=== PATIENT | female | born 1930 | race Caucasian/White ===

== ENCOUNTER 2017-03-05 11:02 | Observation (INO) | payer MEDICARE, OTHER ==
[2017-03-05 11:49] LABS: Hematocrit 38 % (35-47); Hemoglobin 12.8 g/dl (12.0-16.0); Mean Corpuscular HGB Conc 34 g/dl (31-36); Mean Corpuscular Hemoglobin 33 pg (27-31); Mean Corpuscular Volume 97 fL (80-97); Mean Platelet Volume 9 um3 (7.4-10.4); Red Cell Distribution Width 13 % (10.5-15); White Blood Count 5.8 10^3/ul (3.5-10.8)
[2017-03-05] MEDS ORDERED: NS 0.9% 1000 ML* 1,000 ML IV ONE (12:00)
--- NOTE | 2017-03-05 12:00 | RAD ---
HISTORY: Syncope COMPARISONS: October 19, 2009 VIEWS: 2: Frontal and lateral views of the chest. FINDINGS: CARDIOMEDIASTINAL SILHOUETTE: The aorta is tortuous. The cardiomediastinal silhouette is otherwise unremarkable. LISA: The lisa are normal. PLEURA: The costophrenic angles are sharp. No pleural abnormalities are noted. LUNG PARENCHYMA: The lungs are clear. ABDOMEN: The upper abdomen is clear. There is no subphrenic gas. BONES AND SOFT TISSUES: No bone or soft tissue abnormalities are noted. OTHER: None. IMPRESSION: NO ACTIVE CARDIOPULMONARY DISEASE.
[2017-03-05 12:03] LABS: Albumin 3.1 g/dL (3.2-5.2); EGFR African American 67.8 (>60); EGFR Non-African American 52.7 (>60); Globulin 2.2 g/dL (2-4); Magnesium 2.3 mg/dL (1.9-2.7); Potassium 4.2 mmol/L (3.5-5.0); Total Bilirubin 0.7 mg/dL (0.2-1.0); Total Protein 5.3 g/dL (6.4-8.9)
[2017-03-05 13:36] LABS: Urine Bacteria Absent (Absent); Urine Bilirubin Negative (Negative); Urine Glucose Negative (Negative); Urine Nitrite Negative (Negative)
[2017-03-05 13:43] LABS: TSH (Thyroid Stimulating Horm) 4.64 mcIU/mL (0.34-5.60)
--- NOTE | 2017-03-05 17:00 | HP ---
CC: Dr. Carrillo; Dr. Sanon * [facility] MEDICINE HISTORY AND PHYSICAL: DATE OF ADMISSION: 03/05/17 PRIMARY CARE PHYSICIAN: Dr. Carrillo. INFORMATION SYSTEMS SECURITY ANALYST: Dr. Sanon. ATTENDING PHYSICIAN: Dr. Corey Hughes * (dictation provided by Preet Kaiser NP ). CHIEF COMPLAINT: Syncope. HISTORY OF PRESENT ILLNESS: Ms. Hickey is an 86-year-old female with a past medical history of dementia, coronary artery disease, cardiomyopathy with ejection fraction 30% to 35%, left bundle branch block, and hypertension, who presents to the hospital today with concern for syncopal episode. Ms. Hickey does have memory issues and much of the HPI is obtained from her who is at the bedside. Per the report, Ms. Hickey has been doing well in normal state of health with no complaints. She went this morning for a anabaptism breakfast. She ate pancakes and shortly thereafter, she passed out. She has no real clear recollection of the events. EMS was immediately called and she was brought to the hospital for evaluation. EMS noted that the patient had a sinus bradycardia with a heart rate running in the 40s. There was no report of loss of bowel or bladder control and no evidence that she bit her tongue. In the emergency room, Ms. Hickey was confirmed to be in a sinus bradycardia with a heart rate running in the 40s. Blood pressure was transiently low into the 70s, but has otherwise been running systolically in the 130s and I questioned whether or not this one time low blood pressure was accurate. Her labs are unremarkable. Her electrolytes are normal. EKG shows no acute process. PAST MEDICAL HISTORY: 1. Dementia. 2. Coronary artery disease, which is nonobstructive on last cardiac catheterization from 2009. 3. Cardiomyopathy with an ejection fraction 30% to 35% via last echo from 2014. 4. History of syncopal episodes, but none in the past 4 to 5 years. 5. History of PACs 6. History of PVCs. 7. History of paroxysmal SVT. 8. Left bundle branch block. 9. Hypertension. 10. Hypothyroidism. 11. Systemic lupus erythematosus. MEDICATIONS: As outpatient are: 1. Carvedilol 6.25 mg p.o. at 12 and at bedtime. 2. Donepezil 10 mg p.o. at noon. 3. Raloxifene 60 mg p.o. daily. 4. Aspirin 81 mg p.o. daily. 5. Cyanocobalamin 1000 mcg daily. 6. Levothyroxine 75 mcg p.o. daily. 7. Losartan 100 mg p.o. at noon. 8. Namenda XR 28 mg p.o. at bedtime. 9. Simvastatin 20 mg p.o. daily. ALLERGIES: To PROPOXYPHENE. FAMILY HISTORY: Father at 88 of old age. Mother at 97 of old age, but she also had a history of breast cancer. SOCIAL HISTORY: No report of alcohol, tobacco, or drug use. She lives with her who is her healthcare proxy. REVIEW OF SYSTEMS: A 14-point review of systems was completed with the patient and because of her memory loss, I also reviewed this with her who noted no acute complaints for her recently. PHYSICAL EXAMINATION GENERAL: Ms. Hickey is lying on the bed. She is in no acute distress. VITAL SIGNS: Temperature 96.8, heart rate 46, respiratory rate 15, O2 saturation 93% on room air, blood pressure 102/69. LUNGS: Clear to auscultation bilaterally with no accessory muscle use and good aeration. HEART: S1 and S2. No murmur, rub, or gallop, and regular. ABDOMEN: Soft and nontender with bowel sounds positive x4. EXTREMITIES: No cyanosis or edema. NEURO: She is alert, she is oriented x3, although she is forgetful, she is aware of where she is, and interacts appropriately. She moves all extremities equally. There is no facial asymmetry or focal weakness. Extraocular movements are intact. SKIN: Intact. DIAGNOSTIC STUDIES/LAB DATA: Sodium 140, potassium 4.2, chloride 107, serum bicarbonate 30, BUN 13, creatinine 1.00, glucose 100, lactic acid 1.0. TSH 4.64. WBC 5.8, hemoglobin 12.8, hematocrit 38, and platelet count 113. INR 1.01. Urine shows only trace leuk esterase. Chest x-ray shows no acute process. EKG shows sinus bradycardia with no evidence of ischemia with a heart rate of about 45. ASSESSMENT AND PLAN: Ms. Hickey is an 86-year-old female with past medical history of cardiomyopathy with an ejection fraction 30% to 35%, coronary artery disease, dementia, hypertension, who presents to the hospital today after syncopal episode at a anabaptism breakfast. Our plans are for observation in the hospital for the followin. Syncope: I question whether or not her syncope is related to her bradycardia. However, when I look back previous EKGs, her heart rate has been running in the 40s to 60s since 2007. Plan to hold carvedilol and Aricept, which is also shown to slow heart rate, tonight. The patient has no other symptoms to suggest infection or other etiology for her syncope. I will note that she has had episodes of syncope in the past, although it has been about 5 years since her last one. Those episodes were also worked up per the family's report and no known clear etiology was determined. The patient will be monitored on the telemetry unit. She will have orthostatic vital signs. 2. History of hypertension. Continue losartan. Plan to hold carvedilol tonight. 3. History of dementia. Plan to continue Namenda, but hold Aricept. 4. Hyperlipidemia. Continue simvastatin. 5. DVT prophylaxis with heparin subcu in this patient high risk for DVT. 6. Code status is full code. This was reviewed with the patient and at the bedside. 7. Disposition to telemetry. TIME SPENT: Approximately 60 minutes was spent in the admission of this patient , more than half time spent with the patient at the bedside reviewing the events leading up to this hospitalization, performing the physical examination, and reviewing my plan of care. PREET KAISER NP [id number]/[facility] #: [id number] ODILIA
[2017-03-05] MEDS ORDERED: Memantine XR CAP* 28 MG CAP.XR PO SCH (21:00)
[2017-03-05] MEDS: Heparin VIAL(*) 5000 UNITS/ML VIAL (FIVE THOUSAND) SUBCUT SCH (21:40)
[2017-03-06] MEDS ORDERED: Levothyroxine TAB* 75 MCG TAB PO SCH (06:00)
[2017-03-06] MEDS: Heparin VIAL(*) 5000 UNITS/ML VIAL (FIVE THOUSAND) SUBCUT SCH (08:54)
[2017-03-06] MEDS ORDERED: Carvedilol TAB* 6.25 MG PO SCH (09:00)
[2017-03-06] MEDS ORDERED: Aspirin Low Dose CHEW TAB* 81 MG PO SCH (09:00)
[2017-03-06] MEDS ORDERED: Cyanocobalamin TAB* 500 MCG PO SCH (09:00)
[2017-03-06] MEDS ORDERED: Atorvastatin* 10 MG TAB PO SCH (12:00)
[2017-03-06] MEDS ORDERED: Losartan TAB* 25 MG PO SCH (12:00)
[2017-03-06 12:50] VITALS: BP 123/60
--- NOTE | 2017-03-07 05:40 | DS ---
CC: Dr. Carrillo; Dr. Sanon DISCHARGE SUMMARY: DATE OF ADMISSION: 03/05/17 DATE OF DISCHARGE: 03/06/17 PRIMARY CARE PROVIDER: Dr. Carrillo. BUILDING CONSTRUCTION ESTIMATOR: Dr. Sanon. DISCHARGE DIAGNOSIS: Syncopal episode. SECONDARY DIAGNOSES: 1. Dementia. 2. Coronary artery disease. 3. Cardiomyopathy with ejection fraction of 30% to 35%. 4. History of prior syncopal episodes. 5. History of paroxysmal supraventricular tachycardia. 6. Left bundle-branch block. 7. Hypertension. 8. Hypothyroidism. 9. Systemic lupus erythematosus. MEDICATION LIST: 1. Aspirin 81 mg p.o. daily. 2. Carvedilol 6.25 mg p.o. at noon and 9 p.m. 3. Vitamin B12 300 mcg p.o. daily. 4. Levothyroxine 75 mcg p.o. daily. 5. Losartan 100 mg p.o. daily. 6. Raloxifene 60 mg p.o. daily. 7. Simvastatin 20 mg p.o. daily. Aricept and Namenda XR were discontinued. HOSPITAL COURSE: Mrs. Hickey is an 86-year-old lady with a past medical history as stated above that presented to the emergency room after a syncopal episode. The patient has dementia, is pleasantly c onfused at baseline and yesterday she went to a Taoism breakfast that included pancakes and after ea ting when they were on their way out, the patient passed out. She is unable to provide any details about her symptoms. The patient was monitored on telemetry where she had no significant arrhythmias. Troponin was negati ve. She had no signs of infection. She was mildly orthostatic and I did discuss with the patient and her son at bedside that Aricept an d Namenda, especially the extended release formulation can be associated with orthostasis and syncop al episodes. The son was in agreement with stopping those medications for now. The patient was fou nd to be mildly bradycardic in the high 50s, but this appears to be asymptomatic and her carvedilol was not changed. The patient has a systolic murmur on physical examination and the initial plan was for her to have a n echocardiogram done today and depending on the result be discharged home. Arrangements were made for the test, but when the bioprocessing manufacturing technician arrived to the bedside, the patient and her son refused t he test and states that they need to go home right now and would have the echocardiogram done as out patient. An echocardiogram done in 2007 had shown some aortic sclerosis and I suspect her murmur no w probably represents aortic stenosis. So, I believe she would benefit of an echocardiogram as outp atient for further evaluation of this syncopal episode. At this point, the patient is asymptomatic. She will be discharged home. She will follow up with Chad Carrillo as outpatient. PHYSICAL EXAMINATION: Vital Signs: Temperature 98.6, heart rate is 64, respiratory rate is 16, oxy gen saturation is 93% on room air, and blood pressure is 123/60. General: The patient is a pleasan tly confused elderly lady, sitting up in recliner, in no acute distress. CVS: Normal S1, S2. Regu lar rate and rhythm with a systolic murmur. Chest: Breath sounds present bilaterally with no added sounds. Neuro: She is alert, awake, oriented to self and place. Able to move all 4 extremities. DIET: Heart healthy diet. ACTIVITIES: As tolerated. DISPOSITION: To home. STATUS WHILE IN THE HOSPITAL: Observation. Please keep in mind that this is a summarized version of this patient's hospital stay. If you need m ore information, please feel free to call me at [phone] or please obtain the full medical recor ds. TIME SPENT: Approximately 45 minutes were spent to complete this discharge. [id number]/[facility] #: [id number]
--- NOTE | 2017-03-11 12:34 | ED ---
Alissa Branch SooYoung, scribed for Keenan Bowens MD on 03/05/17 at 1335 . Syncope/Near Syncope - HPI Summary HPI Summary: An 86 y/o F presents to ED after syncopal episode this AM. Pt was standing and talking to friends at onset of episode. Associated sx: vomiting. Denies neck pain, head trauma, CP. She ate and finished breakfast without problem. States she's been eating normally, although she is a light eater. Denies recent illness. PMHx: low ejection fraction. is positive that the pt didn't double her dose of meds. Denies prev ID. - History Of Current Complaint Chief Complaint: EDSyncope Time Seen by Provider: 03/05/17 12:00 Hx Obtained From: Patient, Family/Medical Manager Onset/Duration: Sudden Onset, Resolved - spontaneous Timing: Frequency Of Episodes - 1x Context: Witnessed Activity At Onset: At Rest - standing, talking Associated Head Trauma: No Associated Signs And Symptoms: Vomiting - Allergies/Home Medications Allergies/Adverse Reactions: Allergies Allergy/AdvReac Type Severity Reaction Status Date / Time Propoxyphene [From Darvon] Allergy Unknown Unknown Verified 04/20/15 15:28 Reaction Details PMH/Surg Hx/FS Hx/Imm Hx Previously Healthy: No Cardiovascular History: Reports: Other Cardiovascular Problems/Disorders - low ejection fraction Denies: Hx Myocardial Infarction, Hx Pacemaker/ICD Sensory History: Denies: Hx Hearing Aid Psychiatric History: Denies: Hx Panic Disorder - Surgical History Surgery Procedure, Year, and Place: TONSILS, RIGHT KNEE 1982, CATARACTS 2002, SPOKE WITH ODILON MICHAUD Infectious Disease History: No Infectious Disease History: Denies: Traveled Outside the [place] in Last 30 Days - Family History Known Family History: Positive: Other - Breast CA -mom - Social History Occupation: Retired Lives: With Family Alcohol Use: None Alcohol Amount: RECOVERING ALCOHOLIC SINCE 1981 Hx Substance Use: No Substance Use Type: Reports: None Hx Tobacco Use: Yes Smoking Status (MU): Former Smoker Review of Systems Negative: Fever, Chills Negative: Erythema Negative: Sore Throat Negative: Chest Pain Negative: Shortness Of Breath, Cough Positive: Vomiting. Negative: Abdominal Pain, Nausea Negative: dysuria, hematuria Negative: Myalgia, Edema, Other - neg:neck pain, head trauma Negative: Rash Neurological: Other - neg: dizziness Positive: Syncope All Other Systems Reviewed And Are Negative: Yes Physical Exam - Summary Physical Exam Summary: Constitutional: Well-developed, Well-nourished, Alert. (-) Distressed Skin: Warm, Dry HENT: Normocephalic; Atraumatic Eyes: Conjunctiva normal Neck: Musculoskeletal ROM normal neck. (-) JVD, (-) Stridor, (-) Tracheal deviation Cardio: Rhythm regular, rate normal, Heart sounds normal; Intact distal pulses; The pedal pulses are 2+ and symmetric. Radial pulses are 2+ and symmetric. (-) Murmur Pulmonary/Chest wall: Effort normal. (-) Respiratory distress, (-) Wheezes, (-) Rales Abd: Soft, (-) Tenderness, (-) Distension, (-) Guarding, (-) Rebound Musculoskeletal: (-) Edema Lymph: (-) Cervical adenopathy Neuro: Alert, Oriented x3 Psych: Mood and affect Normal Triage Information Reviewed: Yes Vital Signs On Initial Exam: Initial Vitals Temp Pulse Resp BP Pulse Ox 96.8 F 47 12 134/57 95 03/05/17 11:16 03/05/17 11:16 03/05/17 11:16 03/05/17 11:16 03/05/17 11:16 Vital Signs Reviewed: Yes - [place] Coma Scale Coma Scale Total: 14 Diagnostics - Vital Signs Vital Signs Temp Pulse Resp BP Pulse Ox 03/05/17 13:00 44 15 93 03/05/17 12:55 45 12 133/58 98 03/05/17 12:30 46 14 79/57 94 03/05/17 12:15 47 14 101/89 94 03/05/17 12:00 44 15 141/55 92 03/05/17 11:55 105/59 03/05/17 11:34 45 15 97 03/05/17 11:31 45 15 137/61 97 03/05/17 11:23 46 96 03/05/17 11:22 134/57 03/05/17 11:16 96.8 F 47 12 134/57 95 - Laboratory Lab Results: Lab Results 03/05/17 03/05/17 03/05/17 Range/Units 11:33 11:33 11:33 WBC 5.8 (3.5-10.8) 10^3/ul RBC 3.90 L (4.0-5.4) 10^6/ul Hgb 12.8 (12.0-16.0) g/dl Hct 38 (35-47) % MCV 97 (80-97) fL MCH 33 H (27-31) pg MCHC 34 (31-36) g/dl RDW 13 (10.5-15) % Plt Count 113 L (150-450) 10^3/ul MPV 9 (7.4-10.4) um3 Neut % (Auto) 54.4 (38-83) % Lymph % (Auto) 36.4 (25-47) % [place] % (Auto) 5.6 (1-9) % Eos % (Auto) 2.3 (0-6) % Baso % (Auto) 1.3 (0-2) % Absolute Neuts (auto) 3.2 (1.5-7.7) 10^3/ul Absolute Lymphs (auto) 2.1 (1.0-4.8) 10^3/ul Absolute Monos (auto) 0.3 (0-0.8) 10^3/ul Absolute Eos (auto) 0.1 (0-0.6) 10^3/ul Absolute Basos (auto) 0.1 (0-0.2) 10^3/ul Absolute Nucleated RBC 0 10^3/ul Nucleated RBC % 0 INR (Anticoag Therapy) 1.01 (0.89-1.11) APTT 22.8 L (26.0-36.3) seconds Sodium 140 (133-145) mmol/L Potassium 4.2 (3.5-5.0) mmol/L Chloride 107 (101-111) mmol/L Carbon Dioxide 30 (22-32) mmol/L Anion Gap 3 (2-11) mmol/L BUN 13 (6-24) mg/dL Creatinine 1.00 H (0.51-0.95) mg/dL Est GFR ( Amer) 67.8 (>60) Est GFR (Non-Af Amer) 52.7 (>60) BUN/Creatinine Ratio 13.0 (8-20) Glucose 100 (70-100) mg/dL Lactic Acid (0.5-2.0) mmol/L Calcium 8.0 L (8.6-10.3) mg/dL Magnesium 2.3 (1.9-2.7) mg/dL Total Bilirubin 0.70 (0.2-1.0) mg/dL AST 16 (13-39) U/L ALT 8 (7-52) U/L Alkaline Phosphatase 45 (34-104) U/L Ammonia (16-53) mol/L Total Creatine Kinase 35 (10-223) U/L Troponin I 0.00 (<0.04) ng/mL Total Protein 5.3 L (6.4-8.9) g/dL Albumin 3.1 L (3.2-5.2) g/dL Globulin 2.2 (2-4) g/dL Albumin/Globulin Ratio 1.4 (1-3) TSH Pending 03/05/17 03/05/17 Range/Units 11:33 11:33 WBC (3.5-10.8) 10^3/ul RBC (4.0-5.4) 10^6/ul Hgb (12.0-16.0) g/dl Hct (35-47) % MCV (80-97) fL MCH (27-31) pg MCHC (31-36) g/dl RDW (10.5-15) % Plt Count (150-450) 10^3/ul MPV (7.4-10.4) um3 Neut % (Auto) (38-83) % Lymph % (Auto) (25-47) % [place] % (Auto) (1-9) % Eos % (Auto) (0-6) % Baso % (Auto) (0-2) % Absolute Neuts (auto) (1.5-7.7) 10^3/ul Absolute Lymphs (auto) (1.0-4.8) 10^3/ul Absolute Monos (auto) (0-0.8) 10^3/ul Absolute Eos (auto) (0-0.6) 10^3/ul Absolute Basos (auto) (0-0.2) 10^3/ul Absolute Nucleated RBC 10^3/ul Nucleated RBC % INR (Anticoag Therapy) (0.89-1.11) APTT (26.0-36.3) seconds Sodium (133-145) mmol/L Potassium (3.5-5.0) mmol/L Chloride (101-111) mmol/L Carbon Dioxide (22-32) mmol/L Anion Gap (2-11) mmol/L BUN (6-24) mg/dL Creatinine (0.51-0.95) mg/dL Est GFR ( Amer) (>60) Est GFR (Non-Af Amer) (>60) BUN/Creatinine Ratio (8-20) Glucose (70-100) mg/dL Lactic Acid 1.0 (0.5-2.0) mmol/L Calcium (8.6-10.3) mg/dL Magnesium (1.9-2.7) mg/dL Total Bilirubin (0.2-1.0) mg/dL AST (13-39) U/L ALT (7-52) U/L Alkaline Phosphatase (34-104) U/L Ammonia 29 (16-53) mol/L Total Creatine Kinase (10-223) U/L Troponin I (<0.04) ng/mL Total Protein (6.4-8.9) g/dL Albumin (3.2-5.2) g/dL Globulin (2-4) g/dL Albumin/Globulin Ratio (1-3) TSH Result Diagrams: 03/05/17 11:33 03/05/17 11:33 Lab Statement: Any lab studies that have been ordered have been reviewed, and results considered in the medical decision making process. - Radiology CXR Xray Interpretation: No Acute Changes - IMPRESSION: No active cardiopulmonary dz. ED physician has reviewed this radiology report and agrees. Radiology Interpretation Completed By: Radiologist - EKG 1 Cardiac Rate: Bradycardia - 45bpm EKG Rhythm: Sinus Bradycardia EKG Interpretation: LBBB with frequent PVCs not perfusing Re-Evaluation - Re-Evaluation 1 Re-Evaluation Time: 15:15 Comment: Discussing results with pt and family, plan to admit. They voiced understanding. Course/Dx Course Of Treatment: An 86 y/o F presents to ED after syncopal episode this AM. Pt was standing and talking to friends at onset of episode. Associated sx: vomiting. Denies neck pain, head trauma, CP. She ate and finished breakfast without problem. States she's been eating normally, although she is a light eater. Denies recent illness. PMHx: low ejection fraction. is positive that the pt didn't double her dose of meds. Denies prev ID. Pt given fluids in ED. Bloodwork is without significant abnormalities. UA results are 1+ ketones, 1 + blood, trace leukocyte esterase. - Diagnoses Provider Diagnoses: Syncope - Physician Notifications Discussed Care of Patient With: Corey Hughes - hospitalist Time Discussed With Above Provider: 13:45 Instructed by Provider To: Admit As Inpatient Discharge - Discharge Plan Condition: Fair Disposition: ADMITTED TO [facility] The documentation as recorded by the Alissa ervin SooYoung accurately reflects the service I personally performed and the decisions made by me, Keenan Bowens MD.
== END 2017-03-06 13:17 | disposition home or self-care (01) ==
LOC: ED 11:02 → MEDTELE 14:16
PROVIDERS: ADMIT Internal Medicine; ATTEND Internal Medicine
DX: R55 Syncope and collapse (principal); F03.90 Unspecified dementia, unspecified severity, without behavioral disturbance, psychotic disturbance, mood disturbance, and anxiety; I25.10 Atherosclerotic heart disease of native coronary artery without angina pectoris; I10 Essential (primary) hypertension; I42.9 Cardiomyopathy, unspecified; I44.7 Left bundle-branch block, unspecified; E03.9 Hypothyroidism, unspecified; M32.9 Systemic lupus erythematosus, unspecified; R00.1 Bradycardia, unspecified; Z79.899 Other long term (current) drug therapy; Z88.8 Allergy status to other drugs, medicaments and biological substances
CPT/HCPCS: 36415; 71020; 80053; 81003; 81015; 82140; 82550; 83605; 83735; 84443; 84484; 85025; 85610; 85730; 87086; 93005; 96360; 96372; 99284; A9270-GY; G0378; J1644

== ENCOUNTER 2019-04-26 06:36 | Inpatient (IN) | payer MEDICARE ==
[2019-04-26] MEDS ORDERED: NS 0.9% 1000 ML** 1,000 ML IV ONE (06:39)
--- NOTE | 2019-04-26 06:42 | ED ---
Neurological HPI - HPI Summary HPI Summary: 88 year old female presents to the ED by EMS with slurred speech starting at 0550 per EMS. CODE JORGE CALLED AT 0636. THIS IS A LEVEL 5 CAVEAT, PATIENT IS UNABLE TO GIVE HISTORY. Last known well at 0550. Patient was at baseline when she suddenly began slurring speech while ambulating to the shower, per EMS. Per EMS, no other outward symptoms. Per [place], patient is freely ambulatory at baseline and speaks to her . PMHx of cardiomyopathy, hypothyroidism, HTN , HLD, and osteoporosis. No Hx of CVA. Lives at [facility]. - History of Current Complaint Stated Complaint: POSS STROKE PER EMS Hx Obtained From: EMS Hx From Patient Unobtainable Due To: Altered Mental Status Onset/Duration: Sudden Onset, Started minutes ago Neurological Deficit Location: Generalized Character: Impaired Speech Alleviating: Unknown Associated Signs and Symptoms: Positive: Impaired Speech TPA Considered: Yes - Allergy/Home Medications Allergies/Adverse Reactions: Allergies Allergy/AdvReac Type Severity Reaction Status Date / Time propoxyphene [From Darvon] Allergy Unknown Unknown Verified 04/26/19 07:01 Reaction Details PMH/Surg Hx/FS Hx/Imm Hx Cardiovascular History: Reports: Other Cardiovascular Problems/Disorders - low ejection fraction Denies: Hx Myocardial Infarction, Hx Pacemaker/ICD Sensory History: Denies: Hx Contacts or Glasses, Hx Hearing Aid Opthamlomology History: Denies: Hx Contacts or Glasses Psychiatric History: Denies: Hx Panic Disorder - Surgical History Surgery Procedure, Year, and Place: TONSILS, RIGHT KNEE 1982, CATARACTS 2002, SPOKE WITH ODILON MICHAUD - Family History Known Family History: Positive: Other - Breast CA -mom - Social History Alcohol Use: None Alcohol Amount: RECOVERING ALCOHOLIC SINCE 1981 Hx Substance Use: No Substance Use Type: Reports: None Hx Tobacco Use: Yes Smoking Status (MU): Former Smoker Review of Systems - ROS Summary Review of Systems Summary: THIS IS A LEVEL 5 CAVEAT Home Medications Medication Instructions Recorded Confirmed Type Aspirin 81 mg CHEW TAB* 81 mg PO DAILY 04/20/15 03/05/17 History Carvedilol TAB* [Coreg TAB*] 6.25 mg PO 1200,2100 04/20/15 03/05/17 History Cyanocobalamin TAB* [Vitamin B12 1,000 mcg PO DAILY 04/20/15 03/05/17 History TAB*] Levothyroxine Sodium [Synthroid] 75 mcg PO DAILY 04/20/15 03/05/17 History Losartan Potassium 100 mg PO 1200 04/20/15 03/05/17 History Raloxifene (NF) [Evista(NF)] 60 mg PO 1200 04/20/15 03/05/17 History Simvastatin TAB(NF) [Zocor 20 MG 20 mg PO 1200 04/20/15 03/05/17 History (NF)] Vitamin B 12 300 mcg PO DAILY 03/06/17 03/06/17 History Negative: Fever Positive: Slurred Speech All Other Systems Reviewed And Are Negative: No Physical Exam - Summary Physical Exam Summary: THIS IS A LEVEL 5 CAVEAT General: Well-developed, Well-nourished , Elderly female. No apparent distress. Intermittently follows commands. HEENT: Normocephalic, Atraumatic. Eyes: Conjuctiva normal, PERRL. Ears: TMs within normal limits. Nares: (-) discharge, (-) erythema. Oropharynx: Clear, mucous membranes moist, (-) exudates. Neck: Soft, FROM, (-) lymphadenopathy, (-) thyromegaly, (-) JVD. Cardiovascular: Normal sinus rhythm, (-) murmur. Lungs: Clear to auscultation bilaterally (-) wheezes, (-) rales, (-) rhonchi. Abdomen: Soft, non-tender, non-distended, (-) organomegaly, normal bowel sounds. Back: (-) CVA tenderness Extremities: No edema. Skin: Warm, dry, (-) rash. Neuro: Alert, not oriented. Speech is jumbled. Psychiatric: Mood normal, affect is mildly agitated. Triage Information Reviewed: Yes Vital Signs Reviewed: Yes Completion Of Physical Exam Limited Due To: Level 5 - [place] Coma Scale Best Eye Response: 4 - Spontaneous Best Motor Response: 5 - Purposeful Movement Best Verbal Response: 2 - Incomprehensible Words Coma Scale Total: 11 Procedures - Sedation Patient Received Moderate/Deep Sedation with Procedure: No Diagnostics - Laboratory Result Diagrams: 04/26/19 06:56 04/26/19 06:56 Lab Statement: Any lab studies that have been ordered have been reviewed, and results considered in the medical decision making process. - CT Brain CT CT Interpretation Completed By: Radiologist Summary of CT Findings: IMPRESSION: There is significant motion noted limiting evaluation of the brain base. There is no acute intracranial hemorrhage or significant mass effect visualized. Recommend repeat imaging. - EKG 0656 Cardiac Rate: NL Summary of EKG Findings: EKG at 0656 shows sinus rhythm at 61 bpm. LBBB. No acute changes. No STEMI. Dr. Sanders reviewed and interpreted this EKG. NIH Scale - NIH Scale Level of Consciousness: Alert/Keenly Responsive Ask Patient the Month and His/Her Age: Neither Correct/Aphasic Ask Pt to Open/Close Eyes and Cafe Associate/Release Non-Paretic Hand: Neither Correctly Best Gaze (Only Horizontal Eye Movement): Normal Visual Field Testing: No Visual Loss Facial Paresis-Pt to Smile & Close Eyes or Grimace Symmetry: Normal/Symmetrical Motor Function - Right Arm: No Drift-Holds 10 Seconds Motor Function - Left Arm: No Drift-Holds 10 Seconds Motor Function - Right Leg: No Drift-Holds 10 Seconds Motor Function - Left Leg: No Drift-Holds 10 Seconds Limb Ataxia-Must be out of Proportion to Weakness Present: Absent Sensory (Use Pinprick to Test Arms/Legs/Trunk/Face): Normal Best Language (Describe Picture, Name Items): Mute/Global Aphasia Dysarthria (Read Several Words): Unintelligible or Mute Extinction and Inattention: No Abnormality Total Score: 9 Re-Evaluation - Re-Evaluation First Eval Re-Evaluation Time: 07:15 Comment: Entered the room with the pt after receiving sign-out from Dr. Sanders and spoke initially with Dr. Fagan over the telestroke. Last well known was 549 this date. Second Eval Re-Evaluation Time: 07:26 Comment: Spoke again with Dr. Fagan on the telestroke from [place]. After assessment of the patient he recommends TPA and requests for us to contact family to see if they want to go through with it. I spoke with Odilon Michaud, the patient's son, and he reports that he is unable to give consent now. He needs to talk to other family members and will call back in 10 minutes. Third Eval Re-Evaluation Time: 07:38 Comment: Spoke again with Odilon Michaud, the pt's son. He requested that we give TPA to the pt. Dr. Fagan does not recommend CTA. At 0742 TPA was administered to the pt. Fourth Eval Re-Evaluation Time: 08:11 Comment: Consulted Dr. Adam regarding the pt's case. Course/Dx - Course Course Of Treatment: Signing out patient from Dr. Sanders to Dr. Ozuna at change of shift 0700 on 04/26/19, pending repeat CT, workup, and disposition. - Diagnoses Provider Diagnoses: CVA (cerebral vascular accident) During the Visit The Following Alert/Code Occurred: Code Sosa Is Visit Related: No Discharge ED - Sign-Out/Discharge Documenting (check all that apply): Sign-Out Patient Signing out patient TO: Alli Ozuna - Signing out patient from Dr. Sanders to Dr. Ozuna at change of shift 0700 on 04/26/19. - Discharge Plan Condition: Stable Disposition: ADMITTED TO [facility] - Billing Disposition and Condition Condition: STABLE Disposition: Admitted to [facility] - Attestation Statements Document Initiated by Scribe: Yes Documenting Scribe: Andres Peck Provider For Whom Vijaya is Documenting (Include Credential): Citlali Sanders MD Scribe Attestation: Andres Branch, scribed for Citlali Sanders MD on 04/26/19 at 1958. Scribe Documentation Reviewed: Yes Provider Attestation: The documentation as recorded by the Andres ervin accurately reflects the service I personally performed and the decisions made by Citlali marcos MD Status of Scribe Document: Viewed
--- NOTE | 2019-04-26 07:12 | ED ---
Progress - Progress Note Progress Note: The pt is a sign-out from Dr. Sanders at the 0700 04/26/2019 shift change pending repeat Brain CT, work up, and disposition. Re-Evaluation - Re-Evaluation First Eval Re-Evaluation Time: 07:15 Comment: Entered the room with the pt after receiving sign-out from Dr. Sanders and spoke initially with Dr. Fagan over the telestroke. Last well known was 0550 this date. Second Eval Re-Evaluation Time: 07:26 Comment: Spoke again with Dr. Fagan on the telestroke from [facility]. After assessment of the patient he recommends TPA and requests for us to contact family to see if they want to go through with it. I spoke with Jareth Hickey, the patient's son, and he reports that he is unable to give consent now. He needs to talk to other family members and will call back in 10 minutes. Third Eval Re-Evaluation Time: 07:38 Comment: Spoke again with Jareth Hickey, the pt's son. He requested that we give TPA to the pt. Dr. Fagan does not recommend CTA. At 0742 TPA was administered to the pt. Fourth Eval Re-Evaluation Time: 08:11 Comment: Consulted Dr. Adam regarding the pt's case. Course/Dx - Course Course Of Treatment: This patient was signed out by Dr. Sanders at shift change. She reports that the patient is an 88-year-old female who presents to the emergency department from [facility] with a chief complaint of slurred speech and unable to follow commands. She called a mika barrios sensitivities that the patient had another stroke. initial NIH score is equal to 9. Dr. Sanders and spoke with Dr. Fagan from [facility] and currently he is going to Telestroke. After Dr. Fagans assessment he recommends TPA. I did speak with Jareth Hickey the patients son and after he discussed the benefits and risk with the family members they decided to give the TPA. Therefore Dr. Fagan recommended TPA. He does not recommend as CTA at this point due to the severity of the Alzheimers disease. She recommends for the patient to be admitted to the hospital services. I discussed the findings and test results with Dr. Dennis from the intensive care and she accepted patient for admission. Patient seems to be getting better since the patient is able to speak in full sentences. - Diagnoses Provider Diagnoses: CVA (cerebral vascular accident) During the Visit The Following Alert/Code Occurred: Code Sosa Is Visit Related: No - Provider Notifications Discussed Care Of Patient With: Mine Gomez - Dr. Gomez will admit the pt to [facility]. Time Discussed With Above Provider: 08:30 Instructed by Provider To: Admit As Inpatient Discharge ED - Sign-Out/Discharge Documenting (check all that apply): Patient Departure - admit, Receiving Sign- Out Receiving patient FROM: Citlali Sanders - Discharge Plan Condition: Stable Disposition: ADMITTED TO [facility] - Billing Disposition and Condition Condition: STABLE Disposition: Admitted to [facility] - Attestation Statements Document Initiated by Scribe: Yes Documenting Scribe: Jeevan Panda Provider For Whom Vijaya is Documenting (Include Credential): Alli Ozuna MD Scribe Attestation: Jeevan Branch, scribed for Alli Ozuna MD on 04/26/19 at 1850. Scribe Documentation Reviewed: Yes Provider Attestation: The documentation as recorded by the miguelibJeevan khan accurately reflects the service I personally performed and the decisions made by Alli marcos MD Status of Scribe Document: Viewed
[2019-04-26 07:18] LABS: Activated Partial Thrombo Time 19.7 seconds (26.0-38.0); INR 1.06 (0.82-1.09)
[2019-04-26 07:19] LABS: ABS Basophils 0.1 10^3/ul (0-0.2); ABS Eosinophils 0.2 10^3/ul (0-0.6); ABS Lymphocytes 2.5 10^3/ul (1.0-4.8); ABS Monocytes 0.6 10^3/ul (0-0.8); ABS Neutrophils 3.1 10^3/ul (1.5-7.7); Eosinophil % 2.8 %; Hematocrit 36 % (35-47); Lymphocyte % 39.2 %; Mean Corpuscular HGB Conc 34 g/dL (31-36); Mean Corpuscular Hemoglobin 33 pg (27-31); Mean Corpuscular Volume 98 fL (80-97); Mean Platelet Volume 10.2 fL (7.4-10.4); Platelet Count 119 10^3/uL (150-450); Red Blood Count 3.65 10^6 /uL (3.70-4.87); Red Cell Distribution Width 13 % (10-15); White Blood Count 6.3 10^3/uL (3.5-10.8)
[2019-04-26 07:29] LABS: Albumin 3.2 g/dL (3.2-5.2); Albumin/Globulin Ratio 1.6 (1-3); BUN/Creatinine Ratio 19.4 (8-20); Calcium 8.5 mg/dL (8.6-10.3); EGFR African American 49.5 (>60); EGFR Non-African American 40.9 (>60); HDL Cholesterol 58.2 mg/dL; Potassium 3.9 mmol/L (3.5-5.0); Total Bilirubin 0.7 mg/dL (0.2-1.0); Total Protein 5.2 g/dL (6.4-8.9)
[2019-04-26 07:30] LABS: Troponin I 0.02 ng/mL (<0.03)
[2019-04-26] MEDS ORDERED: Iodixanol* (CONTRAST) 320 MG/ML 100 ML SDV IV ONE (07:32)
[2019-04-26] MEDS ORDERED: Alteplase* 100 MG VIAL ONE (07:42)
[2019-04-26] MEDS ORDERED: ALTEPLASE IV ONE ×2 (07:42)
[2019-04-26 08:20] LABS: Urine Appearance Clear; Urine Bilirubin Negative (Negative); Urine Blood 2+ (Negative); Urine Color Yellow; Urine Glucose Negative (Negative); Urine Ketones Negative (Negative); Urine Nitrite Negative (Negative); Urine Protein Negative (Negative); Urine Specific Gravity 1.008 (1.010-1.030); Urine Urobilinogen Negative (Negative)
[2019-04-26 08:39] LABS: Urine Bacteria Absent (Absent); Urine Red Blood Cell 2+(6-10/hpf) (Absent); Urine White Blood Cell Absent (Absent)
[2019-04-26 09:30] LABS: TSH (Thyroid Stimulating Horm) 3.44 mcIU/mL (0.34-5.60)
--- NOTE | 2019-04-26 10:51 | HP ---
HISTORY AND PHYSICAL: DATE OF ADMISSION: 04/26/19 PRIMARY CARE PROVIDER: Outside of hospital, Dr. Carrillo. CONTINUITY PERSON: Dr. Sanon. CHIEF COMPLAINT: Expressive aphasia, confusion. HISTORY OF PRESENT ILLNESS: The patient is an 88-year-old female with a history of dementia, coronary artery disease, cardiomyopathy with ejection fraction 30% to 35%, left bundle-branch block, history of syncopal episodes in the past. The patient was brought in by EMS from [facility] for evaluation of new onset expressive aphasia, noticed this morning at 5:50 a.m. The patient is unable to provide any history. History obtained from review of emergency department documentation and speaking with emergency room provider. The patient was at her normal self, was noted to be having slurred speech starting at 5:50 a.m. this morning. The patient was brought in to the ED by EMS around 6 :36 and mika barrios was called. The patient started having slurred speech while ambulating to the shower per EMS. No other symptoms were reported. Per [place], the patient is freely ambulatory at baseline and speaks to her . There was a change in status this morning. Code denis was called. The patient had CT of the brain, which showed a lot of motion artifact; however , did not show any acute findings. Telestroke team at [facility] was contacted, TPA was recommended. The patient's family was contacted, and the patient's son Jareth Hickey gave consent for TPA, which was administered at 7:40 a.m. The patient had significant improvement in her mental status, post TPA. She was able to put a comprehensible sentence together post TPA. She appeared more confused and was more aphasic when she came in as per ED documentation. The patient was seen and examined at bedside. The patient appeared drowsy; however , wakes up to verbal stimuli. She was oriented to place, person, and date. She was able to name the year, however, was not able to say correct date and week. The patient becomes drowsy and falls asleep during the interview. The patient was asking why she was here. She did not remember anything that has happened since this morning. The patient admitted that she is in the hospital currently. She has been requesting to be able to go home. Denies any pain or any other issues currently. The patient states that she has to use rest room. The patient otherwise was able to follow commands. PAST MEDICAL HISTORY: 1. Dementia. 2. Coronary artery disease, nonobstructive and last cardiac cath from 2009. 3. Cardiomyopathy with ejection fraction 30% to 35%. 4. History of syncopal episodes. 5. History of PACs. 6. History of PVCs. 7. History of paroxysmal SVT. 8. Left bundle-branch block. 9. Hypertension. 10. Hypothyroidism. 11. SLE. MEDICATIONS: 1. Carvedilol. 2. Donepezil. 3. Raloxifene. 4. Aspirin. 5. Cyanocobalamin. 6. Levothyroxine. 7. Losartan. 8. Namenda. 9. Simvastatin. ALLERGIES: PROPOXYPHENE. FAMILY HISTORY: Father at age 88 due to old age. Mother at 97. History of breast cancer in the family. SOCIAL HISTORY: She was a prior alcoholic, has been sober since the 80s. No drug abuse or tobacco abuse. She lives in nursing facility with her who is her healthcare proxy. The patient is DNR. The patient's son also makes decisions for her. REVIEW OF SYSTEMS: Limited given the patient's condition. PHYSICAL EXAMINATION GENERAL: The patient in bed, in no apparent distress, drowsy but arousable to verbal stimuli and able to follow commands. VITAL SIGNS: Temperature 98, pulse 58 beats per minute, respiratory rate 18 per minute, O2 sat 98% on room air, blood pressure 122/56. HEENT: Pupils are equal. Surgical pupils noted. Mucous membranes are moist. NECK: Normal range of motion. No JVD. LUNGS: Clear to auscultation. No wheezing or rhonchi. CARDIOVASCULAR: S1, S2 present. Regular, normal audible murmurs. ABDOMEN: Soft, nontender, nondistended. Bowel sounds present. EXTREMITIES: Normal range of motion. SKIN: No rash. NEUROLOGIC: Alert and oriented to place and person. Speech is a still little bit slurred. The patient is able to spontaneously move all the extremities. No sensory deficits are noted. Cranial nerve exam is limited given the patient' s drowsiness. She was able to stick the tongue out, able to close the eyes shut. She was able to squeeze the fingers tight. PSYCHIATRIC: Slightly anxious. DIAGNOSTIC STUDIES/LAB DATA: WBC count 6.3, hemoglobin 12, hematocrit 36, platelet count 119. Sodium 143, potassium 3.9, chloride 110, bicarb 29, BUN 24 , creatinine 1.24. Glucose was 84 on BMP. Repeat glucose of 42 with point of care, repeat glucose ordered. Calcium 8.5, lactate within normal limits. AST slightly elevated at 45, T-bili 0.7, ALT 20, alk phos 45, total protein 5.2. LDL 61, total cholesterol of 133. UA showed 2+ blood and 2+ rbc's, likely traumatic from Delacruz insertion. CT of the brain as described above in HPI. Chest x-ray was personally reviewed. No acute cardiopulmonary disease noted. EKG showed sinus rhythm with ventricular rate around 65 and evidence of left bundle- branch block. ASSESSMENT AND PLAN: 88-year-old female with a history of dementia, coronary artery disease with systolic congestive heart failure, history of left bundle- branch block, lupus, hypothyroidism, and hypertension, admitted with slurred speech. Pt was also noted to have low blood glucose on point of care, however normal levels on BMP The patient was found to be having NIH stroke scale of 9. The patient received TPA around 7:40 a.m. on 04/26/19. The patient had quick neurological improvement post TPA. The patient will be admitted to ICU for close monitoring post TPA. She is not hypertensive at this time. Frequent neuro checks ordered. Will order f/u CT in am. Will avoid medications that could cause bleeding, monitor closely for any bleeding events. Monitor blood pressures closely. Neurology was consulted. Telestroke was consulted this morning by ED. Will continue with frequent neuro checks. Continue with IV fluids at low rate to avoid hypotension. TIME SPENT: Total time spent on admission is 45 minutes. [id number]/[facility] #: [id number] [facility]
[2019-04-26] MEDS: NS 0.9% 1000 ML** 1,000 ML IV SCH (11:00)
--- NOTE | 2019-04-26 13:43 | PN ---
Subjective Date of Service: 04/26/19 Length of Stay: 1 Days Neurology is following for sudden onset of word-finding difficulty. Interval History: Review of the history, Mrs. Hickey is an 88-year-old demented woman who lives at [facility] for the past one week who presented with an episode of aphasia. She was evaluated by Dr. Fagan via teleneurology. She had severe expressive aphasia and was given an NIHSS of 9. She had sudden onset of aphasia witnessed by staff. Witnessed onset of symptoms at 550 a.m. The patient was seen once transferred to the ICU. She had significant improvement in her speech and language. She was having conversations. She was asking the examiner to stay in the room with her and not leave her alone. She wanted to "go home." Family arrived at bedside. History was obtained and the patient unfortunately has dementia of 10+ years. She was wondering in the streets few weeks ago that led to the admission to a [facility]. Please note that the patient had hypoglycemia of blood glucose in the 40's, but reported blood glucose of 80's by EMS. It's unclear if the tPA or improvement in hypoglycemia improved her speech. She denied any headaches. Her BP is within a good range. She was crying every time the BP cuff turned on. Review of Systems: Denied CP, SOB, or palpitations. Objective Active Medications: Sodium Chloride (Ns 0.9% 1000 Ml) 1,000 mls @ 75 mls/hr IV PER RATE GERRI Vital Signs 04/26/19 04/26/19 04/26/19 06:39 06:49 06:52 Temperature 97.4 F Pulse Rate 52 66 Respiratory 12 Rate Blood Pressure 120/88 115/65 122/56 (mmHg) O2 Sat by Pulse 94 95 Oximetry 04/26/19 04/26/19 04/26/19 06:53 07:00 07:31 Temperature 98.0 F Pulse Rate 58 59 74 Respiratory 18 97 18 Rate Blood Pressure 122/56 120/88 (mmHg) O2 Sat by Pulse 98 96 93 Oximetry 04/26/19 04/26/19 04/26/19 08:00 08:54 09:00 Temperature Pulse Rate 54 48 49 Respiratory 13 17 17 Rate Blood Pressure 93/59 (mmHg) O2 Sat by Pulse 95 94 94 Oximetry 04/26/19 04/26/19 04/26/19 09:12 09:21 09:22 Temperature 97.4 F 97.4 F Pulse Rate 50 55 Respiratory 23 42 Rate Blood Pressure 93/59 119/77 (mmHg) O2 Sat by Pulse 94 95 Oximetry 04/26/19 04/26/19 04/26/19 09:29 09:31 09:46 Temperature 97.4 F Pulse Rate 49 55 57 Respiratory 14 21 22 Rate Blood Pressure 109/48 109/68 109/43 (mmHg) O2 Sat by Pulse 95 95 94 Oximetry 04/26/19 04/26/19 04/26/19 10:00 10:01 10:16 Temperature Pulse Rate 50 49 55 Respiratory 9 7 16 Rate Blood Pressure 109/48 86/53 (mmHg) O2 Sat by Pulse 96 94 Oximetry 04/26/19 04/26/19 04/26/19 10:21 10:32 10:46 Temperature Pulse Rate 45 65 54 Respiratory 11 24 45 Rate Blood Pressure 103/49 119/61 121/62 (mmHg) O2 Sat by Pulse 96 94 93 Oximetry 04/26/19 04/26/19 04/26/19 11:00 11:01 11:31 Temperature Pulse Rate 50 55 59 Respiratory 17 29 17 Rate Blood Pressure 103/76 107/90 (mmHg) O2 Sat by Pulse 97 98 96 Oximetry 04/26/19 04/26/19 12:00 12:30 Temperature 97.2 F Pulse Rate 49 59 Respiratory 10 19 Rate Blood Pressure 100/48 105/61 (mmHg) O2 Sat by Pulse 98 97 Oximetry Intake and Output Last 24 Hours 04/24/19 04/25/19 04/26/19 04/27/19 06:59 06:59 06:59 06:59 Intake Total 50 Output Total 0 Balance 50 Weight 107 lb 8 oz 107 lb Intake: Oral 50 Output: Delacruz 0 Oxygen Devices in Use Now: None Neurology Exam: General: Well nourished, well developed, and in no acute distress, frail female. HEENT: Normocephelic/atraumatic, sclera anicteric, mucous membranes moist Neck: Supple Chest: Clear to auscultation bilaterally Cardiovascular: Regular rate and rhythm without murmurs, rubs, gallops Extremities: No clubbing, cyanosis, or edema Neurological Findings: Awake, alert to self but not place or time. She is crying and feels scared. Reassurance was provided. Speech: fluent without dysarthria, repetition intact Cranial Nerve: PERRL, EOM intact, VFF, no nystagmus, face symmetric bilaterally , facial sensation intact Motor: moves all extremities antigravity and to command symmetrically. Sensation: intact to LT/PP bilaterally upper and lower extremities Deep Tendon Reflex: 1 symmetric in the upper/lower extremities, Babinski - down going. 0 at the ankles Finger to nose, rapid alternating movements intact without tremor, no dysdiadochokinesia Gait: wide based antalgic gait due to knee pain ont he right Result Diagrams: 04/26/19 06:56 04/26/19 06:56 Microbiology and Other Data: Microbiology 04/26/19 09:20 Nasal Screen MRSA (PCR) - Final Nasal Mrsa Not Detected Assessment/Plan Mrs. Vane Hickey is an 88-year-old female who has advanced dementia 10+ years, dyslipidemia, and hypertension who presented to [facility] for sudden onset word finding difficulty. The patient's neurological exam was notable for severe aphasia. She had an elevated NIHSS of 9. After family verbal consent, she received IV tPA. Few hours later, the patient is able to ambulate and speak without any difficulties. Her blood glucose had improved to the 100's. 1. Sudden onset aphasia. Differential diagnosis includes left MCA stroke vs. hypoglycemia. Symptoms resolved. Continue post-tPA care and monitoring. Recommendations: Please repeat a CT head without contrast 24 hours post tPA. Full consultation note was completed by Dr. Fagan from . Critical care time: 35 minutes discussing post-tPA care with the patient and family.
[2019-04-26] MEDS ORDERED: Haloperidol INJ IV/IM* 5 MG/ML AMP ONE (14:27)
[2019-04-26] MEDS ORDERED: Haloperidol INJ IV/IM* 5 MG/ML AMP IV SLOW PU ONE (14:47)
[2019-04-26] MEDS: Haloperidol INJ IV/IM* 5 MG/ML AMP IV SLOW PU PRN (20:11)
[2019-04-27] MEDS: NS 0.9% 1000 ML** 1,000 ML IV SCH (01:42)
[2019-04-27] MEDS: Haloperidol INJ IV/IM* 5 MG/ML AMP IV SLOW PU PRN (01:50)
[2019-04-27 10:49] VITALS: BP 133/71
[2019-04-27] MEDS ORDERED: Cyanocobalamin TAB* 500 MCG PO SCH (11:00)
[2019-04-27] MEDS ORDERED: Levothyroxine TAB* 75 MCG TAB PO SCH (11:00)
[2019-04-27] MEDS ORDERED: Aspirin 81 mg CHEW TAB* 81 MG TAB.CHEW PO SCH (11:00)
--- NOTE | 2019-04-27 11:51 | PN ---
Progress Note - Progress Note Date of Service: 04/27/19 - Progress note Note: Pt seen and examined at bedside this amorning. Pts son at bedside. O/n events noted. Pt required small dose of haldol last night, has been calm this am Active Medications Generic Name Dose Route Start Last Admin Trade Name Freq PRN Reason Stop Dose Admin Aspirin 81 mg 04/27/19 11:00 Aspirin 81 Mg Chew Tab* PO DAILY GERRI Carvedilol 6.25 mg 04/27/19 12:00 Coreg Tab* PO 1200,2100 GERRI Cyanocobalamin 1,000 mcg 04/27/19 11:00 Vitamin B12 Tab* PO DAILY GERRI Haloperidol Lactate 5 mg 04/26/19 19:58 04/27/19 01:50 Haldol Inj Iv/Im* IV SLOW PU 5 mg Q6H PRN Administration AGITATION Levothyroxine Sodium 75 mcg 04/27/19 11:00 Synthroid Tab* PO DAILY@0600 COUNT INCLUDES THE [facility] Vital Signs Temp Pulse Resp BP Pulse Ox 99 F 54 13 133/71 94 04/27/19 04:00 04/27/19 11:00 04/27/19 11:00 04/27/19 08:44 04/27/19 11:00 O/E: Elderly f in NAD HEENT: PERRLA, no JVD Lungs: Good a/e b/l CVS: S1, S2+ Abd: Soft, BS+ Ext: NOrmal ROM Neuro: Speech is fluent. No focal deficits Skin: No rash Laboratory Results - last 24 hr 04/26/19 13:06 POC Glucose (mg/dL) 118 H A/P: 88-year-old female who has advanced dementia 10+ years, dyslipidemia, and hypertension who presented to [facility] for sudden onset word finding difficulty, noted to have aphasia. She had an elevated NIHSS of 9. After verbal consent from family, she received IV tPA around 7:40 am 04/26/19. Her blood glucose had improved to the 100's. She has improved neurologically. Left MCA stroke vs. hypoglycemia. Pt s/p tPA, symptoms resolved. Rpt CT brain this am showed no acute changes/bleeding Pt doing well other than episodes of confusion last night Speech improved, no other focal neuro deficits Pt`s BP improved, hemodynamically stable Pt able to tolerate po Delacruz was removed, pt ambulated in [facility] Neuro f/u appreciated Pt to be d/c home Family at bedside
[2019-04-27] MEDS ORDERED: Carvedilol TAB* 6.25 MG PO SCH (12:00)
--- NOTE | 2019-04-27 12:01 | DS ---
DISCHARGE SUMMARY: DATE OF ADMISSION: 04/26/19 DATE OF DISCHARGE: 04/27/19 REASON FOR ADMISSION: Expressive aphasia, confusion. DISCHARGE DIAGNOSES: 1. Cerebrovascular accident 2. Hypoglycemia. 3. Confusion secondary to baseline dementia. OTHER SECONDARY DIAGNOSES: 1. Severe dementia 2. Coronary artery disease, nonobstructive from last cath. 3. Cardiomyopathy with ejection fraction 30% to 35%. 4. History of syncopal episodes in the past. 5. History of premature atrial contractions, premature ventricular contractions , paroxysmal supraventricular tachycardia. 6. Left bundle-branch block. MEDICATIONS AT THE TIME OF DISCHARGE: The patient being discharged with home medications, no new medications started on this hospitalization. 1. Vitamin B12 300 mcg daily. 2. Simvastatin 20 mg p.o. daily. 3. Evista. 4. Raloxifene 60 mg p.o. daily. 5. Losartan 100 mg p.o. daily. 6. Levothyroxine 75 mcg daily. 8. Vitamin B12 1000 mcg daily. 9. Carvedilol 6.25 mg at noon and 9 p.m. 10. Aspirin 81 mg daily. TESTING DONE DURING THIS HOSPITALIZATION: The patient with no significant anemia noted on the labs. Platelets were low, which is baseline for the patient. The patient noted to have creatinine at 1.24, slightly increased from her baseline, likely secondary to dehydration. The patient was noted to have low glucose; in ED, had 42, subsequently improved to 118. The patient had mildly low calcium at 8.5, total protein was low at 5.2, AST was slightly elevated at 45. CT brain on admission showed motion artifact, but did not reveal any evidence of acute changes. Repeat CT done this morning showed no bleeding post tPA. Chest x-ray on admission did not reveal any acute abnormality. BRIEF SUMMARY OF RECENT HOSPITALIZATION: 88-year-old female with history of dementia, cardiac history with systolic CHF, cardiac arrhythmia, admitted with slurred speech and confusion, was brought into the emergency room on 04/26/19 at 5:50 a.m. She was found to be her normal self prior to that, so it was thought to be an acute change for her. The patient was confused and agitated. She was also noted to have low blood sugar on arrival at 42. The patient's blood glucose improved after applesauce. The patient received tPA after ED consulted [facility]. The patient had quick improvement in speech and did not have any other neurological findings post tPA. The patient was monitored in the ICU post tPA for 24 hours. The patient had periods of confusion and agitation yesterday, which is likely secondary to baseline dementia and acute delirium from being in the hospital. She has had significant improvement with Haldol. The patient has been doing well and is at her baseline this morning. Family is at bedside. The patient's son is requesting to have the patient discharged home today. She lives in [facility]. The patient otherwise has been hemodynamically stable this morning. She had episodes of hypotension last night, which are likely secondary to dehydration and possibly from the Haldol effect. She has been saturating well on room air. She is bradycardic, which she is at her baseline. Delacruz catheter was discontinued. The patient was able to ambulate without any issues. Neurology, Dr. Adam has followed up on the patient. He is agreeable with discharging the patient. She will go home on home medications, which include aspirin and statin. Given significant dementia and concern for falls, she might not be a candidate for Plavix. No further testing will be done as inpatient for evaluation of her CVA. She will follow up with Neurology and primary care as outpatient for further testing. TIME SPENT: Total time spent in the discharge included 40 minutes. [id number]/[facility] #: [id number] ODILIA
--- NOTE | 2019-04-27 14:00 | PN ---
Subjective Date of Service: 04/27/19 Length of Stay: 1 Days Neurology is following for a transient episode of aphasia. Interval History: She looks marvelous today. She was relieved when the urinary catheter was removed. She walked around the hallway. She is pleasantly demented. She denied any headaches or visual disturbance. She asked her son at bedside to stay near her and not leave her alone. She was hypotensive overnight but asymptomatic. Repeat CT head without contrast completed on 04/27/2019: no acute intracranial abnormality. Review of Systems: Denied CP, SOB, or palpitations. Objective Active Medications: Aspirin (Aspirin 81 Mg Chew Tab*) 81 mg PO DAILY [facility] Last Admin: 04/27/19 12:01 Dose: 81 mg Carvedilol (Coreg Tab*) 6.25 mg PO 1200,2100 [facility] Last Admin: 04/27/19 12:01 Dose: 6.25 mg Cyanocobalamin (Vitamin B12 Tab*) 1,000 mcg PO DAILY [facility] Last Admin: 04/27/19 12:01 Dose: 1,000 mcg Haloperidol Lactate (Haldol Inj Iv/Im*) 5 mg IV SLOW PU Q6H PRN PRN Reason: AGITATION Last Admin: 04/27/19 01:50 Dose: 5 mg Levothyroxine Sodium (Synthroid Tab*) 75 mcg PO DAILY@0600 [facility] Last Admin: 04/27/19 12:01 Dose: 75 mcg Vital Signs 04/27/19 04/27/19 04/27/19 08:44 09:00 09:15 Temperature Pulse Rate 53 53 Respiratory 21 18 19 Rate Blood Pressure 133/71 (mmHg) O2 Sat by Pulse 94 87 Oximetry 04/27/19 04/27/19 10:00 11:00 Temperature Pulse Rate 59 54 Respiratory 12 13 Rate Blood Pressure (mmHg) O2 Sat by Pulse 93 94 Oximetry Intake and Output Last 24 Hours 04/25/19 04/26/19 04/27/19 04/28/19 06:59 06:59 06:59 06:59 Intake Total 1852 Output Total 1250 Balance 602 Weight 107 lb 8 oz 106 lb 3.075 oz Intake: IV Fluids 1602 NS (0.9%) 1602 Oral 250 Output: Delacruz 1250 Oxygen Devices in Use Now: None Neurology Exam: General: Well nourished, well developed, and in no acute distress. Frail and demented. HEENT: Normocephelic/atraumatic, sclera anicteric, mucous membranes moist Neck: Supple Chest: Clear to auscultation bilaterally Cardiovascular: Regular rate and rhythm without murmurs, rubs, gallops Extremities: No clubbing, cyanosis, or edema Neurological Findings: Awake, alert, and oriented to self and son but not place or time. Speech: fluent without dysarthria, repetition intact Cranial Nerve: PERRL, EOM intact, VFF, no nystagmus, face symmetric bilaterally , facial sensation intact Motor: s/s throughout, proximal and distal extremities x4 tone/bulk normal Sensation: intact to LT/PP bilaterally upper and lower extremities Finger to nose, rapid alternating movements intact without tremor, no dysdiadochokinesia Gait: not assessed as she walked minutes before my assessment Result Diagrams: 04/26/19 06:56 04/26/19 06:56 Microbiology and Other Data: Microbiology 04/26/19 09:20 Nasal Screen MRSA (PCR) - Final Nasal Mrsa Not Detected Assessment/Plan Mrs. Vane Hickey is an 88-year-old female who has advanced dementia 10+ years, dyslipidemia, and hypertension who [place] [facility] [place] onset word finding difficulty. The patient's neurological exam was notable for severe aphasia. She had an elevated NIHSS of 9. With the patient's family approval, she received IV tPA per the recommendation of Dr. Mcclure at . Few hours later , the patient was able to ambulate and speak without any difficulties. Her blood glucose was initially in the low 40's and had improved to the 100's after apple sauce. 1. Sudden onset aphasia that resolved within hours after her glucose was within normal range and following IV tPA therapy. Differential diagnosis includes left MCA TIA vs symptomatic hypoglycemia. I suspect the latter diagnosis. The family would like to minimize any further testing and would like the patient to be discharged to [facility] today. I informed them about getting an MRI of the brain and an ECHO, but they decline further testing appropriately trying to prevent the patient from developing hospital related delirium. I agree with their decision and she will be discharged from the ICU today. 2. Advanced dementia Recommendations: - Monitor her blood glucose and blood pressure regularly (daily). Keep her hydrated. Continue aspirin therapy. Continue simvastatin. Discussed fall precautions. No need for further neurological work-up as an inpatient. Follow- up with neurology as an outpatient in 6 weeks. Follow-up with your PCP in 4-5 days.
== END 2019-04-27 14:00 | disposition home or self-care (01) | DRG 62 ==
LOC: ED 06:36 → ICU 08:41
PROVIDERS: ADMIT Internal Medicine; ATTEND Internal Medicine
DX: I63.9 Cerebral infarction, unspecified (principal); I42.9 Cardiomyopathy, unspecified; I50.22 Chronic systolic (congestive) heart failure; F05 Delirium due to known physiological condition; E16.2 Hypoglycemia, unspecified; F03.90 Unspecified dementia, unspecified severity, without behavioral disturbance, psychotic disturbance, mood disturbance, and anxiety; I25.10 Atherosclerotic heart disease of native coronary artery without angina pectoris; I44.7 Left bundle-branch block, unspecified; E86.0 Dehydration; R47.81 Slurred speech; I95.9 Hypotension, unspecified; R00.1 Bradycardia, unspecified; R47.01 Aphasia; E03.9 Hypothyroidism, unspecified; I11.0 Hypertensive heart disease with heart failure; M32.9 Systemic lupus erythematosus, unspecified; Z66 Do not resuscitate; R29.709 NIHSS score 9; M81.0 Age-related osteoporosis without current pathological fracture; E78.5 Hyperlipidemia, unspecified; R40.2142 Coma scale, eyes open, spontaneous, at arrival to emergency department; R40.2352 Coma scale, best motor response, localizes pain, at arrival to emergency department; R40.2232 Coma scale, best verbal response, inappropriate words, at arrival to emergency department; Z79.82 Long term (current) use of aspirin; Z79.899 Other long term (current) drug therapy; Z79.890 Hormone replacement therapy; Z88.5 Allergy status to narcotic agent; Z87.891 Personal history of nicotine dependence
CPT/HCPCS: 36415; 70450; 71045; 80053; 80061; 81003; 81015; 83605; 84443; 84484; 85025; 85610; 85730; 87641; 93005; 99284; A9270-GY; J1630; J2997

== ENCOUNTER 2019-04-28 15:29 | Emergency (ER) | payer MEDICARE ==
[2019-04-28 15:47] VITALS: BP 125/72
== END 2019-04-28 16:30 | disposition left against medical advice (07) ==
LOC: ED 15:29
DX: M25.561 Pain in right knee (principal); Z53.21 Procedure and treatment not carried out due to patient leaving prior to being seen by health care provider

== ENCOUNTER 2019-06-06 20:59 | Emergency (ER) | payer MEDICARE ==
--- NOTE | 2019-06-06 21:22 | ED ---
Syncope/Near Syncope - HPI Summary HPI Summary: Patient is an 88 y/o F presenting to [facility] via EMS from nursing facility for reported syncopal episode. It is reported that the patient was using the bathroom when the episode occurred. Staff that was present was able to lower the patient to the ground. No injuries or illness reported. Patient denies pain in the room. She is unsure why she is in the hospital and states that she wants to go home. She is alert and oriented x1, level 5 caveat secondary to dementia. Home medications and allergies are reviewed. - History Of Current Complaint Chief Complaint: EDSyncope Time Seen by Provider: 06/06/19 21:08 Hx Obtained From: EMS Hx From Patient Unobtainable Due To: Dementia Onset/Duration: Resolved - not syncopal currently Timing: Intermittent Episode Lasting Context: Witnessed Activity At Onset: Other - using bathroom Associated Head Trauma: No Associated Signs And Symptoms: Negative - Allergies/Home Medications Allergies/Adverse Reactions: Allergies Allergy/AdvReac Type Severity Reaction Status Date / Time propoxyphene [From Darvon] Allergy Unknown Unknown Verified 06/06/19 21:03 Reaction Details Home Medications: Home Medications Cholecalciferol TAB* [Vitamin D TAB*] 2,000 units PO DAILY 06/06/19 [History Confirmed 06/06/19] Furosemide [Lasix] 20 mg PO DAILY 06/06/19 [History Confirmed 06/06/19] LORazepam [Ativan 0.5 MG TAB] 0.5 mg PO DAILY PRN 06/06/19 [History Confirmed ] Melatonin 5 mg PO DAILY 06/06/19 [History Confirmed 06/06/19] Quetiapine Fumarate [Seroquel 50 mg tab] 25 mg PO QPM 06/06/19 [History Confirmed 06/06/19] PMH/Surg Hx/FS Hx/Imm Hx Cardiovascular History: Reports: Hx Coronary Artery Disease, Other Cardiovascular Problems/Disorders - low ejection fraction Denies: Hx Myocardial Infarction, Hx Pacemaker/ICD Musculoskeletal History: Reports: Hx Osteoporosis Sensory History: Denies: Hx Contacts or Glasses, Hx Hearing Aid Opthamlomology History: Denies: Hx Contacts or Glasses Neurological History: Reports: Hx Dementia Psychiatric History: Reports: Other Psychiatric Issues/Disorders - Hx of dementia Denies: Hx Panic Disorder - Surgical History Surgery Procedure, Year, and Place: TONSILS, RIGHT KNEE 1982, CATARACTS 2002, SPOKE WITH ODILON MICHAUD Hx Anesthesia Reactions: No Infectious Disease History: No Infectious Disease History: Denies: Traveled Outside the [place] in Last 30 Days - Family History Known Family History: Positive: Other - Breast CA -mom - Social History Alcohol Use: None Alcohol Amount: RECOVERING ALCOHOLIC SINCE 1981 Hx Substance Use: No Substance Use Type: Reports: None Hx Tobacco Use: Yes Smoking Status (MU): Former Smoker Review of Systems - ROS Summary Review of Systems Summary: Home Medications Medication Instructions Recorded Confirmed Type Aspirin 81 mg CHEW TAB* 81 mg PO DAILY 04/20/15 03/05/17 History Carvedilol TAB* [Coreg TAB*] 6.25 mg PO 1200,2100 04/20/15 03/05/17 History Cyanocobalamin TAB* [Vitamin B12 1,000 mcg PO DAILY 04/20/15 03/05/17 History TAB*] Levothyroxine Sodium [Synthroid] 75 mcg PO DAILY 04/20/15 03/05/17 History Losartan Potassium 100 mg PO 1200 04/20/15 03/05/17 History Raloxifene (NF) [Evista(NF)] 60 mg PO 1200 04/20/15 03/05/17 History Simvastatin TAB(NF) [Zocor 20 MG 20 mg PO 1200 04/20/15 03/05/17 History (NF)] Vitamin B 12 300 mcg PO DAILY 03/06/17 03/06/17 History level 5 caveat secondary to dementia Constitutional: Other - negative - pain, injuries, illnesses Positive: Syncope All Other Systems Reviewed And Are Negative: No - Comments Additional Review of Systems Comments: level 5 caveat secondary to dementia Physical Exam - Summary Physical Exam Summary: General: Well-developed, Elderly and thin female. No acute distress. HEENT: Normocephalic, Atraumatic. Eyes: Conjuctiva normal, PERRL. Oropharynx: Clear, mucous membranes moist, (-) exudates. Neck: Soft, FROM, (-) lymphadenopathy, (-) thyromegaly, (-) JVD. Cardiovascular: Normal sinus rhythm, (-) murmur. Lungs: Clear to auscultation bilaterally (-) wheezes, (-) rales, (-) rhonchi. Abdomen: Soft, non-tender, non-distended, (-) organomegaly, normal bowel sounds. Back: (-) CVA tenderness Extremities: No edema. Skin: Warm, dry, (-) rash. Neuro: Alert and oriented x1, history is confused, poor memory level 5 caveat secondary to dementia, GCS 13. Psychiatric: Uncooperative, limited exam secondary to level 5 caveat Triage Information Reviewed: Yes Vital Signs On Initial Exam: Initial Vitals Temp Pulse Resp BP Pulse Ox 97.3 F 59 18 104/53 97 06/06/19 21:02 06/06/19 21:02 06/06/19 21:02 06/06/19 21:02 06/06/19 21:02 Vital Signs Reviewed: Yes - [place] Coma Scale Best Eye Response: 4 - Spontaneous Best Motor Response: 5 - Purposeful Movement Best Verbal Response: 4 - Confused Coma Scale Total: 13 Procedures - Sedation Patient Received Moderate/Deep Sedation with Procedure: No Diagnostics - Vital Signs Vital Signs Temp Pulse Resp BP Pulse Ox 06/06/19 21:02 97.3 F 59 18 104/53 97 - Laboratory Result Diagrams: 06/06/19 21:52 06/06/19 21:52 Lab Statement: Any lab studies that have been ordered have been reviewed, and results considered in the medical decision making process. - Radiology CXR Radiology Interpretation Completed By: ED Physician Summary of Radiographic Findings: No infiltrate or pleural effusion, pending official report. - CT BRAIN CT CT Interpretation Completed By: Radiologist Summary of CT Findings: IMPRESSION: No acute intracranial abnormality. THIS REPORT WAS REVIEWED BY ED PHYSICIAN. - EKG 2154 Cardiac Rate: NL - rate of 76 BPM EKG Rhythm: Sinus Rhythm Summary of EKG Findings: EKG showed NSR with rate of 76 BPM, no STEMI. EKG has been reviewed and interpreted by ED physician. Course/Dx Course Of Treatment: 88 year old female sent from [facility] by ambulance after near syncopal event. she was on the toilet and was standing up when suddnely she started falling and staff caught her. patient has known dementia and is oriented to one. no head trauma. exam WNL. workup essentially negative. patient received fluids, Seroquel 25 mg PO and Ativan 0.5 mg PO. patient discharged back to [facility]. follow up with PCP, follow up sooner for any worsening symptoms. - Diagnoses Provider Diagnoses: Near syncope Discharge ED - Sign-Out/Discharge Documenting (check all that apply): Patient Departure - discharge - Discharge Plan Condition: Stable Disposition: HOME Patient Education Materials: Near Syncope (ED) Referrals: Jony Carrillo MD [Primary Care Provider] - 3 Days Additional Instructions: PLEASE RETURN TO ED FOR ANY NEW OR WORSENING SYMPTOMS. PLEASE FOLLOW UP WITH YOUR PRIMARY CARE PHYSICIAN WITHIN THREE DAYS. - Billing Disposition and Condition Condition: STABLE Disposition: Home - Attestation Statements Document Initiated by Vijaya: Yes Documenting Scribe: GE NEVAREZ Provider For Whom Vijaya is Documenting (Include Credential): SANDRA BAI MD Scribe Attestation: GE Branch, scribed for SANDRA BAI MD on 06/07/19 at 0546. Scribe Documentation Reviewed: Yes Provider Attestation: The documentation as recorded by the GE ervin accurately reflects the service I personally performed and the decisions made by me, SANDRA BAI MD Status of Scribe Document: Viewed
[2019-06-06] MEDS: NS 0.9% 1000 ML** 1,000 ML IV ONE (21:47)
[2019-06-06 22:18] LABS: ABS Eosinophils 0.2 10^3/ul (0-0.6); ABS Lymphocytes 1.7 10^3/ul (1.0-4.8); ABS Monocytes 0.6 10^3/ul (0-0.8); ABS Neutrophils 2.8 10^3/ul (1.5-7.7); Eosinophil % 3.9 %; Hematocrit 31 % (35-47); Hemoglobin 10.2 g/dL (12.0-16.0); Lymphocyte % 32.1 %; Mean Corpuscular HGB Conc 33 g/dL (31-36); Mean Corpuscular Hemoglobin 33 pg (27-31); Mean Corpuscular Volume 100 fL (80-97); Mean Platelet Volume 8.7 fL (7.4-10.4); Nucleated Red Blood Cells % 0.1; Platelet Count 164 10^3/uL (150-450); Red Blood Count 3.08 10^6 /uL (3.70-4.87); Red Cell Distribution Width 15 % (10-15); White Blood Count 5.4 10^3/uL (3.5-10.8)
[2019-06-06 22:27] LABS: INR 1.16 (0.82-1.09)
[2019-06-06 22:30] LABS: Albumin 3.1 g/dL (3.2-5.2); Albumin/Globulin Ratio 1.6 (1-3); BUN/Creatinine Ratio 17.9 (8-20); EGFR African American 67.3 (>60); EGFR Non-African American 55.6 (>60); Globulin 1.9 g/dL (2-4); Magnesium 2.3 mg/dL (1.9-2.7); Total Bilirubin 0.4 mg/dL (0.2-1.0)
[2019-06-06 22:32] LABS: Troponin I 0.01 ng/mL (<0.03)
[2019-06-06 22:56] LABS: TSH (Thyroid Stimulating Horm) 6.42 mcIU/mL (0.34-5.60)
[2019-06-06 23:28] LABS: Urine Appearance Clear; Urine Bilirubin Negative (Negative); Urine Blood Negative (Negative); Urine Color Yellow; Urine Glucose Negative (Negative); Urine Ketones Negative (Negative); Urine Nitrite Negative (Negative); Urine Protein Negative (Negative); Urine Urobilinogen Negative (Negative)
[2019-06-07] MEDS: QUEtiapine TAB* 25 MG PO ONE (00:06)
[2019-06-07 00:50] VITALS: BP 109/91
[2019-06-07] MEDS: LORazepam TAB(*) 1 MG PO ONE (01:03)
== END 2019-06-07 00:25 | disposition home or self-care (01) ==
LOC: ED 20:59
DX: R55 Syncope and collapse (principal); I25.10 Atherosclerotic heart disease of native coronary artery without angina pectoris; Z87.891 Personal history of nicotine dependence; Z79.899 Other long term (current) drug therapy; Z88.5 Allergy status to narcotic agent
CPT/HCPCS: 36415; 70450; 71045; 80053; 81003; 83605; 83735; 84443; 84484; 85025; 85610; 93005; 96360; 96361; 99284; A9270-GY

== ENCOUNTER 2019-06-15 01:02 | Emergency (ER) | payer MEDICARE ==
[2019-06-15 01:45] LABS: ABS Lymphocytes 0.2 10^3/ul (1.0-4.8); ABS Monocytes 0.1 10^3/ul (0-0.8); Eosinophil % 0.3 %; Hematocrit 36 % (35-47); Hemoglobin 12.1 g/dL (12.0-16.0); Lymphocyte % 3.3 %; Mean Corpuscular HGB Conc 34 g/dL (31-36); Mean Corpuscular Hemoglobin 33 pg (27-31); Mean Corpuscular Volume 98 fL (80-97); Mean Platelet Volume 8.3 fL (7.4-10.4); Platelet Count 172 10^3/uL (150-450); Red Blood Count 3.68 10^6 /uL (3.70-4.87); Red Cell Distribution Width 14 % (10-15); White Blood Count 7.4 10^3/uL (3.5-10.8)
[2019-06-15 01:53] LABS: Activated Partial Thrombo Time 30.7 seconds (26.0-38.0); INR 1.06 (0.82-1.09)
--- NOTE | 2019-06-15 01:55 | ED ---
HPI Febrile Illness - HPI Summary HPI Summary: Pt is an 88 y/o F presenting to the ED with a chief complaint of a febrile illness. LEVEL 5 CAVEAT: Full hx and physical limited d/t dementia. Pt denies pain, nausea, abd pain, or shortness of breath. She reports shes cold. She was sent here because of her fever that has not broken. - History of Current Complaint Chief Complaint: EDNauseaVomitDiarrh Time Seen by Provider: 06/15/19 01:23 Hx Obtained From: Patient Hx From Patient Unobtainable Due To: Dementia Onset/Duration: Started Hours Ago, Still Present Timing: Constant, Lasting Hours Initial Severity: Mild Current Severity: None Pain Intensity: 0 Pain Scale Used: 0-10 Numeric Aggravating Factors: Nothing Alleviating Factors: Nothing Associated Signs and Symptoms: Chills - Additional Pertinent History Primary Care Physician: [id number] - Allergy/Home Medications Allergies/Adverse Reactions: Allergies Allergy/AdvReac Type Severity Reaction Status Date / Time propoxyphene [From Darvon] Allergy Unknown Unknown Verified 06/06/19 21:03 Reaction Details PMH/Surg Hx/FS Hx/Imm Hx Previously Healthy: Yes Cardiovascular History: Reports: Hx Coronary Artery Disease, Other Cardiovascular Problems/Disorders - low ejection fraction Denies: Hx Myocardial Infarction, Hx Pacemaker/ICD Musculoskeletal History: Reports: Hx Osteoporosis Sensory History: Denies: Hx Contacts or Glasses, Hx Hearing Aid Opthamlomology History: Denies: Hx Contacts or Glasses Neurological History: Reports: Hx Dementia Psychiatric History: Reports: Other Psychiatric Issues/Disorders - Hx of dementia Denies: Hx Panic Disorder - Surgical History Surgery Procedure, Year, and Place: TONSILS, RIGHT KNEE 1982, CATARACTS 2002, SPOKE WITH ODILON MICHAUD Hx Anesthesia Reactions: No Infectious Disease History: No Infectious Disease History: Denies: Traveled Outside the [place] in Last 30 Days - Family History Known Family History: Positive: Other - Breast CA -mom - Social History Alcohol Use: None Alcohol Amount: RECOVERING ALCOHOLIC SINCE 1981 Hx Substance Use: No Substance Use Type: Reports: None Hx Tobacco Use: Yes Smoking Status (MU): Former Smoker Review of Systems - ROS Summary Review of Systems Summary: LEVEL 5 CAVEAT: Full hx and physical limited d/t dementia Positive: Fever. Negative: Chills Negative: Shortness Of Breath Negative: Abdominal Pain, Nausea Negative: Myalgia All Other Systems Reviewed And Are Negative: No Physical Exam - Summary Physical Exam Summary: Appearance: Well-appearing, Well-nourished, lying in bed comfortably Skin: Warm, dry, no obvious rash Eyes: sclera anicteric, no conjunctival pallor ENT: mucous membranes moist, pharynx appears normal Neck: Supple, nontender Respiratory: Clear to auscultation, no signs of respiratory distress Cardiovascular: Normal S1, S2. No murmurs. Normal distal pulses in tibial and radial bilaterally. Abdomen: Soft, nontender, normal active bowel sounds present Musculoskeletal: Normal, Strength/ROM Intact Neurological: Awake and alert, mentation is somewhat confused, speech is fluent and appropriate Psychiatric: affect is normal, does not appear anxious or depressed Triage Information Reviewed: Yes Vital Signs On Initial Exam: Initial Vitals Temp Pulse Resp BP Pulse Ox 100 F 86 16 132/55 91 06/15/19 01:12 06/15/19 01:12 06/15/19 01:12 06/15/19 01:12 06/15/19 01:12 Vital Signs Reviewed: Yes Completion Of Physical Exam Limited Due To: Dementia, Level 5 Procedures - Sedation Patient Received Moderate/Deep Sedation with Procedure: No Diagnostics - Vital Signs Vital Signs Temp Pulse Resp BP Pulse Ox 06/15/19 01:43 82 14 121/61 92 06/15/19 01:13 86 132/55 92 06/15/19 01:12 100 F 86 16 132/55 94 - Laboratory Lab Results: Lab Results 06/15/19 Range/Units 01:36 WBC 7.4 (3.5-10.8) 10^3/uL RBC 3.68 L (3.70-4.87) 10^6 /uL Hgb 12.1 (12.0-16.0) g/dL Hct 36 (35-47) % MCV 98 H (80-97) fL MCH 33 H (27-31) pg MCHC 34 (31-36) g/dL RDW 14 (10-15) % Plt Count 172 (150-450) 10^3/uL MPV 8.3 (7.4-10.4) fL Neut % (Auto) 94.5 % Lymph % (Auto) 3.3 % Isabela % (Auto) 1.5 % Eos % (Auto) 0.3 % Baso % (Auto) 0.4 % Absolute Neuts (auto) 7.0 (1.5-7.7) 10^3/ul Absolute Lymphs (auto) 0.2 L (1.0-4.8) 10^3/ul Absolute Monos (auto) 0.1 (0-0.8) 10^3/ul Absolute Eos (auto) 0.0 (0-0.6) 10^3/ul Absolute Basos (auto) 0.0 (0-0.2) 10^3/ul Absolute Nucleated RBC 0.0 10^3/ul Nucleated RBC % 0.0 Result Diagrams: 06/15/19 01:36 06/15/19 01:36 Lab Statement: Any lab studies that have been ordered have been reviewed, and results considered in the medical decision making process. - Radiology CXR Radiology Interpretation Completed By: ED Physician Summary of Radiographic Findings: No acute process. Pending official radiology report. Course/Dx - Course Course Of Treatment: Pt is an 88 y/o F presenting to the ED with a chief complaint of a febrile illness. LEVEL 5 CAVEAT: Full hx and physical limited d/ t dementia. Pt denies pain, nausea, abd pain, or shortness of breath. She reports shes cold. She was sent here because of her fever that has not broken. On exam, pt is somewhat confused. CXR shows no acute process, pending official radiology report. Pt negative for Influenza A&B. Pt will be d/c'ed with dx of fever and vomiting. Pt agreeable with this plan. - Diagnoses Provider Diagnoses: Fever, Vomiting Discharge ED - Sign-Out/Discharge Documenting (check all that apply): Patient Departure - Discharge Plan Condition: Good Disposition: HOME Patient Education Materials: Fever in Adults (ED) Referrals: Jony Carrillo MD [Primary Care Provider] - Additional Instructions: Mrs. Michaud's workup here was negative for signs of sepsis or serious infection. Please keep watch on her for any further problems or deterioration. - Billing Disposition and Condition Condition: GOOD Disposition: Home - Attestation Statements Document Initiated by Scribe: Yes Documenting Scribe: Shelli Noriega Provider For Whom Scribe is Documenting (Include Credential): Bernardo Butts MD. Scribe Attestation: Shelli Branch, scribed for Bernardo Butts MD. on 06/19/19 at 0455. Scribe Documentation Reviewed: Yes Provider Attestation: The documentation as recorded by the scribe, Shelli Noriega accurately reflects the service I personally performed and the decisions made by me, Bernardo Butts MD. Status of Scribe Document: Viewed
[2019-06-15 02:02] LABS: Albumin 3.3 g/dL (3.2-5.2); Albumin/Globulin Ratio 1.4 (1-3); BUN/Creatinine Ratio 21.6 (8-20); EGFR African American 73.5 (>60); EGFR Non-African American 60.8 (>60); Globulin 2.4 g/dL (2-4); Total Bilirubin 0.8 mg/dL (0.2-1.0); Total Protein 5.7 g/dL (6.4-8.9)
[2019-06-15 02:04] LABS: Troponin I 0.01 ng/mL (<0.03)
[2019-06-15 02:25] LABS: Urine Appearance Clear; Urine Bilirubin Negative (Negative); Urine Blood Negative (Negative); Urine Color Yellow; Urine Glucose Negative (Negative); Urine Ketones Trace (Negative); Urine Nitrite Negative (Negative); Urine Protein Negative (Negative); Urine Specific Gravity 1.018 (1.010-1.030); Urine Urobilinogen Negative (Negative)
[2019-06-15 02:30] LABS: Influenza A Molecular NEGATIVE (Negative); Influenza B Molecular NEGATIVE (Negative)
[2019-06-15 05:04] VITALS: BP 131/72
== END 2019-06-15 05:04 | disposition home or self-care (01) ==
LOC: ED 01:02
DX: R50.9 Fever, unspecified (principal); R11.10 Vomiting, unspecified; I25.10 Atherosclerotic heart disease of native coronary artery without angina pectoris; Z87.891 Personal history of nicotine dependence
CPT/HCPCS: 36415; 71046; 80053; 81003; 83605; 84484; 85025; 85610; 85730; 87040; 99283

== ENCOUNTER 2019-07-02 18:42 | Emergency (ER) | payer MEDICARE ==
--- NOTE | 2019-07-02 19:19 | ED ---
Head Injury - HPI Summary HPI Summary: This pt is an 88 Y/O F brought to [facility] by ambulance for a fall that occurred after 1700. EMS states that the pt reportedly fell on her face and complained of visual issues. She has abrasions to her forehead and nose. She is currently a level 5 caveat due to her Hx of Alzheimer and dementia. She states no aggravating or alleviating factors. She has a SHx of previous smoking. - History Of Current Complaint Chief Complaint: EDFall Stated Complaint: FALL PER EMS Time Seen by Provider: 07/02/19 19:10 Hx Obtained From: EMS Hx From Patient Unobtainable Due To: Dementia Mechanism Of Injury: Fall From A Standing Position Onset/Duration: Started Hours Ago Severity Currently: None Pain Intensity: 0 Pain Scale Used: 0-10 Numeric Location of Head Injury: Frontal Location: Discrete At: - L side of her forehead and her cheek Aggravating Factor(s): Other: - nothing Alleviating Factor(s): Other: - nothing Associated Signs And Symptoms: Visual Changes - Allergies/Home Medications Allergies/Adverse Reactions: Allergies Allergy/AdvReac Type Severity Reaction Status Date / Time propoxyphene [From Darvon] Allergy Unknown Unknown Verified 06/29/19 07:35 Reaction Details PMH/Surg Hx/FS Hx/Imm Hx Previously Healthy: Yes Cardiovascular History: Reports: Hx Coronary Artery Disease, Other Cardiovascular Problems/Disorders - low ejection fraction Denies: Hx Myocardial Infarction, Hx Pacemaker/ICD Musculoskeletal History: Reports: Hx Osteoporosis Sensory History: Denies: Hx Contacts or Glasses, Hx Hearing Aid Opthamlomology History: Denies: Hx Contacts or Glasses Neurological History: Reports: Hx Dementia Psychiatric History: Reports: Other Psychiatric Issues/Disorders - Hx of dementia Denies: Hx Panic Disorder - Cancer History Hx Chemotherapy: No Hx Radiation Therapy: No - Surgical History Surgical History: Yes Surgery Procedure, Year, and Place: TONSILS, RIGHT KNEE 1982, CATARACTS 2002, SPOKE WITH ODILON MICHAUD Hx Anesthesia Reactions: No - Immunization History Immunizations Up to Date: Yes Infectious Disease History: No Infectious Disease History: Denies: Traveled Outside the [place] in Last 30 Days - Family History Known Family History: Positive: Other - Breast CA -mom - Social History Occupation: Retired Lives: At [facility] Alcohol Use: None Alcohol Amount: RECOVERING ALCOHOLIC SINCE 1981 Hx Substance Use: No Substance Use Type: Reports: None Hx Tobacco Use: Yes Smoking Status (MU): Former Smoker Review of Systems - ROS Summary Review of Systems Summary: A FULL ROS IS UNOBTAINABLE DUE TO THE PT'S HISTORY OF DEMENTIA. Positive: Other - states visual issues but did not elaborate All Other Systems Reviewed And Are Negative: No Physical Exam - Summary Physical Exam Summary: Appearance: Well-appearing, Well-nourished, lying in bed comfortably Skin: Warm, dry, no obvious rash, Fresh ecchymosis on the L side of her forehead and her cheek. Old contusions to her orbital and nose. Eyes: sclera anicteric, no conjunctival pallor ENT: mucous membranes moist, pharynx appears normal Neck: Supple, nontender Respiratory: Clear to auscultation, no signs of respiratory distress Cardiovascular: Normal S1, S2. No murmurs. Normal distal pulses in tibial and radial bilaterally. Abdomen: Soft, nontender, normal active bowel sounds present Musculoskeletal: Normal, Strength/ROM Intact Neurological: awake and alert, mentation is confused but otherwise normal, speech is fluent and appropriate Psychiatric: affect is normal, does not appear anxious or depressed GCS: 15 A FULL PE IS UNOBTAINABLE DUE TO THE PT'S HX OF DEMENTIA. Triage Information Reviewed: Yes Vital Signs On Initial Exam: Initial Vitals Temp Pulse Resp BP Pulse Ox 98.0 F 80 14 110/56 98 07/02/19 18:55 07/02/19 18:55 07/02/19 18:55 07/02/19 18:55 07/02/19 18:55 Vital Signs Reviewed: Yes Completion Of Physical Exam Limited Due To: Dementia - [place] Coma Scale Best Eye Response: 4 - Spontaneous Best Motor Response: 6 - Obeys Commands Best Verbal Response: 5 - Oriented Coma Scale Total: 15 Procedures - Sedation Patient Received Moderate/Deep Sedation with Procedure: No Diagnostics - Vital Signs Vital Signs Temp Pulse Resp BP Pulse Ox 07/02/19 18:55 98.0 F 80 14 110/56 98 - Laboratory Lab Statement: Any lab studies that have been ordered have been reviewed, and results considered in the medical decision making process. - CT Brain CT CT Interpretation Completed By: Radiologist Summary of CT Findings: 1. There has been little change from 06/29/2019. No acute interval intracranial. process is identified. 2. Moderate chronic ischemic white matter change and mild atrophy. 3. Minimal right maxillary sinus disease. ED physician has reviewed this report. Head Injury Course/Dx Course Of Treatment: This pt is an 88 Y/O F brought to [facility] by ambulance for a fall that occurred after 1700. EMS states that the pt reportedly fell on her face and complained of visual issues. She has abrasions to her forehead and nose. She is currently a level 5 caveat due to her Hx of alzheimers and dementia. Her PE found that she has fresh ecchymosis on the L side of her forehead and her cheek. Old contusions to her orbital and nose. Her GCS is a 15. Her Brain CT found the followin. There has been little change from . No acute interval intracranial. process is identified. 2. Moderate chronic ischemic white matter change and mild atrophy. 3. Minimal right maxillary sinus disease. She will be discharged home with a Dx of a fall and facial contusions. - Diagnoses Provider Diagnoses: Fall, Facial contusion Discharge ED - Sign-Out/Discharge Documenting (check all that apply): Patient Departure - discharge - Discharge Plan Condition: Fair Disposition: HOME Patient Education Materials: Head Injury (ED) Referrals: Jony Carrillo MD [Primary Care Provider] - If Needed Additional Instructions: PLEASE FOLLOW UP WITH YOUR PRIMARY CARE PHYSICIAN IF NEEDED. RETURN TO THE EMERGENCY DEPARTMENT FOR ANY NEW OR WORSENING SYMPTOMS. - Billing Disposition and Condition Condition: FAIR Disposition: Home - Attestation Statements Document Initiated by Vijaya: Yes Documenting Scribe: Mahendra Byers Provider For Whom Vijaya is Documenting (Include Credential): Bernardo Butts MD Scribe Attestation: Mahendra Branch, scribed for Bernardo Butts MD on 07/03/19 at 1846. Scribe Documentation Reviewed: Yes Provider Attestation: The documentation as recorded by the Mahendra ervin accurately reflects the service I personally performed and the decisions made by me, Bernardo Butts MD Status of Scribe Document: Viewed
[2019-07-02 21:09] VITALS: BP 107/58
== END 2019-07-02 21:08 | disposition home or self-care (01) ==
LOC: ED 18:42
DX: S00.83XA Contusion of other part of head, initial encounter (principal); S00.81XA Abrasion of other part of head, initial encounter; S00.31XA Abrasion of nose, initial encounter; W19.XXXA Unspecified fall, initial encounter; Y92.9 Unspecified place or not applicable; J32.0 Chronic maxillary sinusitis; G30.9 Alzheimer's disease, unspecified; F02.80 Dementia in other diseases classified elsewhere, unspecified severity, without behavioral disturbance, psychotic disturbance, mood disturbance, and anxiety; I25.10 Atherosclerotic heart disease of native coronary artery without angina pectoris; Z88.5 Allergy status to narcotic agent; Z87.891 Personal history of nicotine dependence
CPT/HCPCS: 70450; 99282

== ENCOUNTER 2019-07-03 11:17 | Emergency (ER) | payer MEDICARE ==
--- NOTE | 2019-07-03 11:31 | ED ---
Adult Trauma - HPI Summary HPI Summary: Patient is a 88 y/o F presenting to [facility] via EMS from [facility] for visual changes and left-sided rib pain after fall. Fall occurred last evening, patient was evaluated at [facility]. Brain CT was done and was negative. Patient was sent back to [facility]. This morning, staff reports that the patient has experienced visual changes and states that the patient has been running into hendrickson/objects with her walker. In the room, patient also has complaints of left lateral rib pain. Full history is unable to be obtained from the patient secondary to dementia, patient is a level 5 caveat. Home medications and allergies are reviewed. - History of Current Complaint Stated Complaint: PAIN,VISION ISSUES AFTER FALL PER EMS Time Seen by Provider: 07/03/19 11:28 Hx Obtained From: EMS Hx From Patient Unobtainable Due To: Dementia - Full history is unable to be obtained from the patient secondary to dementia, patient is a level 5 caveat. Mechanism of Injury: Fall Restraints: None Onset/Duration: Still Present Onset of Pain: Prior to Arrival Pain Scale Used: 0-10 Numeric Location: Head, Other - left-sided ribs Associated Signs & Symptoms: Positive: Other: - positive - visual changes, head injury, left-sided rib pain - Additional Pertinent History Primary Care Physician: NBA - Allergy/Home Medications Allergies/Adverse Reactions: Allergies Allergy/AdvReac Type Severity Reaction Status Date / Time propoxyphene [From Darvon] Allergy Unknown Unknown Verified 06/29/19 07:35 Reaction Details PMH/Surg Hx/FS Hx/Imm Hx Cardiovascular History: Reports: Hx Coronary Artery Disease, Other Cardiovascular Problems/Disorders - low ejection fraction Denies: Hx Myocardial Infarction, Hx Pacemaker/ICD Musculoskeletal History: Reports: Hx Osteoporosis Sensory History: Denies: Hx Contacts or Glasses, Hx Hearing Aid Opthamlomology History: Denies: Hx Contacts or Glasses Neurological History: Reports: Hx Dementia Psychiatric History: Reports: Other Psychiatric Issues/Disorders - Hx of dementia Denies: Hx Panic Disorder - Cancer History Hx Chemotherapy: No Hx Radiation Therapy: No - Surgical History Surgery Procedure, Year, and Place: TONSILS, RIGHT KNEE 1982, CATARACTS 2002, SPOKE WITH ODILON MICHAUD Hx Anesthesia Reactions: No - Family History Known Family History: Positive: Other - Breast CA -mom - Social History Alcohol Use: None Alcohol Amount: RECOVERING ALCOHOLIC SINCE 1981 Hx Substance Use: No Substance Use Type: Reports: None Hx Tobacco Use: Yes Smoking Status (MU): Former Smoker Review of Systems - ROS Summary Review of Systems Summary: Full history is unable to be obtained from the patient secondary to dementia, patient is a level 5 caveat. Eyes: Other - positive - visual changes Musculoskeletal: Other - positive - fall, left-sided rib pain Neurological: Other - positive - head injury All Other Systems Reviewed And Are Negative: No - Comments Additional Review of Systems Comments: Full history is unable to be obtained from the patient secondary to dementia, patient is a level 5 caveat. Physical Exam - Summary Physical Exam Summary: Constitutional: Well-developed, Well-nourished, Alert. (-) Distressed Skin: Warm, Dry HENT: Normocephalic; Atraumatic Eyes: Conjunctiva normal Neck: Musculoskeletal ROM normal neck. (-) JVD, (-) Stridor, (-) Tracheal deviation Cardio: Rhythm regular, rate normal, Heart sounds normal; Intact distal pulses; Radial pulses are 2+ and symmetric. (-) Murmur Pulmonary/Chest wall: Effort normal. (-) Respiratory distress, (-) Wheezes, (-) Rales Abd: Soft, (-) tenderness, (-) Distension, (-) Guarding, (-) Rebound Musculoskeletal: (-) Edema Lymph: (-) Cervical adenopathy Neuro: Patient is a level 5 caveat secondary to dementia, GCS 15. Triage Information Reviewed: Yes Vital Signs Reviewed: Yes Completion Of Physical Exam Limited Due To: Dementia, Level 5 - [place] Coma Scale Best Eye Response: 4 - Spontaneous Best Motor Response: 6 - Obeys Commands Best Verbal Response: 5 - Oriented Coma Scale Total: 15 Procedures - Sedation Patient Received Moderate/Deep Sedation with Procedure: No Diagnostics - Laboratory Lab Statement: Any lab studies that have been ordered have been reviewed, and results considered in the medical decision making process. - Radiology RIBS W/ CXR Radiology Interpretation Completed By: Radiologist Summary of Radiographic Findings: RIBS W/ CXR IMPRESSION: #. No rib fracture or pneumothorax evident. #. Emphysematous change and new mild elevation of the LEFT hemidiaphragm with associated. basilar atelectasis. #. Cardiomegaly without evidence for pulmonary edema. THIS REPORT WAS REVIEWED BY ED PHYSICIAN. - CT BRAIN CT CT Interpretation Completed By: Radiologist Summary of CT Findings: BRAIN CT. IMPRESSION: 1. NO EVIDENCE FOR ACUTE INTRACRANIAL ABNORMALITY. 2. ATROPHY AND FINDINGS CONSISTENT WITH MODERATE TO SEVERE CHRONIC SMALL VESSEL ISCHEMIC. CHANGES. THIS REPORT WAS REVIEWED BY ED PHYSICIAN. Adult Trauma Course/Dx - Course Course Of Treatment: Patient is here with possible altered mental status and rib pain following a fall last night. Patient seen here where a workup was performed. Patient had a repeat CT head which was negative for any acute changes. Patient had x-rays of her ribs which showed no fracture. Patient was ambulatory and walked on the ED multiple times with a tach. Patient is also demented but was able to be redirected. - Diagnoses Provider Diagnoses: Fall, Dementia, Altered mental status Discharge ED - Sign-Out/Discharge Documenting (check all that apply): Patient Departure - discharge - Discharge Plan Condition: Stable Disposition: HOME Patient Education Materials: Dementia (ED), Fall Prevention for Older Adults ( ED), Altered Mental Status (ED) Referrals: Jony Carrillo MD [Primary Care Provider] - 3 Days Additional Instructions: PLEASE FOLLOW UP WITH YOUR PRIMARY CARE PHYSICIAN WITHIN THREE DAYS. TAKE TYLENOL FOR PAIN. PLEASE RETURN TO ED FOR ANY CHANGES IN MENTAL BASELINE OR ANY OTHER CONCERNING SYMPTOMS. - Billing Disposition and Condition Condition: STABLE Disposition: Home - Attestation Statements Document Initiated by Vijaya: Yes Documenting Scribe: GE NEVAREZ Provider For Whom Vijaya is Documenting (Include Credential): ANNABELLE JIMENEZ MD Scribe Attestation: GE Branch, scribed for ANNABLELE JIMENEZ MD on 07/03/19 at 2126. Scribe Documentation Reviewed: Yes Provider Attestation: The documentation as recorded by the GE ervin accurately reflects the service I personally performed and the decisions made by , ANNABELLE JIMENEZ MD Status of Scribe Document: Viewed
[2019-07-03] MEDS ORDERED: Acetaminophen TAB* 325 MG PO ONE (11:37)
[2019-07-03 13:57] VITALS: BP 105/73
== END 2019-07-03 14:01 | disposition home or self-care (01) ==
LOC: ED 11:17
DX: F03.90 Unspecified dementia, unspecified severity, without behavioral disturbance, psychotic disturbance, mood disturbance, and anxiety (principal); R41.82 Altered mental status, unspecified; W19.XXXA Unspecified fall, initial encounter; Y92.099 Unspecified place in other non-institutional residence as the place of occurrence of the external cause; I25.10 Atherosclerotic heart disease of native coronary artery without angina pectoris; Z87.891 Personal history of nicotine dependence; Z88.5 Allergy status to narcotic agent
CPT/HCPCS: 70450; 99282; A9270-GY

== ENCOUNTER 2019-07-03 20:39 | Inpatient (IN) | payer MEDICARE ==
[2019-07-03] MEDS ORDERED: NS 0.9% 1000 ML** 1,000 ML IV ONE (20:53)
[2019-07-03] MEDS ORDERED: Haloperidol INJ IV/IM* 5 MG/ML AMP IV SLOW PU ONE (21:03)
--- NOTE | 2019-07-03 21:04 | ED ---
Altered Mental Status - HPI Summary HPI Summary: 88 year old F brought in by EMS to [facility] from [place] memory unit complains of altered mental status since today 07/03/2019. Patient seen in the ED yesterday 07/02/2019 for fall and head injury, had Brain CT done which was negative, was discharged back to [place]. Patient seen in the ED earlier today 07/03/2019 for visual changes and was discharged back to [place]. Patient presents to the ED now for altered mental status which was noticed by half-way staff. Patient states she has been feeling better since the fall. LEVEL 5 CAVEAT: HPI is limited due to PMHx dementia. - History Of Current Complaint Chief Complaint: EDAltMentalStatus Stated Complaint: HYPERTENSION PER EMS Time Seen by Provider: 07/03/19 20:54 Hx Obtained From: Medical Records, Other: - nurse triage note Onset/Duration: Still Present Timing: Constant - Allergies/Home Medications Allergies/Adverse Reactions: Allergies Allergy/AdvReac Type Severity Reaction Status Date / Time propoxyphene [From Darvon] Allergy Unknown Unknown Verified 06/29/19 07:35 Reaction Details Home Medications: Home Medications Acetaminophen [Acetaminophen Extra Strength] 500 mg PO Q6HR PRN MDD 2000 mg 09/16 [History Confirmed 07/03/19] Carvedilol TAB* [Coreg TAB*] 6.25 mg PO BID 07/03/19 [History Confirmed 07/03/19 ] Cyanocobalamin (Vitamin B-12) [Vitamin B-12] 100 mcg PO DAILY 07/03/19 [History Confirmed 07/03/19] LORazepam TAB(*) [Ativan 0.5 MG TAB (*)] 0.5 mg PO 1400 07/03/19 [History Confirmed 07/04/19] LORazepam TAB(*) [Ativan 0.5 MG TAB (*)] 0.5 mg PO Q4H PRN 07/03/19 [History Confirmed 07/03/19] Levothyroxine TAB* [Synthroid TAB*] 50 mcg PO DAILY 07/03/19 [History Confirmed 07/03/19] QUEtiapine TAB* [Seroquel 25 MG TAB*] 50 mg PO DAILY PRN 07/03/19 [History Confirmed 07/03/19] PMH/Surg Hx/FS Hx/Imm Hx Cardiovascular History: Reports: Hx Coronary Artery Disease, Other Cardiovascular Problems/Disorders - low ejection fraction Denies: Hx Myocardial Infarction, Hx Pacemaker/ICD Musculoskeletal History: Reports: Hx Osteoporosis Sensory History: Denies: Hx Contacts or Glasses, Hx Hearing Aid Opthamlomology History: Denies: Hx Contacts or Glasses Neurological History: Reports: Hx Dementia Psychiatric History: Reports: Other Psychiatric Issues/Disorders - Hx of dementia Denies: Hx Panic Disorder - Cancer History Hx Chemotherapy: No Hx Radiation Therapy: No - Surgical History Surgery Procedure, Year, and Place: TONSILS, RIGHT KNEE 1982, CATARACTS 2002, SPOKE WITH ODILON MICHAUD Hx Anesthesia Reactions: No Infectious Disease History: No Infectious Disease History: Denies: Traveled Outside the [place] in Last 30 Days - Family History Known Family History: Positive: Other - Breast CA -mom - Social History Alcohol Use: None Alcohol Amount: RECOVERING ALCOHOLIC SINCE 1981 Hx Substance Use: No Substance Use Type: Reports: None Hx Tobacco Use: Yes Smoking Status (MU): Former Smoker Review of Systems Negative: Fever Neurological: Other - AMS All Other Systems Reviewed And Are Negative: Yes Physical Exam - Summary Physical Exam Summary: Appearance: Elderly, ill-appearing woman lying in stretcher awake and alert and mildly agitated Skin: Warm, dry, no obvious rash Eyes: sclera anicteric, no conjunctival pallor ENT: mucous membranes moist, pharynx appears normal Neck: Supple, nontender Respiratory: Clear to auscultation, no signs of respiratory distress Cardiovascular: Normal S1, S2. No murmurs. Normal distal pulses in tibial and radial bilaterally. Abdomen: Soft, nontender, normal active bowel sounds present Musculoskeletal: Normal, Strength/ROM Intact Neurological: Awake and alert but disoriented and confused and somewhat agitated Psychiatric: affect is normal, does not appear anxious or depressed Triage Information Reviewed: Yes Vital Signs On Initial Exam: Initial Vitals Temp Pulse Resp BP Pulse Ox 98.2 F 79 18 106/55 94 07/03/19 20:40 07/03/19 20:40 07/03/19 20:40 07/03/19 20:40 07/03/19 20:40 Vital Signs Reviewed: Yes Procedures - Sedation Patient Received Moderate/Deep Sedation with Procedure: No Diagnostics - Vital Signs Vital Signs Temp Pulse Resp BP Pulse Ox 07/03/19 20:40 98.2 F 79 18 106/55 94 - Laboratory Result Diagrams: 07/03/19 21:31 07/03/19 21:31 Lab Statement: Any lab studies that have been ordered have been reviewed, and results considered in the medical decision making process. - EKG 2117 Cardiac Rate: NL - 79 BPM EKG Rhythm: Sinus Rhythm Summary of EKG Findings: Sinus rhythm 79 BPM. Atrial premature complex. Left bundle branch block. ED physician has reviewed and interpreted this EKG Re-Evaluation - Re-Evaluation First Eval Re-Evaluation Time: 23:29 Comment: patient is still agitated and trying to get out of bed per nurse. will order Ativan Altered Mental Statu Course/Dx - Course Course Of Treatment: 88 y/o F brought in by EMS from [facility] complains of altered mental status since today 07/03/2019. Patient seen in the ED yesterday 07/02/2019 for fall and head injury. Patient seen in the ED earlier today 07/03/2019 for visual changes. Patient presents to the ED now for altered mental status. Upon exam, the patient is an elderly, ill-appearing woman lying in stretcher awake and alert but disoriented and confused and somewhat agitated. An EKG shows sinus rhythm 79 BPM, atrial premature complex, left bundle branch block. Bloodwork results with no significant abnormalities except for RBC 3.40, Hgb 11.1, Hct 33, platelets 147, absolute monos 0.9, potassium 3.4, chloride 100, creatinine 1.45, glucose 126, calcium 8.2, total bilirubin 1.10, total protein 5.8. Urinalysis results with no significant abnormalities except for specific gravity 1.004, blood 1+, leukocyte esterase 2+ , WBC 3+, squamous epithelial cells, bacteria 1+. Patient has a UTI. In the ED course, the patient was given Haldol, normal saline fluids, Ativan. Spoke with Dr. Garcia hospitalist who agrees to admit patient. - Diagnoses Provider Diagnoses: Urinary tract infection, Metabolic encephalopathy - Provider Notifications Discussed Care Of Patient With: Nicolasa Garcia Time Discussed With Above Provider: 00:57 Instructed by Provider To: Admit As Inpatient Discharge ED - Sign-Out/Discharge Documenting (check all that apply): Patient Departure - Discharge Plan Condition: Stable Disposition: ADMITTED TO [facility] - Billing Disposition and Condition Condition: STABLE Disposition: Admitted to [facility] - Attestation Statements Document Initiated by Vijaya: Yes Documenting Scribe: Gabbie Pratt Provider For Whom Vijaya is Documenting (Include Credential): Bernardo Butts MD Scriberin Attestation: I, Gabbie Pratt, scribed for Bernardo Butts MD on 07/04/19 at 0540. Scribe Documentation Reviewed: Yes Provider Attestation: The documentation as recorded by the miguelibeGabbie accurately reflects the service I personally performed and the decisions made by me, Bernardo Butts MD Status of Scribe Document: Viewed
[2019-07-03] MEDS ORDERED: NS 0.9% IV ONE (21:05)
[2019-07-03 21:37] LABS: ABS Basophils 0.1 10^3/ul (0-0.2); ABS Lymphocytes 2.1 10^3/ul (1.0-4.8); ABS Monocytes 0.9 10^3/ul (0-0.8); ABS Neutrophils 5.8 10^3/ul (1.5-7.7); Eosinophil % 0.4 %; Hematocrit 33 % (35-47); Hemoglobin 11.1 g/dL (12.0-16.0); Mean Corpuscular HGB Conc 34 g/dL (31-36); Mean Corpuscular Hemoglobin 33 pg (27-31); Mean Corpuscular Volume 96 fL (80-97); Mean Platelet Volume 8.9 fL (7.4-10.4); Platelet Count 147 10^3/uL (150-450); Red Cell Distribution Width 13 % (10-15); White Blood Count 8.9 10^3/uL (3.5-10.8)
[2019-07-03 21:54] LABS: Albumin 3.2 g/dL (3.2-5.2); Albumin/Globulin Ratio 1.2 (1-3); BUN/Creatinine Ratio 16.6 (8-20); Calcium 8.2 mg/dL (8.6-10.3); EGFR African American 41.3 (>60); EGFR Non-African American 34.2 (>60); Globulin 2.6 g/dL (2-4); Potassium 3.4 mmol/L (3.5-5.0); Total Bilirubin 1.1 mg/dL (0.2-1.0); Total Protein 5.8 g/dL (6.4-8.9)
[2019-07-03 21:56] LABS: Troponin I 0.01 ng/mL (<0.03)
[2019-07-03 22:31] LABS: TSH (Thyroid Stimulating Horm) 5.8 mcIU/mL (0.34-5.60)
[2019-07-03] MEDS ORDERED: LORazepam INJ* 2 MG/ML 1 ML VIAL IV PUSH ONE (23:29)
[2019-07-03] MEDS ORDERED: Lorazepam PYXIS KEY PRN (23:29)
[2019-07-04 00:07] LABS: Urine Appearance Cloudy; Urine Bilirubin Negative (Negative); Urine Blood 1+ (Negative); Urine Color Yellow; Urine Glucose Negative (Negative); Urine Ketones Negative (Negative); Urine Nitrite Negative (Negative); Urine Protein Negative (Negative); Urine Specific Gravity 1.004 (1.010-1.030); Urine Urobilinogen Negative (Negative)
[2019-07-04 00:16] LABS: Urine Bacteria 1+ (Absent); Urine Red Blood Cell Trace(0-2/hpf) (Absent); Urine Squamous Epithelial Cell Present (Absent); Urine White Blood Cell 3+(>20/hpf) (Absent)
[2019-07-04] MEDS ORDERED: Lorazepam PYXIS KEY ONE (00:25)
[2019-07-04] MEDS ORDERED: cefTRIAXone(*) 1 GM in NS 0.9% 50 ML* 50 ML IVPB ONE (00:51)
[2019-07-04] MEDS ORDERED: QUEtiapine TAB* 25 MG PO PRN (01:40)
[2019-07-04] MEDS ORDERED: LORazepam TAB(*) 0.5 MG PO PRN (01:40)
[2019-07-04] MEDS ORDERED: NS 0.9% 1000 ML** 1,000 ML IV SCH (01:45)
[2019-07-04 02:46] LABS: Free T4 1.3 ng/dL (0.61-1.12)
--- NOTE | 2019-07-04 03:59 | HP ---
CC: Dr. Carrillo * HISTORY AND PHYSICAL: DATE OF ADMISSION: 07/04/19 PRIMARY CARE PHYSICIAN: Dr. Carrillo. CHIEF COMPLAINT: Increased confusion, weakness. HISTORY OF PRESENT ILLNESS: Ms. Hickey is an 88-year-old female who has a history of Alzheimer's, lives at [facility], who presents to the emergency room with increased confusion and weakness. The patient herself is unable to provide any history. In fact, she sleeps through my entire evaluation as she received 5 mg of Haldol and 2 mg of Ativan in the emergency room. The patient was seen in the emergency room on 07/02/19 after a fall. She presented back to the ER on the late morning of 07/03/19 with complaints of visual changes and left-sided rib pain after a fall. The patient was ultimately discharged back to [facility]. She returned to the ER on the evening of 07/03/19, this time for increased confusion and weakness. The patient was potentially hypotensive on the way to the ER. In the ER, she was noted to be agitated and she received Haldol and Ativan. PAST MEDICAL HISTORY: 1. Coronary artery disease. 2. Cardiomyopathy with an EF of 30% to 35%. 3. Alzheimer dementia. 4. Paroxysmal SVT. 5. Hypertension. 6. Hypothyroidism. 7. SLE. MEDICATIONS: 1. Vitamin B12 100 mcg p.o. daily. 2. Ativan 0.5 mg p.o. q.4 hours p.r.n. anxiety or agitation. 3. Tylenol extra strength 500 mg p.o. q.6 hours p.r.n. pain. 4. Coreg 6.25 mg p.o. b.i.d. 5. Vitamin D 2000 units p.o. daily. 6. Seroquel 50 mg p.o. daily p.r.n. anxiety/agitation. 7. Melatonin 5 mg p.o. q.h.s. p.r.n. insomnia. 8. Levothyroxine 50 mcg p.o. daily. 9. Lasix 20 mg p.o. daily. 10. Ativan 0.5 mg p.o. daily in the afternoon. ALLERGIES: PROPOXYPHENE. FAMILY HISTORY: Dad at the age of 88. Mom at the age of 97. Prior records did not indicate what they from, and the patient currently is not able to tell me. SOCIAL HISTORY: The patient reportedly has a prior history of alcohol abuse. It is unclear if she drinks now. She does not smoke. She is . Her and son are her healthcare proxies. REVIEW OF SYSTEMS: Unobtainable from the patient. PHYSICAL EXAMINATION GENERAL: The patient is a well-developed, elderly female, seen lying on her right side sleeping and in no acute distress. VITAL SIGNS: Blood pressure 98/48, pulse 90, respirations 20, temp 98.2, O2 sat 92% on 2 L of oxygen. HEENT: Unable to lift the patient's lids. Her pupils are tiny though they react to light. Oropharynx appears dry. There is no submandibular, cervical, or supraclavicular adenopathy. PULMONARY: Lungs are clear to auscultation bilaterally. CARDIAC: Normal S1, S2. Heart rate is mildly tachycardic. It is regular. I do not appreciate any murmurs. There is no lower extremity edema. ABDOMEN: Bowel sounds are present. Abdomen is soft, nontender, nondistended. MUSCULOSKELETAL: I do not see any obvious joint deformities. NEURO: Exam is unable to be performed as the patient is asleep. PSYCH: Exam is unable to be performed as the patient is asleep. SKIN: The patient has fresh abrasions noted to her face, most notably her forehead, nose, and cheeks. She has a deep purple bruise noted to the left posterior upper thigh tracking to the groin. DIAGNOSTIC STUDIES/LAB DATA: WBC 8.9, hemoglobin 11.1, hematocrit 33, platelets 147. Sodium 138, potassium 3.4, chloride 100, CO2 29, BUN 24, creatinine 1.45, glucose 126, lactic acid 1.2, calcium 8.2, bilirubin 1.1. AST 15, ALT 8, alk phos 50. Troponin 0.01, albumin 3.2, TSH 5.80. Urinalysis reveals cloudy urine with a specific gravity of 1.004, 1+ blood, 2+ leukocyte esterase, 3+ wbc, 1+ bacteria. EKG reveals normal sinus rhythm with a left bundle-branch block. ASSESSMENT AND PLAN: Ms. Hickey is an 88-year-old female with a history of dementia, coronary artery disease, systolic dysfunction, hypertension, and hypothyroidism, who presented to the emergency room with increased confusion and weakness and is being admitted for urinary tract infection leading to possible increased confusion and weakness. 1. Urinary tract infection. At this time, urinary tract infection seems most likely as her urinalysis is abnormal. She is afebrile and does not have a leukocytosis. She has been started on ceftriaxone and this will be continued. We will await the urine culture. 2. Weakness. The patient has been having multiple falls over the last couple of days. She has undergone CT scans of the brain without any acute findings. PT evaluation may be necessary. It is unclear if the patient will be able to return to [facility] in her current state. 3. Coronary artery disease with systolic dysfunction. We will continue her Coreg 6.25 mg twice daily. She is not on an aspirin. I am holding her Lasix as she appears to be volume depleted as evidenced by her creatinine being elevated at 1.45. This is almost 2 times her baseline. 4. Hypertension. Blood pressure is low normal at this time. We will monitor while she is sleeping. If she goes lower, we will bolus IV fluid as again I think she is volume depleted. 5. Hypothyroidism. The patient's TSH is elevated at 5.8. I have added on a free T4. She will continue on her current dose of Synthroid for now. Adjustments can be made when the free T4 is back. 6. Dementia. The patient is on a daily dose of Ativan as well as p.r.n. Ativan and Seroquel for anxiety and agitation. For now, I am holding these as the patient is sleeping very soundly after receiving Haldol and Ativan in the emergency room. 7. DVT prophylaxis: According to the Adult Thrombosis Prophylaxis Risk Factor Assessment Guide, the patient has a total risk factor score of 3, making her a high risk. Heparin 5000 units subcutaneous q.8 hours will be utilized as DVT prophylaxis. 8. Code status is DNR. TIME SPENT: Thirty minutes was spent on this admission. [id number]/[facility] #: [id number] ODILIA
[2019-07-04] MEDS: Heparin VIAL(*) 5000 UNITS/ML VIAL (FIVE THOUSAND) SUBCUT SCH ×3 (05:17→20:35)
[2019-07-04] MEDS: Levothyroxine TAB* 50 MCG TAB PO SCH (09:44)
--- NOTE | 2019-07-04 10:05 | PN ---
Subjective Date of Service: 07/04/19 Interval History: Pt evaluated at bedside, is lethargic pt will follow some commands. Pt was able to stick tongue out for neurological exam however patient would not roll to her back to complete exam. Pt does not answer questions. Pt does not respond verbally due to sedation. Family History: Unchanged from Admission Social History: Unchanged from Admission Past Medical History: Unchanged from Admission Objective Active Medications: Carvedilol (Coreg Tab*) 6.25 mg PO BID [facility] Heparin Sodium (Porcine) (Heparin Vial(*)) 5,000 units SUBCUT Q8HR [facility] Last Admin: 07/04/19 05:17 Dose: 5,000 units Sodium Chloride (Ns 0.9% 1000 Ml) 1,000 mls @ 75 mls/hr IV PER RATE [facility] Stop: 07/04/19 15:04 Last Admin: 07/04/19 03:16 Dose: 75 mls/hr Ceftriaxone Sodium 1 gm/ (Sodium Chloride) 50 mls @ 100 mls/hr IVPB Q24H [facility] Levothyroxine Sodium (Synthroid Tab*) 50 mcg PO DAILY@0600 [facility] Last Admin: 07/04/19 09:44 Dose: Not Given Lorazepam (Ativan Tab(*)) 0.5 mg PO Q4H PRN PRN Reason: AGITATION Quetiapine Fumarate (Seroquel Tab*) 50 mg PO DAILY PRN PRN Reason: AGITATION/ANXIETY Vital Signs - 8 hr 07/04/19 07/04/19 07/04/19 02:00 02:11 02:41 Temperature Pulse Rate 88 96 97 Respiratory Rate Blood Pressure 101/53 96/43 (mmHg) O2 Sat by Pulse 94 94 92 Oximetry 07/04/19 07/04/19 07/04/19 02:44 03:18 06:33 Temperature 97.9 F 97.5 F Pulse Rate 96 93 Respiratory 18 14 Rate Blood Pressure 101/53 110/41 (mmHg) O2 Sat by Pulse 94 96 96 Oximetry 07/04/19 06:58 Temperature 97.3 F Pulse Rate 66 Respiratory 16 Rate Blood Pressure 112/58 (mmHg) O2 Sat by Pulse 98 Oximetry Oxygen Devices in Use Now: None Appearance: Elderly female patient sleeping laying on right side. Does not appear to be in any distress. Will not open eyes. Eyes: No Scleral Icterus, PERRLA Ears/Nose/Mouth/Throat: Mucous Membranes Moist Neck: NL Appearance and Movements; NL JVP, Trachea Midline, No Thyroid Enlargement, Masses Respiratory: Symmetrical Chest Expansion and Respiratory Effort, Clear to Auscultation Cardiovascular: NL Sounds; No Murmurs; No JVD, No Edema Abdominal: NL Sounds; No Tenderness; No Distention, No Hepatosplenomegaly Extremities: No Edema Skin: - - abrasions noted to face healing well without errythema Neurological: - - unable to complete exam due to lethargy Result Diagrams: 07/03/19 21:31 07/04/19 11:25 Microbiology and Other Data: Microbiology 07/04/19 02:15 Nasal Screen MRSA (PCR) - Final Nasal Mrsa Not Detected Assess/Plan/Problems-Billing Assessment: Ms Hickey is an 88 female with hx of dementia, CAD, Cardiomyopathy, paroxysmal SVT , HTN, Hypothyroid and SLE, from assisted living facility presented to the ED with increased confusion and weakness and multiple falls this week. - Patient Problems (1) UTI (urinary tract infection) Comment: Treating with ceftriaxone (2) Encephalopathy acute Comment: Encephalopathy due to urinary tract infection. Altered mental status acute on top of dementia treating with seroquel at bedtime, as well as ativan PRN for aggitation. (3) Acute kidney injury Comment: Diuretics held until morning, pt also receiving IV normal saline (4) Hypothyroidism Comment: Appears that patient started on synthroid one month ago, although TSH remains elevated it is trending down in comparrison. (5) Hypertension Comment: Continue coreg as ordered (6) DVT prophylaxis Comment: Heparin Status and Disposition: Inpatient placing in PT/OT for STR placement
[2019-07-04] MEDS ORDERED: KCL 20 MEQ/100 ML IVPREMIX* 20 MEQ/100 ML BAG IV ONE (10:17)
[2019-07-04] MEDS: Carvedilol TAB* 6.25 MG PO SCH ×2 (10:25→20:31)
[2019-07-04 11:52] LABS: BUN/Creatinine Ratio 19.4 (8-20); Calcium 7.9 mg/dL (8.6-10.3); EGFR Non-African American 53.7 (>60); Potassium 3.6 mmol/L (3.5-5.0)
[2019-07-04] MEDS: cefTRIAXone(*) 1 GM in NS 0.9% 50 ML* 50 ML IVPB SCH (20:39)
[2019-07-04] MEDS ORDERED: QUEtiapine TAB* 25 MG PO SCH (21:00)
[2019-07-05] MEDS: Levothyroxine TAB* 50 MCG TAB PO SCH (05:29)
[2019-07-05] MEDS: Heparin VIAL(*) 5000 UNITS/ML VIAL (FIVE THOUSAND) SUBCUT SCH ×3 (05:32→20:49)
[2019-07-05] MEDS: Carvedilol TAB* 6.25 MG PO SCH ×2 (09:28→20:46)
[2019-07-05] MEDS: Furosemide TAB* 20 MG PO SCH (09:28)
--- NOTE | 2019-07-05 18:56 | PN ---
Subjective Date of Service: 07/05/19 Interval History: Ms. Hickey is laying in bed agitated. She is oriented to name only and is trying to get out of bed. She has a sitter in the room with her. She is unable to answer questions; unable to obtain ROS. Family History: Unchanged from Admission Social History: Unchanged from Admission Past Medical History: Unchanged from Admission Objective Active Medications: Carvedilol (Coreg Tab*) 6.25 mg PO BID [facility] Last Admin: 07/05/19 09:28 Dose: 6.25 mg Furosemide (Lasix Tab*) 20 mg PO DAILY [facility] Last Admin: 07/05/19 09:28 Dose: 20 mg Heparin Sodium (Porcine) (Heparin Vial(*)) 5,000 units SUBCUT Q8HR [facility] Last Admin: 07/05/19 15:08 Dose: 5,000 units Ceftriaxone Sodium 1 gm/ (Sodium Chloride) 50 mls @ 100 mls/hr IVPB Q24H [facility] Last Admin: 07/04/19 20:39 Dose: 100 mls/hr Levothyroxine Sodium (Synthroid Tab*) 50 mcg PO DAILY@0600 [facility] Last Admin: 07/05/19 05:29 Dose: 50 mcg Lorazepam (Ativan Tab(*)) 0.5 mg PO Q4H PRN PRN Reason: AGITATION Last Admin: 07/05/19 12:07 Dose: 0.5 mg Quetiapine Fumarate (Seroquel Tab*) 25 mg PO BEDTIME [facility] Vital Signs: Temp Pulse Resp BP Pulse Ox 97.9 F 95 18 134/65 100 07/05/19 15:55 07/05/19 15:55 07/05/19 15:55 07/05/19 15:55 07/05/19 15:55 Oxygen Devices in Use Now: Nasal Cannula Appearance: Ms. Hickey is an elderly white woman who is laying in bed, attempting to get out of bed. She is agitated and does not respond to questioning. Eyes: No Scleral Icterus, PERRLA Neck: NL Appearance and Movements; NL JVP, Trachea Midline Respiratory: Symmetrical Chest Expansion and Respiratory Effort, Clear to Auscultation - does not follow instructions for deep breathing Cardiovascular: NL Sounds; No Murmurs; No JVD, RRR, No Edema Abdominal: NL Sounds; No Tenderness; No Distention, No Hepatosplenomegaly Extremities: No Edema Neurological: - - Alert; oriented to name only Result Diagrams: 07/03/19 21:31 07/04/19 11:25 Microbiology and Other Data: Microbiology 07/04/19 02:15 Nasal Screen MRSA (PCR) - Final Nasal Mrsa Not Detected Assess/Plan/Problems-Billing Assessment: Ms Hickey is an 88 female with hx of dementia, CAD, Cardiomyopathy, paroxysmal SVT , HTN, Hypothyroid and SLE, from assisted living facility presented to the ED with increased confusion and weakness and multiple falls this week. - Patient Problems (1) UTI (urinary tract infection) Comment: -no leukocytosis or fever -UA with 2+ LE, 1+ bacteria -UC with mixed daniel, recommending resubmission; will reattempt submission, although may not be useful as patient has been on antibiotics -continue ceftriaxone (2) Encephalopathy acute Comment: -encephalopathy likely mixed, due to UTI, medications -likely a component of dementia, as well (3) Hypertension Comment: -SBP 120-130's -continue carvedilol, furosemide as ordered (4) Hypothyroidism Comment: -appears that patient started on synthroid one month ago -although TSH remains elevated it is trending down in comparrison -recommend repeat TSH in 3-4 weeks (5) DVT prophylaxis Comment: -Heparin (6) DNR (do not resuscitate) Status and Disposition: Inpatient. Unable to return to [facility]. Awaiting placement.
[2019-07-05] MEDS: cefTRIAXone(*) 1 GM in NS 0.9% 50 ML* 50 ML IVPB SCH (20:50)
[2019-07-05] MEDS ORDERED: QUEtiapine TAB* 25 MG PO SCH (21:00)
[2019-07-06] MEDS: Heparin VIAL(*) 5000 UNITS/ML VIAL (FIVE THOUSAND) SUBCUT SCH ×3 (05:27→21:30)
[2019-07-06] MEDS: Levothyroxine TAB* 50 MCG TAB PO SCH (08:04)
[2019-07-06] MEDS: Carvedilol TAB* 6.25 MG PO SCH ×2 (08:50→19:14)
[2019-07-06] MEDS: Furosemide TAB* 20 MG PO SCH (08:50)
[2019-07-06] MEDS ORDERED: LORazepam TAB(*) 0.5 MG PO PRN (13:54)
--- NOTE | 2019-07-06 16:38 | PN ---
Subjective Date of Service: 07/06/19 Interval History: Ms. Hickey states she is feeling tired today. She is resting in bed and appears tired. Nursing reports that she was very active this morning. She has no complaints today. Family History: Unchanged from Admission Social History: Unchanged from Admission Past Medical History: Unchanged from Admission Objective Active Medications: Carvedilol (Coreg Tab*) 6.25 mg PO BID [facility] Last Admin: 07/06/19 08:50 Dose: 6.25 mg Furosemide (Lasix Tab*) 20 mg PO DAILY [facility] Last Admin: 07/06/19 08:50 Dose: 20 mg Heparin Sodium (Porcine) (Heparin Vial(*)) 5,000 units SUBCUT Q8HR [facility] Last Admin: 07/06/19 15:17 Dose: 5,000 units Ceftriaxone Sodium 1 gm/ (Sodium Chloride) 50 mls @ 100 mls/hr IVPB Q24H [facility] Last Admin: 07/05/19 20:50 Dose: 100 mls/hr Levothyroxine Sodium (Synthroid Tab*) 50 mcg PO DAILY@0600 [facility] Last Admin: 07/06/19 08:04 Dose: Not Given Lorazepam (Ativan Tab(*)) 0.5 mg PO Q6H PRN PRN Reason: AGITATION Quetiapine Fumarate (Seroquel Tab*) 50 mg PO BEDTIME [facility] Vital Signs: Temp Pulse Resp BP Pulse Ox 98.6 F 83 18 127/65 95 07/06/19 12:58 07/06/19 12:58 07/06/19 12:58 07/06/19 12:58 07/06/19 12:58 Oxygen Devices in Use Now: Nasal Cannula Appearance: Ms. Hickey is an elderly white woman who is laying in bed. She is appropriate, cooperative; she is sleepy and in no acute distress. Eyes: No Scleral Icterus, PERRLA Ears/Nose/Mouth/Throat: NL Teeth, Lips, Gums, Clear Oropharnyx, Mucous Membranes Moist Neck: NL Appearance and Movements; NL JVP, Trachea Midline Respiratory: Symmetrical Chest Expansion and Respiratory Effort, Clear to Auscultation Cardiovascular: NL Sounds; No Murmurs; No JVD, RRR, No Edema Abdominal: NL Sounds; No Tenderness; No Distention, No Hepatosplenomegaly - negative for CVA tenderness Extremities: No Edema, No Clubbing, Cyanosis Result Diagrams: 07/03/19 21:31 07/04/19 11:25 Microbiology and Other Data: Microbiology 07/04/19 02:15 Nasal Screen MRSA (PCR) - Final Nasal Mrsa Not Detected Assess/Plan/Problems-Billing Assessment: Ms Hickey is an 88 female with hx of dementia, CAD, Cardiomyopathy, paroxysmal SVT , HTN, Hypothyroid and SLE, from assisted living facility presented to the ED with increased confusion and weakness and multiple falls this week. - Patient Problems (1) UTI (urinary tract infection) Comment: -no leukocytosis or fever -UA with 2+ LE, 1+ bacteria -UC with mixed daniel, recommending resubmission; will reattempt submission, although may not be useful as patient has been on antibiotics -continue ceftriaxone (2) Encephalopathy acute Comment: -encephalopathy likely mixed, due to UTI, medications -likely a component of dementia, as well -appears to be improving (3) Hypertension Comment: -SBP 100-120's -continue carvedilol, furosemide as ordered (4) Hypothyroidism Comment: -appears that patient started on synthroid one month ago -although TSH remains elevated it is trending down in comparrison -recommend repeat TSH in 3-4 weeks (5) DVT prophylaxis Comment: -Heparin (6) DNR (do not resuscitate) Status and Disposition: Inpatient. Paresh will assess patient for return tomorrow.
[2019-07-06] MEDS ORDERED: QUEtiapine TAB* 25 MG PO SCH (21:00)
[2019-07-06] MEDS: cefTRIAXone(*) 1 GM in NS 0.9% 50 ML* 50 ML IVPB SCH (21:30)
[2019-07-07] MEDS: Heparin VIAL(*) 5000 UNITS/ML VIAL (FIVE THOUSAND) SUBCUT SCH ×2 (05:18→14:52)
[2019-07-07] MEDS: Levothyroxine TAB* 50 MCG TAB PO SCH (05:18)
[2019-07-07] MEDS: Furosemide TAB* 20 MG PO SCH (10:06)
[2019-07-07] MEDS: Carvedilol TAB* 6.25 MG PO SCH (10:06)
[2019-07-07 12:35] VITALS: BP 108/50
[2019-07-07] MEDS ORDERED: Docusate CAP* 100 MG PO PRN (13:19)
[2019-07-07] MEDS ORDERED: Senna TAB 8.6 mg* TAB PO PRN (13:19)
[2019-07-07] MEDS ORDERED: Magnesium Hydroxide LIQ* 30 ML UDC PO PRN (13:19)
[2019-07-07] MEDS ORDERED: cefTRIAXone(*) 1 GM in NS 0.9% 50 ML* 50 ML IVPB ONE (15:00)
--- NOTE | 2019-07-07 18:56 | DS ---
CC: Dr. Carrillo * DISCHARGE SUMMARY: DATE OF ADMISSION: 07/04/19 DATE OF DISCHARGE: 07/07/19 PRIMARY CARE PHYSICIAN: Dr. Carrillo. ATTENDING PHYSICIAN WHILE IN THE HOSPITAL: Dr. Juan Perez * (dictated by HI Blair). PRIMARY DIAGNOSIS: Acute on chronic altered mental status secondary to likely urinary tract infection. SECONDARY DIAGNOSES: 1. Coronary artery disease. 2. Cardiomyopathy with ejection fraction of 30% to 35%. 3. Dementia. 4. Paroxysmal supraventricular tachycardia. 5. Hypertension. 6. Hypothyroidism. 7. Lupus. PERTINENT LABS: Urinalysis with +1 blood, +2 leukocyte esterase, +3 white blood cell count, present squamous epithelial cells and +1 bacteria. Urine culture on 07/03/19 with mixed daniel and possible contamination. HISTORY OF PRESENT ILLNESS/HOSPITAL COURSE: Vane Hickey is an 88-year-old white female with past medical history significant for coronary artery disease, dementia, cardiomyopathy with an EF of 30% to 35%, hypertension and lupus who presents to the emergency department from [facility] where she lives due to increased confusion from her baseline and generalized weakness. The patient was additionally quite lethargic in the emergency department and was difficult to awaken for exam. The patient had a urinalysis, that demonstrated findings suggestive of UTI and she was started on empiric ceftriaxone. While taking this, the patient started to improve. Unfortunately, her urine culture was showing mixed daniel and a possible contamination and additional urine culture was unable to be collected prior to discharge. However , the patient was returned to her baseline mental status and was deemed appropriate to return to [facility] by an employee from [facility] visiting the hospital. At this point, she is appropriate to return to assisted living. She has been afebrile without leukocytosis during the entire hospital stay and she is without complaints today. PHYSICAL EXAMINATION: On the day of discharge. General: Thin, elderly white female, lying in the hospital bed appearing comfortable, in no acute distress. Eyes: PERRL and sclerae anicteric. Lungs: Clear to auscultation throughout. Cardio: Regular rate and rhythm without murmurs, rubs or gallops. Abdomen: Soft, nontender, and nondistended. No suprapubic tenderness. Extremities: No clubbing, cyanosis, or edema. Neuro: The patient is alert and oriented to self only. DISCHARGE PLAN: Activity: The patient may return to normal activity as tolerated. Diet: Heart healthy diet. The patient received a dose of ceftriaxone prior to being discharged from the hospital. She should start her Cefdinir tomorrow morning and she will be continuing this for 3 days. She should continue her antibiotic to completion. She should return to emergency department if she is experiencing fever or chills , flank pain, low back pain, abdominal pain, hematuria or other concerning symptoms. She should follow up with her primary care provider within a week or 10 days of discharge. DISCHARGE MEDICATIONS: New medication: 1. Cefdinir 30 mg p.o. b.i.d. x3 days. Continued home medications: 1. Ativan 0.5 mg p.o. at 1400. 2. Vitamin B12 100 mcg p.o. daily. 3. Ativan 0.5 mg p.o. q.4 hours p.r.n. agitation. 4. Tylenol 500 mg p.o. q.6 hours p.r.n. pain. 5. Carvedilol 6.25 mg p.o. b.i.d. 6. Vitamin D 2000 units p.o. daily. 7. Seroquel 50 mg p.o. daily p.r.n. agitation/anxiety. 8. Melatonin 5 mg p.o. at bedtime p.r.n. insomnia. 9. Synthroid 50 mcg p.o. daily. 10. Lasix 20 mg p.o. daily. CONDITION ON DISCHARGE: Stable. DISPOSITION: Home to [facility]. TIME SPENT: Approximately 35 minutes was spent on this discharge, approximately half this time was spent at bedside evaluating the patient and performing the physical exam. HI BLAIR [id number]/[facility] #: [id number] ODILIA
== END 2019-07-07 15:58 | disposition home or self-care (01) | DRG 690 ==
LOC: ED 20:39 → MEDTELE 07-04 01:32 → OBSVTOIN 07-05 11:00 → MEDTELE 07-05 15:48
PROVIDERS: ADMIT Hospitalist; ATTEND Internal Medicine
DX: N39.0 Urinary tract infection, site not specified (principal); I42.9 Cardiomyopathy, unspecified; I47.1 Supraventricular tachycardia; G93.49 Other encephalopathy; N17.9 Acute kidney failure, unspecified; I25.10 Atherosclerotic heart disease of native coronary artery without angina pectoris; F03.90 Unspecified dementia, unspecified severity, without behavioral disturbance, psychotic disturbance, mood disturbance, and anxiety; I10 Essential (primary) hypertension; E03.9 Hypothyroidism, unspecified; M32.9 Systemic lupus erythematosus, unspecified; Z66 Do not resuscitate; F10.11 Alcohol abuse, in remission; R53.1 Weakness; Z79.899 Other long term (current) drug therapy; Z88.8 Allergy status to other drugs, medicaments and biological substances
CPT/HCPCS: 36415; 80048; 80053; 81003; 81015; 83605; 84439; 84443; 84484; 85025; 87086; 87641; 93005; 96374; 96375; 99284; A9270-GY; G0378; J0696; J1630; J1644; J2060; J3480

== ENCOUNTER 2019-07-07 21:19 | Inpatient (IN) | payer MEDICARE ==
[2019-07-07] MEDS ORDERED: Morphine 4 MG/ML VIAL (1 ml) 4 MG/ML VIAL IV ONE (21:23)
[2019-07-07] MEDS ORDERED: NS 0.9% 1000 ML** 1,000 ML IV ONE (21:23)
--- NOTE | 2019-07-07 21:36 | ED ---
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 Patient is a patient at [facility]. She was walking when she fell and was found leaning up against the fall. Patient hit her head, but her primary complaint is the right hip pain, which she rates 10/10 in severity. Symptoms aggravated by touching and movement. Symptoms alleviated by nothing. Patient has a recent diagnosis of UTI. Patient denies fever. - History of Current Complaint Chief Complaint: EDHipPelvisInjury Stated Complaint: FALL/HIP PAIN PER EMS Hx Obtained From: Patient, EMS Mechanism of Injury: Fall Onset/Duration: Started Minutes Ago, Traumatic - Fall, Still Present Onset of Pain: Post Accident Onset Severity: Severe Current Severity: Severe Pain Intensity: 10 Pain Scale Used: 0-10 Numeric Location: Abdomen/Pelvis - Right hip Aggravating Factor(s): Movement, Other - Touching Alleviating Factor(s): Nothing Associated Signs & Symptoms: Negative: Fever - Additional Pertinent History Primary Care Physician: NBA - Allergy/Home Medications Allergies/Adverse Reactions: Allergies Allergy/AdvReac Type Severity Reaction Status Date / Time propoxyphene [From Darvon] Allergy Unknown Unknown Verified 07/07/19 21:44 Reaction Details PMH/Surg Hx/FS Hx/Imm Hx Cardiovascular History: Reports: Hx Coronary Artery Disease, Hx Hypertension, Other Cardiovascular Problems/Disorders - low ejection fraction Denies: Hx Myocardial Infarction, Hx Pacemaker/ICD Musculoskeletal History: Reports: Hx Osteoporosis Sensory History: Denies: Hx Contacts or Glasses, Hx Hearing Aid Opthamlomology History: Denies: Hx Contacts or Glasses Neurological History: Reports: Hx Dementia Psychiatric History: Reports: Other Psychiatric Issues/Disorders - Hx of dementia Denies: Hx Panic Disorder - Cancer History Hx Chemotherapy: No Hx Radiation Therapy: No - Surgical History Surgery Procedure, Year, and Place: TONSILS, RIGHT KNEE 1982, CATARACTS 2002, SPOKE WITH ODILON MICHAUD Hx Anesthesia Reactions: No Infectious Disease History: Denies: Traveled Outside the [place] in Last 30 Days - Family History Known Family History: Positive: Other - Breast CA -mom - Social History Alcohol Use: None Alcohol Amount: RECOVERING ALCOHOLIC SINCE 1981 Hx Substance Use: No Substance Use Type: Reports: None Hx Tobacco Use: Yes Smoking Status (MU): Former Smoker Review of Systems Negative: Fever Musculoskeletal: Other - Right hip pain All Other Systems Reviewed And Are Negative: Yes Physical Exam - Summary Physical Exam Summary: Appearance: Frail, elderly woman, lying in stretcher, holding right hip in pain Skin: Warm, dry, no obvious rash Head: healing contusions on forehead and nose, but no signs of any fresh trauma Eyes: sclera anicteric, no conjunctival pallor ENT: mucous membranes moist, pharynx appears normal Neck: Supple, nontender Respiratory: Clear to auscultation, no signs of respiratory distress Cardiovascular: Normal S1, S2. No murmurs. Normal distal pulses in tibial and radial bilaterally. Abdomen: Soft, nontender, normal active bowel sounds present Musculoskeletal: pain on movement of the right leg referred to the right groin and proximal thigh Neurological: A&Ox3, awake and alert, mentation is normal, speech is fluent and appropriate Psychiatric: affect is normal, does not appear anxious or depressed Triage Information Reviewed: Yes Vital Signs On Initial Exam: Initial Vitals Resp 10 07/07/19 21:26 Vital Signs Reviewed: Yes Procedures - Sedation Patient Received Moderate/Deep Sedation with Procedure: No Diagnostics - Laboratory Result Diagrams: 07/07/19 21:34 07/07/19 21:34 Lab Statement: Any lab studies that have been ordered have been reviewed, and results considered in the medical decision making process. - Radiology CXR Radiology Interpretation Completed By: ED Physician Summary of Radiographic Findings: No acute processes, mild cardiomegaly, pending official radiology report. Hip/pelvix XR Radiology Interpretation Completed By: ED Physician Summary of Radiographic Findings: Right-sided intertrochanteric hip fracture, pending official radiology report. - EKG 2131 Cardiac Rate: NL - 63 BPM EKG Rhythm: Sinus Rhythm Summary of EKG Findings: An EKG at 2131 revealed NSR at 63 BPM, PACs, LVH, LBBB , no STEMI. Dr. Butts has reviewed and interpreted this EKG. 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 In the ED course, patient received fluids and morphine. An EKG at 2131 revealed NSR at 63 BPM, PACs, LVH, LBBB, no STEMI. Blood work revealed RBC 3.54, Hgb 11.7, Hct 34, MCH 33, INR 1.21 , creatinine 1.22, glucose 144, total protein 6.2. CXR: No acute processes, mild cardiomegaly, pending official radiology report. Hip/pelvis XR: Right- sided intertrochanteric hip fracture, pending official radiology report. Discussed patient case with Dr. White, orthopedics, who agreed with admission to [facility]. At 2331, discussed patient case with Dr. Osorio, hospitalist, who accepted the patient for admission to [facility]. Patient will be admitted to [facility] with dx of right hip fracture. - Diagnoses Provider Diagnoses: Hip fracture, right - Physician Notifications Discussed Care Of Patient With: Wei White Time Discussed With Above Provider: 23:29 Instructed by Provider To: Other - Discussed patient case with Dr. White, orthopedics, who agreed with admission to [facility]. At 2331, discussed patient case with Dr. Osorio, hospitalist, who accepted the patient for admission to [facility]. Discharge ED - Sign-Out/Discharge Documenting (check all that apply): Patient Departure - Admit - Discharge Plan Condition: Fair Disposition: ADMITTED TO [facility] - Billing Disposition and Condition Condition: FAIR Disposition: Admitted to [facility] - Attestation Statements Document Initiated by Harriete: Yes Documenting Scribe: Bronson Molina Provider For Whom Vijaya is Documenting (Include Credential): Bernardo Butts MD Scribe Attestation: Bronson Branch, scribed for Bernardo Butts MD on 07/08/19 at 0644. Scribe Documentation Reviewed: Yes Provider Attestation: The documentation as recorded by the Bronson ervin accurately reflects the service I personally performed and the decisions made by nv, Bernardo Butts MD Status of Scribe Document: Viewed
[2019-07-07 21:43] LABS: ABS Basophils 0.1 10^3/ul (0-0.2); ABS Eosinophils 0.2 10^3/ul (0-0.6); ABS Lymphocytes 1.7 10^3/ul (1.0-4.8); ABS Monocytes 0.7 10^3/ul (0-0.8); ABS Neutrophils 5.8 10^3/ul (1.5-7.7); Hematocrit 34 % (35-47); Hemoglobin 11.7 g/dL (12.0-16.0); Lymphocyte % 20.4 %; Mean Corpuscular HGB Conc 35 g/dL (31-36); Mean Corpuscular Hemoglobin 33 pg (27-31); Mean Corpuscular Volume 96 fL (80-97); Mean Platelet Volume 8.9 fL (7.4-10.4); Platelet Count 193 10^3/uL (150-450); Red Blood Count 3.54 10^6 /uL (3.70-4.87); Red Cell Distribution Width 13 % (10-15); White Blood Count 8.4 10^3/uL (3.5-10.8)
[2019-07-07 21:52] LABS: INR 1.21 (0.82-1.09)
[2019-07-07 21:59] LABS: Albumin 3.5 g/dL (3.2-5.2); Albumin/Globulin Ratio 1.3 (1-3); BUN/Creatinine Ratio 16.4 (8-20); Calcium 8.8 mg/dL (8.6-10.3); EGFR African American 50.4 (>60); EGFR Non-African American 41.7 (>60); Globulin 2.7 g/dL (2-4); Potassium 3.5 mmol/L (3.5-5.0); Total Bilirubin 0.7 mg/dL (0.2-1.0); Total Protein 6.2 g/dL (6.4-8.9)
[2019-07-08 00:35] LABS: Urine Appearance Cloudy; Urine Bilirubin Negative (Negative); Urine Blood Negative (Negative); Urine Color Amber; Urine Glucose Negative (Negative); Urine Ketones Trace (Negative); Urine Nitrite Negative (Negative); Urine Protein Negative (Negative); Urine Specific Gravity 1.018 (1.010-1.030); Urine Urobilinogen Positive (Negative)
[2019-07-08] MEDS ORDERED: Acetaminophen TAB* 325 MG PO PRN (02:23)
[2019-07-08] MEDS ORDERED: Ondansetron INJ* 2 MG/ML VIAL IV PRN (02:23)
[2019-07-08] MEDS ORDERED: QUEtiapine TAB* 25 MG PO PRN (02:29)
[2019-07-08] MEDS ORDERED: Melatonin 3 MG TAB PO PRN (02:29)
[2019-07-08] MEDS ORDERED: NS 0.9% 1000 ML** 1,000 ML IV SCH ×2 (02:30→13:55)
--- NOTE | 2019-07-08 04:54 | HP ---
ADMISSION HISTORY AND PHYSICAL: DATE OF ADMISSION: 07/08/19 PRIMARY CARE PHYSICIAN: Dr. Carrillo. PROVIDER: Prabhu Lopes NP ATTENDING PHYSICIAN: Dr. Kaden Osorio.* (DICTATED BY PRABHU LOPES NP) OTHER PROVIDER: Dr. White. HISTORY OF PRESENT ILLNESS: This is an 88-year-old female with past medical history significant for Alzheimer's, coronary artery disease, and cardiomyopathy , who came to the emergency room on 07/07/19 via EMS. She is a patient of [facility] where she was walking and had fallen, unsure of what caused the fall and was found to be leaning up against the wall. The patient had hit her head, but the primary complaint was right hip pain. Of note , the patient was recently admitted to the hospital from 07/04/19 to 07/07/19 for UTI and weakness. She had been having multiple falls for the several days prior to her previous admission. Her CT scans were without any acute findings. In the emergency room, she received 1 L of IV fluids and 4 mg of IV morphine. A chest x-ray and right hip x-ray were performed which revealed right hip fracture. Hospitalists were asked to evaluate the patient for admission. PAST MEDICAL HISTORY: Alzheimer's, coronary artery disease, cardiomyopathy with an ejection fraction of 30% to 35%, paroxysmal SVT, hypertension, hypothyroidism, and SLE. PAST SURGICAL HISTORY: None known. MEDICATIONS: 1. Lorazepam 0.5 mg p.o. q.4 hours p.r.n. 2. Cyanocobalamin 100 mcg p.o. daily. 3. Cholecalciferol 2000 units p.o. daily. 4. Cefdinir 300 mg p.o. b.i.d. 5. Carvedilol 6.25 mg p.o. b.i.d. 6. Acetaminophen 500 mg p.o. q.6 hours p.r.n., max daily dose 2000 mg. 7. Quetiapine 50 mg p.o. daily p.r.n. 8. Melatonin 5 mg p.o. at bedtime p.r.n. 9. Levothyroxine 50 mcg p.o. daily. 10. Lorazepam 0.5 mg p.o. q.1400. 11. Furosemide 20 mg p.o. daily. ALLERGIES: PROPOXYPHENE. FAMILY HISTORY: Her father at the age of 88. Mother at 97. This information was obtained through chart review, unsure of causes of or any other family history. SOCIAL HISTORY: There is a distant history of EtOH abuse. Does not drink now. Does not use any tobacco or recreational substances. She is and her son and her are her healthcare proxies. REVIEW OF SYSTEMS: Unable to obtain review of systems due to decreased mentation and cognition. PHYSICAL EXAMINATION GENERAL: This is a well-developed older woman, seen resting in the stretcher, in mild distress noted grimacing with movement. VITAL SIGNS: Temperature 97.7 Fahrenheit, 66 pulse, 17 respirations, 97% oxygen on room air, and 128/97 blood pressure. HEENT: Conjunctivae pink and moist. PERRLA. EOMs intact. Mucous membranes are dry. Oropharynx is clear. NECK: Supple. RESPIRATORY: Lung sounds clear, but diminished throughout bilaterally on 2 L via nasal cannula. CARDIAC: S1 and S2, heart rate irregular. Systolic murmur auscultated. No gallops or rubs appreciated. ABDOMEN: Soft, nondistended. Tender to the right lower quadrant with positive bowel sounds x4. MUSCULOSKELETAL: No clubbing or cyanosis of the digits noted. Right leg, shortening with external rotation, 2+ posterior tibial pulses bilaterally. Trace right hip edema. Cap refill less than 3 seconds, was unable to follow any commands, to be able to assess for dorsi, plantar flexion. SKIN: There is a healing yellow bruise above the left eye with abrasions to bridge of nose, bruising to bilateral hips and lora area. Discoloration to bilateral lower extremities. NEUROLOGIC: No focal deficits appreciated. Responded to painful stimuli in bilateral lower extremities. PSYCH: Unable to assess orientation. DIAGNOSTIC STUDIES/LAB DATA: Pertinent laboratory data: RBC's 3.54, hemoglobin 11.7, hematocrit 34, MCH 33, INR 1.21. Creatinine 1.22, glucose 144 , total protein 6.2. Urine showed trace ketones with positive for urobilinogen and ascorbic acid. Diagnostic Studies: Chest x-ray, still awaiting official radiologic report. When compared to chest x-ray taken on 06/15/19, there appears to be some increase in patchy infiltrates around the medial aspects of both lungs. Right hip/pelvis x-ray, again awaiting official radiologic read, though according to the ED provider there appears to be a right hip possibly intratrochanteric fracture. ASSESSMENT AND PLAN: My impression is that this is an 88-year-old female with a past medical history significant for Alzheimer's, cardiomyopathy, and hypertension, who was admitted on 07/08/19 for right hip fracture and urinary tract infection. 1. Right hip fracture. Dr. White was consulted by the ED to examine imaging. He or one of his associates will be seeing the patient in the a.m. to make a determination about possible surgery. She was given 4 mg of IV morphine in the emergency room, which caused her to be calm, quite drowsy and needed to have 2 L oxygen placed. We will keep her bedrest and n.p.o. for now and hydrate her with normal saline. She has an RCRI score of 2, which indicates a 10.1% 30-day risk of , MIor cardiac arrest. I am awaiting a BNP. Due to her already reduced ejection fraction, I will be entering transthoracic echocardiogram to assist in preoperative cardiac risk evaluation. At this time , I would deem her a high risk for surgery. 2. Urinary tract infection. The patient had received 1 dose of IV ceftriaxone prior to being discharged on 07/07/19, and did receive a dose of cefdinir at [place]. I will continue on with 2 more days of IV antibiotics to finish her course of treatment. It is possible that this could have contributed to her fall. However, right now, she has no leukocytosis. Subsequent UA has been sent. 3. Hypertension. Her vital signs have been somewhat labile since being in the emergency room, going from 150s to 100s to 81/56, currently is 128/97. We will hold on her furosemide for now. 4. Hypothyroidism. Continue her levothyroxine. 5. Alzheimer's with behavioral disturbances. Please continue supportive care. She may take her quetiapine as needed as well lorazepam as needed. 6. Coronary artery disease. The patient is not on any aspirin. We will continue her Coreg twice a day. She is having no other signs or symptoms of acute coronary syndrome at this time. 7. DVT prophylaxis: Her risk factor score is 3 making her a high risk. Heparin subcu has been ordered. 8. Code status is DNR. DISPOSITION: To admit OBV to Short-Stay Surgical. CONDITION: Guarded. TIME SPENT: Time spent on the patient is about 60 minutes with 30 of that spent [id number]. PRABHU LOPES, COLOR PASTE MIXER [id number]/CPS #: [id number] MTDD
[2019-07-08] MEDS: Morphine INJ* 2 MG/ML 1 ML SYRINGE (TWO MG - NEW SYRINGE VERSION) IV PRN ×3 (05:00→18:27)
[2019-07-08] MEDS ORDERED: cefTRIAXone(*) 1 GM in NS 0.9% 50 ML* 50 ML IVPB SCH (06:00)
[2019-07-08] MEDS: Heparin VIAL(*) 5000 UNITS/ML VIAL (FIVE THOUSAND) SUBCUT SCH ×3 (06:14→21:47)
[2019-07-08] MEDS: Levothyroxine TAB* 50 MCG TAB PO SCH (06:17)
[2019-07-08] MEDS ORDERED: Furosemide TAB* 20 MG PO SCH (09:00)
[2019-07-08] MEDS: Carvedilol TAB* 6.25 MG PO SCH ×2 (09:03→20:55)
[2019-07-08] MEDS: Cholecalciferol TAB* 1000 UNITS PO SCH (09:03)
[2019-07-08] MEDS: Cyanocobalamin TAB* 500 MCG PO SCH (09:03)
--- NOTE | 2019-07-08 11:41 | CONS ---
ORTHOPEDICS CONSULTATION NOTE: DATE OF CONSULT: 07/08/19 ORTHOPEDICS PROVIDER: Wei White MD CHIEF COMPLAINT: Right hip injury. HISTORY OF PRESENT ILLNESS: Ms. Hickey is an 88-year-old female who has a past medical history signifi cant for Alzheimer's disease, coronary artery disease, cardiomyopathy, who was recently admitted to [facility] with urinary tract infection and weakness. She was discharged on 07/07/19. She is a res ident of [facility] and was found to have fallen, but it was unwitnessed. She was t hen leaning up against the wall. She was unable to bear weight and was brought to the emergency room . Right hip x-rays showed an intertrochanteric fracture. PAST MEDICAL HISTORY: Alzheimer's disease, coronary artery disease, cardiomyopathy with an ejection fraction of 30% to 35%, hypertension, hypothyroidism, and SLE. PAST SURGICAL HISTORY: Unknown. MEDICATIONS: 1. Lorazepam 0.5 mg p.o. q.4 hours p.r.n. 2. Cyanocobalamin 100 mcg p.o. daily. 3. Cholecalciferol 2000 units p.o. daily. 4. Cefdinir 300 mg p.o. b.i.d. 5. Carvedilol 6.25 mg p.o. b.i.d. 6. Acetaminophen 500 mg p.o. q.6 hours p.r.n. 7. Quetiapine 50 mg p.o. daily p.r.n. 8. Melatonin 5 mg p.o. at bedtime p.r.n. 9. Levothyroxine 50 mcg p.o. daily. 10. Lorazepam 0.5 mg p.o. q.1400. 11. Furosemide 20 mg p.o. daily. ALLERGIES: PROPOXYPHENE. FAMILY HISTORY: Unknown. SOCIAL HISTORY: The patient is . She does live at [facility]. Her son and are healthcare proxies. Per report, she does not drink alcohol or use tobacco. REVIEW OF SYSTEMS: Unable to obtain due to her dementia. PHYSICAL EXAM: She is a well-developed, well-nourished, older female, lying comfortably in bed. The re is no acute distress at rest. Vital Signs: Temperature 98.7, blood pressure 122/60, pulse of 65, respirations 16, oxygen saturation 98% on room air. HEENT: Normocephalic, atraumatic. Her hearing and vision are grossly intact. Neck: Her trachea is midline. Cardiovascular: Regular rate and rh ythm with normal S1, S2. There is a systolic murmur. No rubs or gallops. Lungs are clear to auscul tation bilaterally. No wheezes, rales, or rhonchi. Abdomen is soft, nondistended. Extremity exam o f the right lower extremity, the leg is shortened and externally rotated. She has no tenderness to p alpation along the foot, ankle, or knee. She is tender to palpation around the hip area. She did no t follow any commands to assess movement of the foot or ankle. There is a 2+ dorsalis pedis pulse. DIAGNOSTIC STUDIES/LAB DATA: Imaging: Right hip and pelvis x-ray show intertrochanteric fracture of the right hip. IMPRESSION: Right hip intertrochanteric fracture. PLAN: Given her history of cardiomyopathy and low ejection fraction, an echocardiogram has been orde red by the hospitalist service for risk stratification and she is deemed high risk for surgery. Once she is medically optimized her surgery, the patient will need to undergo right hip open reduction an d internal fixation with cephalomedullary nailing. Dr. White will continue to follow the patient w sammye she is admitted. HI WRIGHT [id number]/[facility] #: [id number]
[2019-07-08] MEDS: LORazepam TAB(*) 0.5 MG PO PRN (12:40)
--- NOTE | 2019-07-08 13:24 | PN ---
Progress Note - Progress Note Date of Service: 07/08/19 Note: 88 yo female, resident at [facility] with a recent history of increasingly frequent falls. Significant previous medical history as well, including dementia and cardiomyopathy. Fell last night, unwitnessed, and brought to the ED for a shortened, painful right hip. X-rays show an intertroch fracture. She is unable to participate in her care and a very high risk for surgery, so I called her son, who is her health care proxy, about his wishes for or against surgery. Message left on his phone, asking about interest in hospicare as well as warning him that even if we decide for surgery, anesthesia and I will discuss the case and surgery may not be an option due to her very high risk.
--- NOTE | 2019-07-08 13:53 | PN ---
Subjective Date of Service: 07/08/19 Interval History: Patient asleep at time of evaluation and awakens easily with light touch. She tells me she does not have any pain. She denies belly pain or chest pain. She has a large, unchewed piece of chicken in her mouth and nursing expresses she has not been chewing completely. Patient is poor historian due to dementia. No acute events per nursing. Objective Active Medications: Acetaminophen (Tylenol Tab*) 650 mg PO Q4H PRN PRN Reason: MILD PAIN or TEMP > 100.4 Carvedilol (Coreg Tab*) 6.25 mg PO BID [facility] Last Admin: 07/08/19 09:03 Dose: Not Given Cholecalciferol (Vitamin D Tab*) 2,000 units PO DAILY [facility] Last Admin: 07/08/19 09:03 Dose: Not Given Cyanocobalamin (Vitamin B12 Tab*) 125 mcg PO DAILY [facility] Last Admin: 07/08/19 09:03 Dose: Not Given Heparin Sodium (Porcine) (Heparin Vial(*)) 5,000 units SUBCUT Q8HR [facility] Last Admin: 07/08/19 06:14 Dose: 5,000 units Ceftriaxone Sodium 1 gm/ (Sodium Chloride) 50 mls @ 100 mls/hr IVPB Q24H [facility] Stop: 07/09/19 06:29 Last Admin: 07/08/19 06:14 Dose: 100 mls/hr Sodium Chloride (Ns 0.9% 1000 Ml) 1,000 mls @ 100 mls/hr IV PER RATE [facility] Last Admin: 07/08/19 04:54 Dose: 100 mls/hr Levothyroxine Sodium (Synthroid Tab*) 50 mcg PO DAILY@0600 [facility] Last Admin: 07/08/19 06:17 Dose: Not Given Lorazepam (Ativan Tab(*)) 0.5 mg PO Q4H PRN PRN Reason: AGITATION Last Admin: 07/08/19 12:40 Dose: 0.5 mg Melatonin (Melatonin) 3 mg PO BEDTIME PRN PRN Reason: INSOMNIA Morphine Sulfate (Morphine Inj (Syringe))*) 2 mg IV Q4H PRN PRN Reason: PAIN - MILD Last Admin: 07/08/19 11:44 Dose: 2 mg Ondansetron HCl (Zofran Inj*) 4 mg IV Q4H PRN PRN Reason: NAUSEA/VOMITING Quetiapine Fumarate (Seroquel Tab*) 50 mg PO DAILY PRN PRN Reason: AGITATION/ANXIETY Vital Signs - 8 hr 07/08/19 07/08/19 07/08/19 07:23 07:46 09:03 Temperature 98.1 F Pulse Rate 65 Respiratory 16 10 16 Rate Blood Pressure 122/60 (mmHg) O2 Sat by Pulse 98 Oximetry 07/08/19 07/08/19 07/08/19 11:39 11:44 12:40 Temperature 98.1 F Pulse Rate 79 Respiratory 17 18 18 Rate Blood Pressure 137/70 (mmHg) O2 Sat by Pulse 93 Oximetry Oxygen Devices in Use Now: None Appearance: Thin, elderly white female, laying in bed, appearing comfortable and in NAD Eyes: No Scleral Icterus, - - PERRL Ears/Nose/Mouth/Throat: Mucous Membranes Moist Neck: Trachea Midline Respiratory: Symmetrical Chest Expansion and Respiratory Effort, Clear to Auscultation Cardiovascular: NL Sounds; No Murmurs; No JVD, RRR Abdominal: - - abd soft, nontender, nondistended Extremities: No Edema, No Clubbing, Cyanosis, - - right leg externally rotated at hip Skin: No Rash or Ulcers Neurological: - - alert and oriented to self; able to move toes bilaterally Result Diagrams: 07/07/19 21:34 07/07/19 21:34 Microbiology and Other Data: Microbiology 07/08/19 03:09 Nasal Screen MRSA (PCR) - Final Nasal Mrsa Not Detected Assess/Plan/Problems-Billing Assessment: 88 yo female with PMHx CM with EF 30%, CAD, HTN, hypothyroidism, paroxysmal SVT , and lupus presents after an unwitnessed fall, found to have right hip fracture. - Patient Problems (1) Fever Current Visit: Yes Status: Acute Code(s): R50.9 - FEVER, UNSPECIFIED SNOMED Code(s): 085342530 Comment: -fever developed in the afternoon plus new respiratory failure, requiring 4L via oxymask -ordered blood cultures which will likely be of low utility due to taking cephalosporins already for UTI since previous hospitalization -prior urine culture was contaminated, awaiting new urine culture from this admission -changing ceftriaxone to zosyn for broader coverage -stat CBC, lactic, CMP pending -on the differential includes fat embolism considering recent intertrochanteric fracture, though the options for intervention are limited as family at this time is opting for nonoperative -respiratory failure may likely be related to fluid overload considering EF 25- 30%; stopped fluids, start home lasix and pulmonary toilet (which is limited due to hip fracture) (2) Closed right hip fracture Current Visit: Yes Status: Acute Code(s): S72.001A - FRACTURE OF UNSP PART OF NECK OF RIGHT FEMUR, INIT SNOMED Code(s): 504289899 Comment: -right hip fracture after unwitnessed fall at home -appreciate ortho consult -Dr. White reports that HCP, son, is opting to avoid surgery and make patient hospice, but wishes to further discuss with other family members -echo was performed for risk stratification if patient's family elects for surgery, though now nonoperative appears to be path; EF 25-30% with severe hypokinesis -will consult Dr. Connell for palliative consult -continue pain control and bowel regimen (3) Acute kidney injury Current Visit: No Status: Acute Code(s): N17.9 - ACUTE KIDNEY FAILURE, UNSPECIFIED SNOMED Code(s): 59712576 Comment: -likely prerenal, patient likely having decreased oral intake in setting of confusion and recent infection -decreased IVF rate and then stopped as above (4) Cardiomyopathy Current Visit: Yes Status: Acute Code(s): I42.9 - CARDIOMYOPATHY, UNSPECIFIED SNOMED Code(s): 84021230 Comment: -nonischemic cardiomyopathy with EF 30% -cont carvedilol -restarting lasix as above (5) CAD (coronary artery disease) Current Visit: Yes Status: Acute Code(s): I25.10 - ATHSCL HEART DISEASE OF [place] CORONARY ARTERY W/O ANG PCTRS SNOMED Code(s): 79516166 Comment: -continue carvedilol -doesn't appear to be taking antiplatelet therapy at home (6) Dementia Current Visit: Yes Status: Acute Code(s): F03.90 - UNSPECIFIED DEMENTIA WITHOUT BEHAVIORAL DISTURBANCE SNOMED Code(s): 19841860 Comment: -supportive care (7) Hypertension Current Visit: No Status: Acute Code(s): I10 - ESSENTIAL (PRIMARY) HYPERTENSION SNOMED Code(s): 21572263 Comment: -Normotensive -holding home lasix while giving IVF -continue home carvedilol (8) Hypothyroidism Current Visit: No Status: Acute Code(s): E03.9 - HYPOTHYROIDISM, UNSPECIFIED SNOMED Code(s): 19472545 Comment: -appears that patient started on synthroid one month ago -although TSH remains elevated it is trending down in comparison -recommend repeat TSH in 3-4 weeks, unless patient discharged as hospice (9) DVT prophylaxis Current Visit: No Status: Acute Code(s): Z29.9 - ENCOUNTER FOR PROPHYLACTIC MEASURES, UNSPECIFIED SNOMED Code(s): 590979704 Comment: -SQ Heparin (10) DNR (do not resuscitate) Current Visit: No Status: Acute Status and Disposition: patient's HCP needs to discuss further with other family about plan; likely will need VIDAL vs hospice placement
[2019-07-08] MEDS ORDERED: Docusate CAP* 100 MG PO PRN (14:43)
[2019-07-08] MEDS ORDERED: Senna TAB 8.6 mg* TAB PO PRN (14:43)
[2019-07-08] MEDS ORDERED: Magnesium Hydroxide LIQ* 30 ML UDC PO PRN (14:43)
--- NOTE | 2019-07-08 16:02 | ECHO ---
*[facility]* [place] [address] Fax #: [phone] Transthoracic Echocardiogram Patient: Vane Hickey : 1930 Study Date: 07/08/2019 Age: 88 Gender: F HR: 81 bpm Height: 62 in /157.5 cm BSA: 1.51 m^2 Weight: 113.8 lb /51.7 kg BMI: 20.9 kg/m^2 *[place]: * Lauren Elkins [facility] *Referring Physician: * Mary Ellen Lopes *Reading Physician: * Adrian Wong MD Indications: Cardiomyopathy. History: Coronary artery disease. PMH: Cardiomyopathy. Risk factors: Hypertension. Conclusions Summary: - Left ventricle: The cavity size is normal. Wall thickness is mildly increased. Systolic function is reduced. The estimated ejection fraction is 25-30%. Systolic function is worse from the study of June 2007. Severe diffuse hypokinesis with regional variations. There is moderate interventricular dyssynchrony. Doppler parameters are consistent with abnormal left ventricular relaxation (grade 1 diastolic dysfunction). - Left atrium: The atrium is mildly dilated. - Right atrium: The atrium is mildly dilated. - Mitral valve: There is mild to moderate regurgitation. Regurgitation has increased in comparison with the study of June 2007. Study data: Transthoracic echocardiogram. Procedure: Transthoracic echocardiography was performed. Image quality was adequate. Complete 2D, spectral Doppler, and color flow Doppler. Location: Bedside. Patient status: Inpatient. Patient room number: 336. The previous study was not available, so comparison is made to the report of June 2007. Rhythm: Normal sinus rhythm. Findings Left ventricle: The cavity size is normal. Wall thickness is mildly increased. Systolic function is reduced. The estimated ejection fraction is 25-30%. Systolic function is worse from the study of June 2007. Severe diffuse hypokinesis with regional variations. There is moderate interventricular dyssynchrony. Doppler parameters are consistent with abnormal left ventricular relaxation (grade 1 diastolic dysfunction). Right ventricle: Not well visualized. Systolic function is reduced. Left atrium: The atrium is mildly dilated. Right atrium: The atrium is mildly dilated. Mitral valve: The leaflets are mildly thickened. There is no evidence of stenosis. There is mild to moderate regurgitation. Regurgitation has increased in comparison with the study of June 2007. Aortic valve: The annulus is mildly calcified. Cusp separation is normal. There is no evidence of stenosis. There is trace regurgitation. Tricuspid valve: The leaflets are normal thickness. There is no evidence of stenosis. There is trace regurgitation. Pulmonic valve: Not well visualized. There is no significant regurgitation. Aorta: The aortic root appears normal. The aortic arch appears normal. Pericardium: There is no significant pericardial effusion. Pulmonary arteries: Systolic pressure can not be accurately estimated. Systemic veins: Inferior vena cava: Not well visualized. Measurements Left ventricle Value Ref Aortic valve continued Value Ref REILLY, LAX 4.5 cm 3.8 - 5.2 VTI, S 29.0 cm ---- ESD, LAX (H) 3.7 cm 2.2 - 3.5 Mean grad, S 4.0 mm Hg ---- FS, LAX (L) 18 % 27 - 45 Peak grad, S 8.0 mm Hg ---- PW, ED, LAX (H) 1.1 cm 0.6 - 0.9 E', lat cole, TDI (L) 5.5 cm/sec >=10.0 Mitral valve Value Ref E/e', lat cole, 9 Peak E 0.49 m/sec -- -- TDI Peak A 0.78 m/sec ---- E', med cole, TDI (L) 4.5 cm/sec >=7.0 Decel time 135 ms ---- E/e', med cole, 11 Peak E/A ratio 0.6 -- -- TDI ERO, PISA 0.06 cm^2 ---- E', avg, TDI 5.0 cm/sec MR vol, PISA 11 ml -- -- E/e', avg, TDI 10 <=14 Pulmonic valve Value Ref LVOT Value Ref Peak v, S 0.53 m/sec ---- Peak pedro, S 0.65 m/sec Peak grad, S 1.0 mm Hg ---- Mean grad, S 1 mm Hg Aortic root Value Ref Ventricular septum Value Ref Root diam 2.3 cm <3.8 IVS, ED (H) 1.1 cm 0.6 - 0.9 Root max diam, ED 2.3 cm <3.8 Left atrium Value Ref Aortic arch Value Ref AP dim, ES 2.90 cm 2.70 - Arch diam 2.8 cm ---- 3.80 ML dim, A4C 3.5 cm Decending aorta Value Ref SI dim, A4C 5.6 cm Dawn peak pedro 0.37 m/sec ---- Vol/bsa, ES, A/L (H) 41 ml/m^2 16 - 34 Pulmonary veins Value Ref Right atrium Value Ref Peak v, S 0.42 m/sec ---- SI dim, ES 5.0 cm 3.4 - 5.3 Peak v, D 0.25 m/sec ---- SI dim/bsa, ES, (H) 3.3 cm/m^2 1.9 - 3.1 Peak S/D ratio 1.7 ---- A4C A rev duration 79 ms ---- Estimated RAP 8 mm Hg Aortic valve Value Ref Peak v, S 1.41 m/sec Legend: (L) and (H) denis values outside specified reference range. Prepared and electronically signed by Adrian Wong MD 07/08/2019 15:41
[2019-07-08] MEDS ORDERED: Piperacillin/Tazobac ADVAN(*) 3.375 GM in NS 0.9% 100 ML* 100 ML IVPB ONE (17:33)
[2019-07-08] MEDS: Furosemide TAB* 20 MG PO SCH (17:36)
[2019-07-08] MEDS ORDERED: Zosyn per Pharmacy* NOTE FOLLOW UP SCH (18:00)
[2019-07-08] MEDS: ZOSYN 3.375 GM Q8H per EXTENDED INFUSION IVPB SCH ×2 (21:45)
[2019-07-09] MEDS: Levothyroxine TAB* 50 MCG TAB PO SCH (05:44)
[2019-07-09] MEDS: Heparin VIAL(*) 5000 UNITS/ML VIAL (FIVE THOUSAND) SUBCUT SCH (05:46)
[2019-07-09] MEDS: ZOSYN 3.375 GM Q8H per EXTENDED INFUSION IVPB SCH ×2 (05:47)
[2019-07-09] MEDS: Morphine INJ* 2 MG/ML 1 ML SYRINGE (TWO MG - NEW SYRINGE VERSION) IV PRN (07:50)
--- NOTE | 2019-07-09 09:23 | PN ---
Progress Note - Progress Note Date of Service: 07/09/19 SOAP: Subjective: []Pt seen and examined at bedside. She is fearful and asking me to get her out of the hospital. Does not answer my questions or follow direction. Objective: []Gen: Alert, confused and afraid BL UE and LLE: nontender, moving extremities actively without obvious pain RLE: skin envelope intact. Lateral hip tender to palpation. df/pf intact, dp2+ distally Calves supple and nontender Assessment: []Right intertrochanteric fracture Plan: []Heparin DVT prophy Nonop treatment with hospice planned. Dr Connell consulted Ortho will follow, please alert us of any change in treatment wishes of patient or family Vital Signs Temp 98.8 F 07/09/19 07:30 Pulse 75 07/09/19 07:30 Resp 18 07/09/19 08:00 BP 139/61 07/09/19 07:30 Pulse Ox 98 07/09/19 07:30 Intake & Output 07/08/19 07/09/19 07/09/19 18:59 06:59 18:59 Intake Total 105 100 Output Total 100 425 Balance 5 -325 Weight 114 lb 10.246 oz 105 lb 9.6 oz Intake: IVPB 55 100 ABX - CEFTRIAXONE 55 ABX - ZOSYN 100 Oral 50 0 Output: Urine 200 Delacruz 100 225 Laboratory Last Values WBC 8.4 10^3/uL (3.5-10.8) 07/07/19 21:34 RBC 3.54 10^6 /uL (3.70-4.87) L 07/07/19 21:34 Hgb 11.7 g/dL (12.0-16.0) L 07/07/19 21:34 Hct 34 % (35-47) L 07/07/19 21:34 MCV 96 fL (80-97) 07/07/19 21:34 MCH 33 pg (27-31) H 07/07/19 21:34 MCHC 35 g/dL (31-36) 07/07/19 21:34 RDW 13 % (10-15) 07/07/19 21:34 Plt Count 193 10^3/uL (150-450) 07/07/19 21:34 MPV 8.9 fL (7.4-10.4) 07/07/19 21:34 Neut % (Auto) 68.8 % 07/07/19 21:34 Lymph % (Auto) 20.4 % 07/07/19 21:34 [place] % (Auto) 7.9 % 07/07/19 21:34 Eos % (Auto) 2.0 % 07/07/19 21:34 Baso % (Auto) 0.9 % 07/07/19 21:34 Absolute Neuts (auto) 5.8 10^3/ul (1.5-7.7) 07/07/19 21:34 Absolute Lymphs (auto) 1.7 10^3/ul (1.0-4.8) 07/07/19 21:34 Absolute Monos (auto) 0.7 10^3/ul (0-0.8) 07/07/19 21:34 Absolute Eos (auto) 0.2 10^3/ul (0-0.6) 07/07/19 21:34 Absolute Basos (auto) 0.1 10^3/ul (0-0.2) 07/07/19 21:34 Absolute Nucleated RBC 0.0 10^3/ul 07/07/19 21:34 Nucleated RBC % 0.0 07/07/19 21:34 INR (Anticoag Therapy) 1.21 (0.82-1.09) H 07/07/19 21:34 APTT 28.0 seconds (26.0-38.0) 07/07/19 21:34 Sodium 143 mmol/L (135-145) 07/07/19 21:34 Potassium 3.5 mmol/L (3.5-5.0) 07/07/19 21:34 Chloride 105 mmol/L (101-111) 07/07/19 21:34 Carbon Dioxide 29 mmol/L (22-32) 07/07/19 21:34 Anion Gap 9 mmol/L (2-11) 07/07/19 21:34 BUN 20 mg/dL (6-24) 07/07/19 21:34 Creatinine 1.22 mg/dL (0.51-0.95) H 07/07/19 21:34 Est GFR ( Amer) 50.4 (>60) 07/07/19 21:34 Est GFR (Non-Af Amer) 41.7 (>60) 07/07/19 21:34 BUN/Creatinine Ratio 16.4 (8-20) 07/07/19 21:34 Glucose 144 mg/dL (70-100) H 07/07/19 21:34 Calcium 8.8 mg/dL (8.6-10.3) 07/07/19 21:34 Total Bilirubin 0.70 mg/dL (0.2-1.0) 07/07/19 21:34 AST 19 U/L (13-39) 07/07/19 21:34 ALT 12 U/L (7-52) 07/07/19 21:34 Alkaline Phosphatase 56 U/L (34-104) 07/07/19 21:34 B-Natriuretic Peptide 524 pg/mL (<=100) H 07/07/19 21:34 Total Protein 6.2 g/dL (6.4-8.9) L 07/07/19 21:34 Albumin 3.5 g/dL (3.2-5.2) 07/07/19 21:34 Globulin 2.7 g/dL (2-4) 07/07/19 21:34 Albumin/Globulin Ratio 1.3 (1-3) 07/07/19 21:34 Urine Color Trang 07/08/19 00:05 Urine Appearance Cloudy 07/08/19 00:05 Urine pH 5.0 (5-9) 07/08/19 00:05 Ur Specific [place] 1.018 (1.010-1.030) 07/08/19 00:05 Urine Protein Negative (Negative) 07/08/19 00:05 Urine Ketones Trace (Negative) A 07/08/19 00:05 Urine Blood Negative (Negative) 07/08/19 00:05 Urine Nitrate Negative (Negative) 07/08/19 00:05 Urine Bilirubin Negative (Negative) 07/08/19 00:05 Urine Urobilinogen Positive (Negative) A 07/08/19 00:05 Ur Leukocyte Esterase Negative (Negative) 07/08/19 00:05 Urine Glucose Negative (Negative) 07/08/19 00:05 Urine Ascorbic Acid * (Negative) A 07/08/19 00:05 Blood Type O Positive 07/07/19 21:34 Antibody Screen Negative 07/07/19 21:34
[2019-07-09] MEDS: LORazepam TAB(*) 0.5 MG PO PRN ×3 (09:46→22:02)
[2019-07-09] MEDS ORDERED: Morphine INJ* 2 MG/ML 1 ML SYRINGE (TWO MG - NEW SYRINGE VERSION) IV PRN (11:54)
[2019-07-09] MEDS ORDERED: Morphine ORAL.SOLN 10 mg* 2 MG/ML UDC 5 ml PO PRN (12:08)
[2019-07-09] MEDS ORDERED: Morphine ORAL CONCENTRATE* 5 MG/0.25 ML ORAL.SYRIN PO PRN (12:09)
[2019-07-09] MEDS ORDERED: Acetaminophen TAB* 325 MG PO PRN (12:10)
--- NOTE | 2019-07-09 12:10 | CONSULT ---
Palliative / Hospice Consult Ordering Provider: Ivon [facility] Reason: Requesting hospice/docusate,senna/no meds - Subjective Code Status: DNR Advance Directives Location: In Chart MOLST Part A Completed: Yes - on chart MOLST Part E Completed:: Yes - on chart - History or Present Illness History or Present Illness: 88yo female resident of [place] presents to ER with R hip pain s/p fall. PMH is significant for moderate severe to severe dementia CAD, cardiomegaly EF 30-35 %, multiple falls, HTN, hypothyroid, SLE and paroxysmal SVT. PSHx distant etoh, no tob, no drug, with one son moved to [place] 2.5 months ago. Studies ekg-nsr, hip/pelv xray-intertrochanteric fx of proximal R femur, CXR- cardiomegaly, Echo-EF 25-30%, severe diffuse hypokinesis, CXR-cardiomegaly, pulm interestial edema, small bilat pleural effusion, H/H 11.7/34, BUN/Cr 20/ 1.22, egfr 41.7, BNP 524, alb 3.5 and INR 1.21. Pt admitted with R hip fx. Pt has been in ER 6 times since March and 2 hospitalizations. All history family and medical record. Pt is unable to contribute. Lab Values: Laboratory Last Values WBC 8.4 10^3/uL (3.5-10.8) 07/07/19 21:34 RBC 3.54 10^6 /uL (3.70-4.87) L 07/07/19 21:34 Hgb 11.7 g/dL (12.0-16.0) L 07/07/19 21:34 Hct 34 % (35-47) L 07/07/19 21:34 MCV 96 fL (80-97) 07/07/19 21:34 MCH 33 pg (27-31) H 07/07/19 21:34 MCHC 35 g/dL (31-36) 07/07/19 21:34 RDW 13 % (10-15) 07/07/19 21:34 Plt Count 193 10^3/uL (150-450) 07/07/19 21:34 MPV 8.9 fL (7.4-10.4) 07/07/19 21:34 Neut % (Auto) 68.8 % 07/07/19 21:34 Lymph % (Auto) 20.4 % 07/07/19 21:34 [place] % (Auto) 7.9 % 07/07/19 21:34 Eos % (Auto) 2.0 % 07/07/19 21:34 Baso % (Auto) 0.9 % 07/07/19 21:34 Absolute Neuts (auto) 5.8 10^3/ul (1.5-7.7) 07/07/19 21:34 Absolute Lymphs (auto) 1.7 10^3/ul (1.0-4.8) 07/07/19 21:34 Absolute Monos (auto) 0.7 10^3/ul (0-0.8) 07/07/19 21:34 Absolute Eos (auto) 0.2 10^3/ul (0-0.6) 07/07/19 21:34 Absolute Basos (auto) 0.1 10^3/ul (0-0.2) 07/07/19 21:34 Absolute Nucleated RBC 0.0 10^3/ul 07/07/19 21:34 Nucleated RBC % 0.0 07/07/19 21:34 INR (Anticoag Therapy) 1.21 (0.82-1.09) H 07/07/19 21:34 APTT 28.0 seconds (26.0-38.0) 07/07/19 21:34 Sodium 143 mmol/L (135-145) 07/07/19 21:34 Potassium 3.5 mmol/L (3.5-5.0) 07/07/19 21:34 Chloride 105 mmol/L (101-111) 07/07/19 21:34 Carbon Dioxide 29 mmol/L (22-32) 07/07/19 21:34 Anion Gap 9 mmol/L (2-11) 07/07/19 21:34 BUN 20 mg/dL (6-24) 07/07/19 21:34 Creatinine 1.22 mg/dL (0.51-0.95) H 07/07/19 21:34 Est GFR ( Amer) 50.4 (>60) 07/07/19 21:34 Est GFR (Non-Af Amer) 41.7 (>60) 07/07/19 21:34 BUN/Creatinine Ratio 16.4 (8-20) 07/07/19 21:34 Glucose 144 mg/dL (70-100) H 07/07/19 21:34 Calcium 8.8 mg/dL (8.6-10.3) 07/07/19 21:34 Total Bilirubin 0.70 mg/dL (0.2-1.0) 07/07/19 21:34 AST 19 U/L (13-39) 07/07/19 21:34 ALT 12 U/L (7-52) 07/07/19 21:34 Alkaline Phosphatase 56 U/L (34-104) 07/07/19 21:34 B-Natriuretic Peptide 524 pg/mL (<=100) H 07/07/19 21:34 Total Protein 6.2 g/dL (6.4-8.9) L 07/07/19 21:34 Albumin 3.5 g/dL (3.2-5.2) 07/07/19 21:34 Globulin 2.7 g/dL (2-4) 07/07/19 21:34 Albumin/Globulin Ratio 1.3 (1-3) 07/07/19 21:34 Urine Color Trang 07/08/19 00:05 Urine Appearance Cloudy 07/08/19 00:05 Urine pH 5.0 (5-9) 07/08/19 00:05 Ur Specific [place] 1.018 (1.010-1.030) 07/08/19 00:05 Urine Protein Negative (Negative) 07/08/19 00:05 Urine Ketones Trace (Negative) A 07/08/19 00:05 Urine Blood Negative (Negative) 07/08/19 00:05 Urine Nitrate Negative (Negative) 07/08/19 00:05 Urine Bilirubin Negative (Negative) 07/08/19 00:05 Urine Urobilinogen Positive (Negative) A 07/08/19 00:05 Ur Leukocyte Esterase Negative (Negative) 07/08/19 00:05 Urine Glucose Negative (Negative) 07/08/19 00:05 Urine Ascorbic Acid * (Negative) A 07/08/19 00:05 Blood Type O Positive 07/07/19 21:34 Antibody Screen Negative 07/07/19 21:34 - Objective Active Medications: Carvedilol (Coreg Tab*) 6.25 mg PO BID [facility] Last Admin: 07/08/19 20:55 Dose: 6.25 mg Cholecalciferol (Vitamin D Tab*) 2,000 units PO DAILY [facility] Last Admin: 07/08/19 09:03 Dose: Not Given Cyanocobalamin (Vitamin B12 Tab*) 125 mcg PO DAILY [facility] Last Admin: 07/08/19 09:03 Dose: Not Given Docusate Sodium (Colace Cap*) 100 mg PO DAILY PRN PRN Reason: CONSTIPATION Furosemide (Lasix Tab*) 20 mg PO DAILY [facility] Last Admin: 07/08/19 17:36 Dose: 20 mg Heparin Sodium (Porcine) (Heparin Vial(*)) 5,000 units SUBCUT Q8HR [facility] Last Admin: 07/09/19 05:46 Dose: 5,000 units Piperacillin Sod/Tazobactam (Sod 3.375 gm/ Sodium Chloride) 100 mls @ 25 mls/ hr IVPB Q8H [facility] Last Admin: 07/09/19 05:47 Dose: 25 mls/hr Levothyroxine Sodium (Synthroid Tab*) 50 mcg PO DAILY@0600 [facility] Last Admin: 07/09/19 05:44 Dose: 50 mcg Lorazepam (Ativan Tab(*)) 0.5 mg PO Q4H PRN PRN Reason: AGITATION Last Admin: 07/09/19 09:46 Dose: 0.5 mg Magnesium Hydroxide (Milk Of Magnesia Liq*) 30 ml PO Q4H PRN PRN Reason: CONSTIPATION Melatonin (Melatonin) 3 mg PO BEDTIME PRN PRN Reason: INSOMNIA Morphine Sulfate (Morphine Inj (Syringe))*) 2 mg IV Q2H PRN PRN Reason: PAIN - MILD Ondansetron HCl (Zofran Inj*) 4 mg IV Q4H PRN PRN Reason: NAUSEA/VOMITING Pharmacy Consult (Zosyn Per Pharmacy*) 1 note FOLLOW UP .ZOSYN PER PHARMACY [facility] Quetiapine Fumarate (Seroquel Tab*) 50 mg PO DAILY PRN PRN Reason: AGITATION/ANXIETY Last Admin: 07/08/19 20:55 Dose: 50 mg Senna (Senokot 8.6 Mg Tab*) 1 tab PO DAILY PRN PRN Reason: CONSTIPATION Last Admin: 07/08/19 20:54 Dose: 1 tab Vital Signs: Vital Signs: Temp Pulse Resp BP Pulse Ox 98.5 F 74 20 103/44 98 07/09/19 11:09 07/09/19 11:09 07/09/19 11:26 07/09/19 11:09 07/09/19 11:09 Patient Weight: Weight 47.899 kg Intake and Output: Intake & Output 07/07/19 07/08/19 07/09/19 07/10/19 06:59 06:59 06:59 06:59 Intake Total 205 Output Total 100 525 Balance -100 -320 Weight 52 kg 47.899 kg Intake: IVPB 155 ABX - CEFTRIAXONE 55 ABX - ZOSYN 100 Oral 50 Output: Urine 200 Delacruz 100 325 ADLs: Meal Record Start: 07/08/19 03: 43 Freq: Status: Active Protocol: Created 07/08/19 03:43 System (Rec: 07/08/19 03:43 System [id number]) Intake and Output Start: 07/07/19 21: 23 Freq: Status: Active Protocol: Created 07/07/19 21:23 System (Rec: 07/07/19 21:23 System [id number]) Intake and Output Start: 07/08/19 03: 43 Freq: DAILY@0600,1400,2200 Status: Active Protocol: Created 07/08/19 03:43 System (Rec: 07/08/19 03:43 System [id number]) Document 07/08/19 05:24 [id number] (Rec: 07/08/19 05:28 [id number]) Document 07/08/19 13:23 [id number] (Rec: 07/08/19 13:23 [id number] [id number]) Document 07/08/19 22:12 [id number] (Rec: 07/08/19 22:13 [id number] [id number]) Document 07/09/19 05:37 [id number] (Rec: 07/09/19 05:40 [id number] [id number]) Document 07/09/19 05:58 [id number] (Rec: 07/09/19 05:58 [id number] [id number]) Eyes: No Scleral Icterus, - - PERRL Ears/Nose/Mouth/Throat: NL Teeth, Lips, Gums, Mucous Membranes Moist Neck: NL Appearance and Movements; NL JVP, Trachea Midline Cardiovascular: NL Sounds; No Murmurs; No JVD, RRR Respiratory: Symmetrical Chest Expansion and Respiratory Effort Abdominal: NL Sounds; No Tenderness; No Distention, - - abd soft, nontender, nondistended Extremities: No Edema, No Clubbing, Cyanosis, - - right leg externally rotated at hip Neurological: - - alert and oriented to self; able to move toes bilaterally - Assessment Assessment: 88yo female with moderate severe/severe dementia, cardiomegaly EF 25-30%, R hip fx and not eating requesting hospice - Plan Consult Plan (MU): Hospice Plan: Long discussion with son and daughter in law about goals of care. 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 According to family pt has been declining losing weight because not eating(needs prompts to cue for eating) and frequently falling. Family feels pts quality of life has not been good. They are requesting hospice , hospice information/brochure given. They would like to try for hospice residence if no bed will bring home and will need hospital bed. Pt is not eating and can have life expectancy of 4-10 days if no intake. Family requesting comfort measures. Hospice eligibility based on moderate severe to severe dementia, cardiomegaly with EF 25-30%, R hip fx and overall declining with weight loss and frequent falls. KPS 40%, PPS 30% - Time On Unit Date of Evaluation: 07/09/19 Hospice Consult Time in: 11:00 Hospice Consult Time Out: 12:00 Hospice Consult Time Total: 60 > 50% of Time Spend In Counseling or Coordinating Care: Yes
--- NOTE | 2019-07-09 12:17 | PN ---
Subjective Date of Service: 07/09/19 Interval History: Patient resting comfortably at time of my evaluation. Had been agitated earlier in the day and received ativan prior to my evaluation. , son, and [id number] at bedside. Already discussed plans for comfort measures with Dr. Connell. Did clarify that they in fact wanted no medical intervention at this time. They tell me they would still like to hold off on labs, and would be OK with me stopping antibiotics and chronic medications ie carvedilol. Objective Active Medications: Acetaminophen (Tylenol Tab*) 650 mg PO Q6H PRN PRN Reason: MILD PAIN or TEMP > 100.4 Docusate Sodium (Colace Cap*) 100 mg PO DAILY PRN PRN Reason: CONSTIPATION Lorazepam (Ativan Tab(*)) 0.5 mg PO Q2H PRN PRN Reason: agitation/air hunger Magnesium Hydroxide (Milk Of Magnesia Liq*) 30 ml PO Q4H PRN PRN Reason: CONSTIPATION Melatonin (Melatonin) 3 mg PO BEDTIME PRN PRN Reason: INSOMNIA Morphine Sulfate (Morphine Oral Concentrate*) 5 mg PO Q2H PRN PRN Reason: pain/air hunger Ondansetron HCl (Zofran Inj*) 4 mg IV Q4H PRN PRN Reason: NAUSEA/VOMITING Quetiapine Fumarate (Seroquel Tab*) 50 mg PO DAILY PRN PRN Reason: AGITATION/ANXIETY Last Admin: 07/08/19 20:55 Dose: 50 mg Senna (Senokot 8.6 Mg Tab*) 1 tab PO DAILY PRN PRN Reason: CONSTIPATION Last Admin: 07/08/19 20:54 Dose: 1 tab Vital Signs - 8 hr 07/09/19 07/09/19 07/09/19 07:30 07:50 08:00 Temperature 98.8 F Pulse Rate 75 Respiratory 15 18 18 Rate Blood Pressure 139/61 (mmHg) O2 Sat by Pulse 98 Oximetry 07/09/19 07/09/19 07/09/19 09:46 11:09 11:26 Temperature 98.5 F Pulse Rate 74 Respiratory 18 15 20 Rate Blood Pressure 103/44 (mmHg) O2 Sat by Pulse 98 Oximetry Oxygen Devices in Use Now: Simple Face Mask Appearance: Thin, elderly white female, laying in bed, laying in bed, appearing comfortable and in NAD; awakens to gentle touch Eyes: No Scleral Icterus, - - PERRL Ears/Nose/Mouth/Throat: Mucous Membranes Moist Respiratory: Symmetrical Chest Expansion and Respiratory Effort, Clear to Auscultation Cardiovascular: NL Sounds; No Murmurs; No JVD, RRR Abdominal: - - abd soft, minimally distended, nontender Extremities: No Edema, No Clubbing, Cyanosis, - - right LE externally rotated at hip Skin: No Rash or Ulcers Neurological: - - somewhat drowsy but does alert to light touch, oriented x1 Result Diagrams: 07/07/19 21:34 07/07/19 21:34 Microbiology and Other Data: Microbiology 07/08/19 03:09 Nasal Screen MRSA (PCR) - Final Nasal Mrsa Not Detected Assess/Plan/Problems-Billing Assessment: 88 yo female with PMHx CM with EF 30%, CAD, HTN, hypothyroidism, paroxysmal SVT , and lupus presents after an unwitnessed fall, found to have right hip fracture. - Patient Problems (1) Comfort measures only status Current Visit: Yes Status: Acute Code(s): Z51.5 - ENCOUNTER FOR PALLIATIVE CARE SNOMED Code(s): 86722593362420 Comment: -has had progressive dementia, worsening in the last 3 months -presented after fall, found to have right hip fracture -family opting for nonoperative management and planning to proceed to hospice at home (2) Fever Current Visit: Yes Status: Acute Code(s): R50.9 - FEVER, UNSPECIFIED SNOMED Code(s): 655057177 Comment: -fever developed yesterday; family not interested in further testing or empiric abx (3) DNR (do not resuscitate) Current Visit: No Status: Acute Status and Disposition: planning for hospice at home, awaiting hospital bed to home
[2019-07-09] MEDS: Cholecalciferol TAB* 1000 UNITS PO SCH (12:27)
[2019-07-09] MEDS: Furosemide TAB* 20 MG PO SCH (12:27)
[2019-07-09] MEDS: Cyanocobalamin TAB* 500 MCG PO SCH (12:27)
[2019-07-09] MEDS: Carvedilol TAB* 6.25 MG PO SCH (12:27)
[2019-07-09] MEDS: Morphine ORAL CONCENTRATE* 5 MG/0.25 ML ORAL.SYRIN PO PRN ×3 (12:34→22:03)
[2019-07-10] MEDS: Morphine ORAL CONCENTRATE* 5 MG/0.25 ML ORAL.SYRIN PO PRN ×4 (04:28→22:15)
[2019-07-10] MEDS: LORazepam TAB(*) 0.5 MG PO PRN ×2 (04:47→12:11)
[2019-07-10 11:19] VITALS: BP 116/71
--- NOTE | 2019-07-10 12:06 | PN ---
Subjective Date of Service: 07/10/19 Interval History: Patient moaning when in room. Tells me no when asked if she's in pain but then says something unintelligible. Family at bedside tells me she has been like this for about an hour. Is due for ativan and morphine. Objective Active Medications: Acetaminophen (Tylenol Tab*) 650 mg PO Q6H PRN PRN Reason: MILD PAIN or TEMP > 100.4 Docusate Sodium (Colace Cap*) 100 mg PO DAILY PRN PRN Reason: CONSTIPATION Lorazepam (Ativan Tab(*)) 0.5 mg PO Q2H PRN PRN Reason: agitation/air hunger Last Admin: 07/10/19 04:47 Dose: 0.5 mg Magnesium Hydroxide (Milk Of Magnesia Liq*) 30 ml PO Q4H PRN PRN Reason: CONSTIPATION Melatonin (Melatonin) 3 mg PO BEDTIME PRN PRN Reason: INSOMNIA Morphine Sulfate (Morphine Oral Concentrate*) 5 mg PO Q2H PRN PRN Reason: pain/air hunger Last Admin: 07/10/19 04:28 Dose: 5 mg Ondansetron HCl (Zofran Inj*) 4 mg IV Q4H PRN PRN Reason: NAUSEA/VOMITING Quetiapine Fumarate (Seroquel Tab*) 50 mg PO DAILY PRN PRN Reason: AGITATION/ANXIETY Last Admin: 07/08/19 20:55 Dose: 50 mg Senna (Senokot 8.6 Mg Tab*) 1 tab PO DAILY PRN PRN Reason: CONSTIPATION Last Admin: 07/08/19 20:54 Dose: 1 tab Vital Signs - 8 hr 07/10/19 07/10/19 07/10/19 04:28 04:47 04:54 Temperature Pulse Rate Respiratory 16 16 16 Rate Blood Pressure (mmHg) O2 Sat by Pulse Oximetry 07/10/19 07/10/19 07/10/19 06:37 06:53 07:37 Temperature 98.1 F Pulse Rate 89 Respiratory 16 16 20 Rate Blood Pressure 134/63 (mmHg) O2 Sat by Pulse 94 Oximetry 07/10/19 07/10/19 07/10/19 07:59 10:45 11:09 Temperature 99.2 F Pulse Rate 89 Respiratory 20 18 18 Rate Blood Pressure 116/71 (mmHg) O2 Sat by Pulse 99 Oximetry Oxygen Devices in Use Now: None Appearance: Thin, elderly white female, laying in bed, appearing comfortable and in mild distress, calling out Eyes: No Scleral Icterus Ears/Nose/Mouth/Throat: Mucous Membranes Moist Neck: Trachea Midline Respiratory: Symmetrical Chest Expansion and Respiratory Effort Cardiovascular: NL Sounds; No Murmurs; No JVD, RRR Abdominal: - - abd soft, nontender, nondistended Extremities: No Edema, No Clubbing, Cyanosis Skin: No Rash or Ulcers Neurological: - - alert, oriented to self Result Diagrams: 07/07/19 21:34 07/07/19 21:34 Microbiology and Other Data: Microbiology 07/08/19 03:09 Nasal Screen MRSA (PCR) - Final Nasal Mrsa Not Detected Assess/Plan/Problems-Billing Assessment: 88 yo female with PMHx CM with EF 30%, CAD, HTN, hypothyroidism, paroxysmal SVT , and lupus presents after an unwitnessed fall, found to have right hip fracture. - Patient Problems (1) Comfort measures only status Current Visit: Yes Status: Acute Code(s): Z51.5 - ENCOUNTER FOR PALLIATIVE CARE SNOMED Code(s): 47580038971910 Comment: -has had progressive dementia, worsening in the last 3 months -presented after fall, found to have right hip fracture -family opting for nonoperative management and planning to proceed to hospice at home -continue prn morphine and ativan (2) DNR (do not resuscitate) Current Visit: No Status: Acute Status and Disposition: planning for hospice at home, awaiting hospital bed delivery
[2019-07-11] MEDS: Morphine ORAL CONCENTRATE* 5 MG/0.25 ML ORAL.SYRIN PO PRN ×2 (00:05→09:58)
[2019-07-11] MEDS: LORazepam TAB(*) 0.5 MG PO PRN (00:18)
--- NOTE | 2019-07-11 11:13 | DS ---
DISCHARGE SUMMARY: DATE OF ADMISSION: 07/08/19 DATE OF DISCHARGE: 07/11/19 PRIMARY CARE PROVIDER: Dr. Carrillo. PRINCIPAL DIAGNOSIS: Right hip fracture. SECONDARY DIAGNOSIS: Dementia. DISCHARGE MEDICATIONS: 1. Seroquel 50 mg p.o. daily p.r.n. agitation. 2. Morphine oral concentrate 10 mg p.o. q.2 hours p.r.n. pain or air hunger, maximum daily dose of 6 mL. 3. Ativan 0.5 mg p.o. q.4 hours p.r.n. pain or air hunger. HOSPITAL COURSE: Ms. Hickey is an 88-year-old female, who had been residing at [facility] and had been declining over the last several months per her family. The patient was hospitalized at [facility] from 07/04/19 through 07/07, where she was treated for urinary tract infection likely precipitating falls. The patient was discharged back to [place]. She re-presented to the emergency room on 07/07/19 in the evening. At that time, she had had another fall and sustained a right hip fracture. The patient was evaluated by Orthopedic Surgery; however, given her overall decline over the last 3 months and specifically over the last week or so, the patient's family had opted for hospice. Surgery was not performed. The patient was seen in consultation by Dr. Connell, who felt the patient qualified for home hospice. The patient is being discharged home today 07/11/19. FOLLOWUP CONCERNS: The patient is being discharged home with hospice services today, 07/11/19. ACTIVITY LEVEL: As tolerated. DIET: As tolerated. CONDITION ON DISCHARGE: Guarded. TIME SPENT: 15 minutes was spent on this discharge. [id number]/[facility] #: [id number] [place]
== END 2019-07-11 10:25 | disposition hospice, home (50) | DRG 535 ==
LOC: ED 21:19 → SSU 07-08 02:23 → MED 07-10 10:36
PROVIDERS: ADMIT Internal Medicine; ATTEND Hospitalist
DX: S72.141A Displaced intertrochanteric fracture of right femur, initial encounter for closed fracture (principal); J96.90 Respiratory failure, unspecified, unspecified whether with hypoxia or hypercapnia; I42.9 Cardiomyopathy, unspecified; N39.0 Urinary tract infection, site not specified; N17.9 Acute kidney failure, unspecified; F02.81 Dementia in other diseases classified elsewhere, unspecified severity, with behavioral disturbance; G30.9 Alzheimer's disease, unspecified; I25.10 Atherosclerotic heart disease of native coronary artery without angina pectoris; W19.XXXA Unspecified fall, initial encounter; I10 Essential (primary) hypertension; E03.9 Hypothyroidism, unspecified; M32.9 Systemic lupus erythematosus, unspecified; Z66 Do not resuscitate; R29.6 Repeated falls; R50.9 Fever, unspecified; Z51.5 Encounter for palliative care; M81.0 Age-related osteoporosis without current pathological fracture; Z87.891 Personal history of nicotine dependence; Z88.8 Allergy status to other drugs, medicaments and biological substances; Y92.099 Unspecified place in other non-institutional residence as the place of occurrence of the external cause; Z79.899 Other long term (current) drug therapy
CPT/HCPCS: 36415; 71045; 71046; 80053; 81003; 83880; 85025; 85610; 85730; 86850; 86900; 86901; 87641; 93005; 93306; 96361; 96365; 99285; A9270-GY; J0696; J1644; J2270; J2543